=== PATIENT | male | born 1945 | race Caucasian/White ===

== ENCOUNTER 2016-07-19 15:15 | Emergency (ER) | payer MEDICARE, OTHER ==
[~2016-07-19] VITALS: Ht 182.9 cm; Wt 120.0 kg
[~2016-07-19 15:15] MED LIST: ASPI325T PO; B-122000 PO; CO Q100C9 PO; FISH1000 PO; GARL500T PO; GLUCTAB PO; MECL25 PO; METO50TA PO; PRAV40TA2 PO; VITA-13 PO
[2016-07-19 15:33] VITALS: BP 177/84; PULSE 96; RESP 16; TEMP 97.8; O2SAT 99
--- NOTE | 2016-07-19 15:39 | PD ---
HPI Chief Complaint: Abdominal Pain Time Seen by Provider: 15:25 Travel History International Travel<30 days: No Contact w/Intl Traveler<30days: No Traveled to known affect area: No History of Present Illness HPI This patient complains of abdominal pain. Duration 2 days. Severity is moderate. He's had nausea and vomiting. No diarrhea or fever. Symptoms have no alleviating factors. His pain is worse after eating. No history of abdominal surgeries. He denies liver or gallbladder or pancreas disease or being an alcohol abuser. He had initially said chest pain but this is clearly abdominal pain and he is not having chest pain. PFSH Past Medical History Arthritis: Yes Autoimmune Disease: No Blood Disorders: No Anxiety: No Depression: No Heart Rhythm Problems: No Cancer: No Cardiovascular Problems: Yes High Cholesterol: Yes Chemotherapy: Yes Chest Pain: No Congestive Heart Failure: No Cerebrovascular Accident: No Diabetes: Yes Diminished Hearing: No Endocrine: No Gastrointestinal Disorders: No Glaucoma: No Gout: Yes Genitourinary: No Hepatitis: No Hiatal Hernia: No Hypertension: Yes Immune Disorder: No Implanted Vascular Access Dvce: No Kidney Stones: No Musculoskeletal: No Neurologic: No Psychiatric: No Reproductive: No Respiratory: No Migraines: No Pneumonia: Yes Radiation Therapy: No Renal Failure: No Seizures: No Sickle Cell Disease: No Thyroid Disease: No PNEUMOCCOCAL Vaccine (Year): 2009 Past Surgical History Abdominal Surgery: No AICD: No Arteriovenous Shunt: No Body Medical Devices: CONCRETE PUMP OPERATOR HELPER SHUNT Cardiac Surgery: No Ear Surgery: No Endocrine Surgery: No Eye Surgery: No Genitourinary Surgery: No Gynecologic Surgery: No Insulin Pump: No Joint Replacement: Yes Neurologic Surgery: Yes (CONCRETE PUMP OPERATOR HELPER SHUNT) Oral Surgery: No Pacemaker: No Thoracic Surgery: No Tonsillectomy: Yes Other Surgery: Yes (BACK 1978, 1983, 1988, 2013) Social History Alcohol Use: No Tobacco Use: No (QUIT 30 YRS AGO) Substance Use: No Allergies-Medications (Allergen,Severity, Reaction): Coded Allergies: No Known Allergies (Verified , 09/25/15) Reported Meds & Prescriptions Reported Meds & Active Scripts Active Antivert (Meclizine HCl) 25 Mg Tab 25 Mg PO Q8H PRN Reported Garlic Tab 1 Tab PO DAILY Aspirin 325 mg (Aspirin) 325 Mg Tab 0.5 Tab PO DAILY Metoprolol Tartrate 50 mg (Metoprolol Tartrate) 50 Mg Tab 50 Mg PO BID B-12 (Cyanocobalamin) 2,000 Mcg Tab 2,000 Mcg PO DAILY Vitamin D3 (Cholecalciferol) 1,000 Unit Tab 1,000 Unit PO DAILY Co Q 10 (Coenzyme Q10) 100 Mg Cap 100 Mg PO DAILY Fish Oil 1,000 Mg Cap 1,000 Mg PO DAILY Pravastatin Sodium 40 Mg Tab 40 Mg PO HS Metformin (Metformin HCl) 500 Mg Tab 500 Mg PO BID Review of Systems General / Constitutional: No: Fever Eyes: No: Visual changes HENT: No: Headaches Cardiovascular: No: Chest Pain or Discomfort Respiratory: No: Shortness of Breath Gastrointestinal: Positive: Nausea, Vomiting, Abdominal Pain Genitourinary: No: Dysuria Musculoskeletal: No: Pain Skin: No Rash Neurologic: No: Weakness Psychiatric: No: Depression Endocrine: No: Polydipsia Hematologic/Lymphatic: No: Easy Bruising Physical Exam Narrative GENERAL: Well-nourished, well-developed patient with abdominal pain. SKIN: Warm and dry. HEAD: Atraumatic. Normocephalic. Has a CONCRETE PUMP OPERATOR HELPER shunt EYES: Pupils equal and round. No scleral icterus. No injection or drainage. ENT: No nasal bleeding or discharge. Mucous membranes pink and moist. NECK: Trachea midline. No JVD. CARDIOVASCULAR: Regular rate and rhythm. No murmur appreciated. RESPIRATORY: No accessory muscle use. Clear to auscultation. Breath sounds equal bilaterally. GASTROINTESTINAL: Abdomen soft, upper abdomen is tender without rebound or guarding. Lower quadrants are not tender, nondistended. Hepatic and splenic margins not palpable. MUSCULOSKELETAL: No obvious deformities. No clubbing. No cyanosis. No edema. NEUROLOGICAL: Awake and alert. No obvious cranial nerve deficits. Motor grossly within normal limits. Normal speech. PSYCHIATRIC: Appropriate mood and affect; insight and judgment reasonable. Data Data Last Documented VS Vital Signs Date Time Temp Pulse Resp B/P Pulse Ox O2 Delivery O2 Flow Rate FiO2 07/19/16 15:33 97.8 96 16 177/84 99 MDM Medical Decision Making Medical Screen Exam Complete: Yes Emergency Medical Condition: Yes Medical Record Reviewed: Yes Differential Diagnosis Cholecystitis, pancreatitis, hepatitis Narrative Course I have reviewed the patient's electronic medical record. This patient has 2 days of upper abdominal pain. I've ordered a workup to include lab studies and a CT of abdomen and pelvis. Case checked out to 4 PM physician to assist with disposition after workup complete. I did review his EKG which shows sinus rhythm but no ST elevation Pablito Tong MD Jul 19, 2016 15:39
[2016-07-19] MEDS ORDERED: METO50TA PO (15:42)
[2016-07-19] MEDS ORDERED: OMEG100010 PO (15:42)
[2016-07-19] MEDS ORDERED: PRAV40TA2 PO (15:42)
[2016-07-19] MEDS ORDERED: VITA100018 PO (15:42)
[2016-07-19] MEDS ORDERED: GLUCTAB PO (15:42)
[2016-07-19] MEDS ORDERED: B-122000 PO (15:42)
[2016-07-19] MEDS ORDERED: ASPI325T PO (15:42)
[2016-07-19] MEDS ORDERED: COEN1CAP PO (15:42)
[2016-07-19] MEDS ORDERED: ONDANSETRON HCL 4 MG/2 ML VIAL IVP ONE (15:45)
[2016-07-19] MEDS ORDERED: SODIUM CHLORIDE 0.9% FLUSH 5 ML FLUSH IVF PRN (15:45)
[2016-07-19 15:55] VITALS: O2SAT 95
[2016-07-19 16:09] LABS: AUTOMATED NEUTROPHIL # 6.6 TH/MM3 (1.8-7.7); BASOPHIL # 0.1 TH/MM3 (0-0.2); BASOPHIL % 0.6 % (0.0-2.0); EOSINOPHIL # 0.3 TH/MM3 (0-0.4); HEMATOCRIT 44.5 % (39.0-51.0); HEMO FLAGS DIFF FINAL; LYMPH % 28.9 % (9.0-44.0); LYMPHOCYTE # 3.1 TH/MM3 (1.0-4.8); MEAN CELL VOLUME 87.6 FL (80.0-100.0); MEAN CORPUSCULAR HEMOGLOBIN 29.6 PG (27.0-34.0); MEAN CORPUSCULAR HGB CONC 33.7 % (32.0-36.0); MONO % 6.1 % (0.0-8.0); NEUT % 61.4 % (16.0-70.0); PLATELET COUNT 256 TH/MM3 (150-450); RED BLOOD COUNT 5.08 MIL/MM3 (4.50-5.90); RED CELL DISTRIBUTION WIDTH 12.3 % (11.6-17.2); WHITE BLOOD COUNT 10.8 TH/MM3 (4.0-11.0)
[2016-07-19 16:18] LABS: CHLORIDE 102 MEQ/L (98-107); POTASSIUM 4.3 MEQ/L (3.5-5.1); SODIUM (NA) 139 MEQ/L (136-145)
[2016-07-19 16:22] LABS: ANION GAP 12 MEQ/L (5-15); BICARBONATE 24.7 MEQ/L (21.0-32.0); BLOOD UREA NITROGEN 16 MG/DL (7-18)
[2016-07-19 16:23] LABS: APTT (PATIENT) 29.6 SEC (24.3-30.1); PROTHROMBIN TIME - PATIENT 10.7 SEC (9.8-11.6)
[2016-07-19 16:24] LABS: ALT (GPT) 31 U/L (12-78); AST (GOT) 24 U/L (15-37)
[2016-07-19 16:25] LABS: GLOMERULAR FILTRATION RATE 73 ML/MIN (>89)
[2016-07-19 16:26] LABS: TOTAL BILIRUBIN ADULT 0.4 MG/DL (0.2-1.0)
[2016-07-19 16:27] LABS: ALKALINE PHOSPHATASE 70 U/L (45-117)
--- NOTE | 2016-07-19 16:49 | PD ---
Physical Exam Date Seen by Provider: Jul 19, 2016 Time Seen by Provider: 16:48 Narrative This 71-year-old male says he been having abdominal discomfort for quite a while. He thinks this may be a couple of weeks. He says his stomach is churning all of time. He has a lot of gas. Soon after eating he feels like burping up of food before doesn't actually come up. He has a history of diabetes for 3-4 years he has numbness in her legs. Neuropathy. He says his left arm was starting to go numb now. He has tried Mylanta without much relief. He has a CSF shunt Data Data Last Documented VS Vital Signs Date Time Temp Pulse Resp B/P Pulse Ox O2 Delivery O2 Flow Rate FiO2 07/19/16 15:55 95 07/19/16 15:35 16 07/19/16 15:33 97.8 96 177/84 Orders Complete Blood Count With Diff (07/19/16 15:40) Comprehensive Metabolic Panel (07/19/16 15:40) Lipase (07/19/16 15:40) Prothrombin Time / Inr (Pt) (07/19/16 15:40) Act Partial Throm Time (Ptt) (07/19/16 15:40) Ct Abd/Pel W Iv Contrast(Rout) (07/19/16 15:40) Iv Access Insert/Monitor (07/19/16 15:40) Ecg Monitoring (07/19/16 15:40) Oximetry (07/19/16 15:40) NPO (07/19/16 15:40) Ondansetron Inj (Zofran Inj) (07/19/16 15:45) Sodium Chloride 0.9% Flush (Ns Flush) (07/19/16 15:45) Labs Laboratory Tests Test 07/19/16 15:27 White Blood Count 10.8 TH/MM3 Red Blood Count 5.08 MIL/MM3 Hemoglobin 15.0 GM/DL Hematocrit 44.5 % Mean Corpuscular Volume 87.6 FL Mean Corpuscular Hemoglobin 29.6 PG Mean Corpuscular Hemoglobin 33.7 % Concent Red Cell Distribution Width 12.3 % Platelet Count 256 TH/MM3 Mean Platelet Volume 6.7 FL Neutrophils (%) (Auto) 61.4 % Lymphocytes (%) (Auto) 28.9 % Monocytes (%) (Auto) 6.1 % Eosinophils (%) (Auto) 3.0 % Basophils (%) (Auto) 0.6 % Neutrophils # (Auto) 6.6 TH/MM3 Lymphocytes # (Auto) 3.1 TH/MM3 Monocytes # (Auto) 0.7 TH/MM3 Eosinophils # (Auto) 0.3 TH/MM3 Basophils # (Auto) 0.1 TH/MM3 CBC Comment DIFF FINAL Differential Comment Prothrombin Time 10.7 SEC Prothromb Time International 1.0 RATIO Ratio Activated Partial 29.6 SEC Thromboplast Time Sodium Level 139 MEQ/L Potassium Level 4.3 MEQ/L Chloride Level 102 MEQ/L Carbon Dioxide Level 24.7 MEQ/L Anion Gap 12 MEQ/L Blood Urea Nitrogen 16 MG/DL Creatinine 1.00 MG/DL Estimat Glomerular Filtration 73 ML/MIN Rate Random Glucose 121 MG/DL Calcium Level 9.2 MG/DL Total Bilirubin 0.4 MG/DL Aspartate Amino Transf 24 U/L (AST/SGOT) Alanine Aminotransferase 31 U/L (ALT/SGPT) Alkaline Phosphatase 70 U/L Total Protein 7.9 GM/DL Albumin 3.7 GM/DL Lipase 134 U/L [facility] Medical Record Reviewed: No Supervised Visit with KELLY: No Differential Diagnosis Differential includes gastritis, reflux, Narrative Course Lab work is unremarkable. She's Gurdeep ordered a CT scan which has not shown an etiology for the pain. He will be given a trial of an accident. Diagnosis Primary Impression: GERD (gastroesophageal reflux disease) Scripts Pantoprazole (Protonix)40 Mg Tab40 Mg PO DAILY #30 TAB Ref 0 Prov:Virgilio Lizarraga MD 07/19/16 Disposition: 01 DISCHARGE HOME Condition: Stable Virgilio Lizarraga MD Jul 19, 2016 16:49
--- NOTE | 2016-07-19 18:09 | RADHPO ---
EXAM DATE/TIME: 07/19/2016 17:41 [facility] COMPARISON: No previous studies available for comparison. INDICATIONS : Diffuse abdominal pain with nausea and vomiting. IV CONTRAST: 95 cc Omnipaque 350 (iohexol) IV ORAL CONTRAST: No oral contrast ingested. RADIATION DOSE: 21.71 CTDIvol (mGy) MEDICAL HISTORY : Hypertension. Diabetes mellitus type 2. SURGICAL HISTORY : Lumbar fusion. Bilateral hip replacement. ENCOUNTER: Initial ACUITY: 1 day PAIN SCALE: 7/10 LOCATION: Abdomen. TECHNIQUE: Volumetric scanning of the abdomen and pelvis was performed. Using automated exposure control and ad justment of the mA and/or kV according to patient size, radiation dose was kept as low as reasonably achievable to obtain optimal diagnostic quality images. FINDINGS: Lung bases demonstrate minimal linear scarring or atelectasis. Tiny nodules stable compared with 2014 . Moderate to severe coronary calcifications. Diffuse fatty liver. Spleen, adrenals and pancreas unremarkable.. Tiny nonobstructing left renal calc ulus. Right kidney unremarkable. No free fluid. No bowel obstruction. No adenopathy. No free air. Bilateral hip prostheses. CONCLUSION: 1. No acute findings within the abdomen. Stable fatty liver. Catheter fragment remains in right upper quadrant, unchanged from April 2015. Tiny nonobstructing left renal calculus. 2. Severe coronary calcifications. Darryl Laboy MD on July 19, 2016 at 18:02 Board Certified Radiologist. This report was verified electronically.
[2016-07-19] MEDS ORDERED: PROT40TA PO (18:32)
[2016-07-19 18:33] VITALS: BP 149/88
[2016-07-19] MEDS ORDERED: IOHEXOL 350 MG/ML 10 ML VIAL (for RAD DIAG) IV ONE (22:23)
--- NOTE | 2016-07-22 23:07 | EKG ---
Date Performed: 07/19/2016 Time Performed: 15:15:16 PTAGE: 71 years EKG: Sinus tachycardia. ST junctional depression is nonspecific Borderline ECG PREVIOUS TRACING : 09/25/2015 11.01 Compared to prior tracing no significant change DOCTOR: Watson Levine Interpretating Date/Time 07/22/2016 23:05:54
== END 2016-07-19 18:57 | disposition home or self-care (01) ==
LOC: PHED 15:15
DX: K21.9 Gastro-esophageal reflux disease without esophagitis (principal); R11.2 Nausea with vomiting, unspecified; E78.00 Pure hypercholesterolemia, unspecified; E11.9 Type 2 diabetes mellitus without complications; I10 Essential (primary) hypertension; R94.31 Abnormal electrocardiogram [ECG] [EKG]
CPT/HCPCS: 74177; 80053; 83690; 85025; 85610; 85730; 93005; 96374; 99284; J2405; Q9967

== ENCOUNTER 2016-11-23 17:59 | Emergency (ER) | payer OTHER ==
[~2016-11-23] VITALS: Ht 182.9 cm; Wt 118.7 kg
[~2016-11-23 17:59] MED LIST changes: -CO Q100C9 PO; +COEN1CAP PO; -FISH1000 PO; -GARL500T PO; -MECL25 PO; +OMEG100010 PO; +PROT40TA PO; -VITA-13 PO; +VITA100018 PO
[2016-11-23 18:08] VITALS: BP 154/88; PULSE 91; RESP 16; TEMP 98.5; O2SAT 94
[2016-11-23] MEDS ORDERED: PYRI100T PO (18:24)
[2016-11-23] MEDS ORDERED: CINN500C12 PO (18:24)
[2016-11-23 18:25] VITALS: BP 150/78; PULSE 77; RESP 18; O2SAT 95
[2016-11-23] MEDS ORDERED: SODIUM CHLOR 0.9% 1000 ML INJ 1,000 ML IV SCH (18:44)
[2016-11-23] MEDS ORDERED: MORPHINE SULFATE 4 MG/ML INJ IV PUSH ONE (18:45)
[2016-11-23] MEDS ORDERED: ONDANSETRON HCL 4 MG/2 ML VIAL IVP ONE (18:45)
[2016-11-23] MEDS ORDERED: SODIUM CHLORIDE 0.9% FLUSH 10 ML FLUSH IV FLUSH PRN (18:45)
[2016-11-23 18:54] LABS: AUTOMATED NEUTROPHIL # 6.8 TH/MM3 (1.8-7.7); BASOPHIL % 0.2 % (0.0-2.0); EOSINOPHIL # 0.3 TH/MM3 (0-0.4); EOSINOPHIL % 2.5 % (0.0-4.0); HEMATOCRIT 45.3 % (39.0-51.0); HEMO FLAGS DIFF FINAL; LYMPHOCYTE # 2.6 TH/MM3 (1.0-4.8); MEAN CELL VOLUME 89.2 FL (80.0-100.0); MEAN CORPUSCULAR HEMOGLOBIN 29.3 PG (27.0-34.0); MEAN CORPUSCULAR HGB CONC 32.8 % (32.0-36.0); NEUT % 65.3 % (16.0-70.0); PLATELET COUNT 252 TH/MM3 (150-450); RED BLOOD COUNT 5.07 MIL/MM3 (4.50-5.90); RED CELL DISTRIBUTION WIDTH 13.2 % (11.6-17.2); WHITE BLOOD COUNT 10.4 TH/MM3 (4.0-11.0)
--- NOTE | 2016-11-23 18:57 | PD ---
HPI Chief Complaint: Abdominal Pain Time Seen by Provider: 18:39 Travel History International Travel<30 days: No Contact w/Intl Traveler<30days: No Traveled to known affect area: No History of Present Illness HPI Patient is a 71-year-old male presents emergency department with left lower quadrant abdominal pain with nausea without vomiting diarrhea constipation for the past few days gradually worsening. Patient states it comes on in waves. States she's not had pain like this before. Denies any abdominal surgeries in the past. Patient does state he has a history of a PROPOSAL ANALYST shunt. States the pain is moderate worsens with palpation. Cramping in nature. Denies any dysuria. Denies any fever. Denies any chest pain headache shortness of breath. PFSH Past Medical History Arthritis: Yes Autoimmune Disease: No Blood Disorders: No Anxiety: No Depression: No Heart Rhythm Problems: No Cancer: No Cardiovascular Problems: Yes High Cholesterol: Yes Chemotherapy: Yes Chest Pain: No Congestive Heart Failure: No Cerebrovascular Accident: No Diabetes: Yes Patient Takes Glucophage: Yes ([id number]) Diminished Hearing: No Endocrine: No Gastrointestinal Disorders: No Glaucoma: No Gout: Yes Genitourinary: No Hepatitis: No Hiatal Hernia: No Hypertension: Yes Immune Disorder: No Implanted Vascular Access Dvce: Yes Kidney Stones: No Musculoskeletal: No Neurologic: No Psychiatric: No Reproductive: No Respiratory: No Immunizations Current: Yes Migraines: No Pneumonia: Yes Radiation Therapy: No Renal Failure: No Seizures: No Sickle Cell Disease: No Thyroid Disease: No Tetanus Vaccination: < 5 Years Influenza Vaccination: Yes PNEUMOCCOCAL Vaccine (Year): 2009 Past Surgical History Abdominal Surgery: No AICD: No Arteriovenous Shunt: No Body Medical Devices: PROPOSAL ANALYST SHUNT Cardiac Surgery: No Ear Surgery: No Endocrine Surgery: No Eye Surgery: No Genitourinary Surgery: No Gynecologic Surgery: No Insulin Pump: No Joint Replacement: Yes (HIPS) Neurologic Surgery: Yes (PROPOSAL ANALYST SHUNT) Oral Surgery: No Pacemaker: No Thoracic Surgery: No Tonsillectomy: Yes Other Surgery: Yes (PROPOSAL ANALYST SHUNT) Social History Alcohol Use: No Tobacco Use: No (QUIT 30 YRS AGO) Substance Use: No Allergies-Medications (Allergen,Severity, Reaction): Coded Allergies: No Known Allergies (Verified , 11/23/16) Reported Meds & Prescriptions Reported Meds & Active Scripts Active Zofran Odt (Ondansetron Odt) 4 Mg Tab 4 Mg SL Q6HR PRN Bentyl (Dicyclomine HCl) 10 Mg Cap 10 Mg PO TID PRN Protonix (Pantoprazole Sodium) 40 Mg Tab 40 Mg PO DAILY Reported Hm Cinnamon (Cinnamon) 500 Mg Cap 2,000 Mg PO DAILY Vitamin B-6 (Pyridoxine HCl) 100 Mg Tab 100 Mg PO DAILY Pravastatin 40 Mg Tab 40 Mg PO HS [place] 3 1000 mg ([place]-3 Fatty Acids) 1 Cap Cap 1 Cap PO DAILY Metoprolol Tartrate 50 Mg Tab 50 Mg PO BID Glucophage XR (Metformin HCl) 500 Mg Shawna 500 Mg PO BID With evening meal B-12 (Cyanocobalamin) 2,000 Mcg Tab 2,000 Mcg PO DAILY Co Q-10 (Coenzyme Q10 (Ubidecarenone)) 100 Mg Cap 1 Cap PO DAILY Vitamin D3 (Cholecalciferol) 1,000 Unit Tab 2,000 Units PO DAILY Aspirin 325 Mg Tab 0.5 Tab PO DAILY Review of Systems Except as stated in HPI: all other systems reviewed are Neg Physical Exam Narrative GENERAL: Well-developed well-nourished no apparent distress SKIN: No bruising no rash no wound. HEAD: Atraumatic. Normocephalic. EYES: Pupils equal and round. No scleral icterus. No injection or drainage. ENT: No nasal bleeding or discharge. Mucous membranes pink and moist. NECK: Trachea midline. No JVD. CARDIOVASCULAR: Regular rate and rhythm. No murmur appreciated. RESPIRATORY: No accessory muscle use. Clear to auscultation. Breath sounds equal bilaterally. GASTROINTESTINAL: Abdomen soft, moderately tender in the left lower quadrant without rebound or percussive tenderness. Fairly well localizing abdominal pain. No CVA tenderness. nondistended. Hepatic and splenic margins not palpable. Overlying skin normal. MUSCULOSKELETAL: No obvious deformities. No clubbing. No cyanosis. No edema. NEUROLOGICAL: Awake and alert. No obvious cranial nerve deficits. Motor grossly within normal limits. Normal speech. PSYCHIATRIC: Appropriate mood and affect; insight and judgment normal. Data Data Last Documented VS Vital Signs Date Time Temp Pulse Resp B/P Pulse Ox O2 Delivery O2 Flow Rate FiO2 11/23/16 21:02 70 17 150/71 96 11/23/16 20:18 Room Air 11/23/16 18:08 98.5 Orders Complete Blood Count With Diff (11/23/16 18:44) Comprehensive Metabolic Panel (11/23/16 18:44) Lipase (11/23/16 18:44) Urinalysis - C+S If Indicated (11/23/16 18:44) Ct Abd/Pel W Iv Contrast(Rout) (11/23/16 18:44) Iv Access Insert/Monitor (11/23/16 18:44) Ecg Monitoring (11/23/16 18:44) Oximetry (11/23/16 18:44) Morphine Inj (Morphine Inj) (11/23/16 18:45) Ondansetron Inj (Zofran Inj) (11/23/16 18:45) Sodium Chlor 0.9% 1000 Ml Inj (Ns 1000 M (11/23/16 18:44) Sodium Chloride 0.9% Flush (Ns Flush) (11/23/16 18:45) Iohexol 350 Inj (Omnipaque 350 Inj) (11/23/16 19:42) Urine Culture (11/23/16 19:40) Labs Laboratory Tests Test 11/23/16 11/23/16 18:25 19:40 White Blood Count 10.4 TH/MM3 Red Blood Count 5.07 MIL/MM3 Hemoglobin 14.9 GM/DL Hematocrit 45.3 % Mean Corpuscular Volume 89.2 FL Mean Corpuscular Hemoglobin 29.3 PG Mean Corpuscular Hemoglobin 32.8 % Concent Red Cell Distribution Width 13.2 % Platelet Count 252 TH/MM3 Mean Platelet Volume 6.7 FL Neutrophils (%) (Auto) 65.3 % Lymphocytes (%) (Auto) 25.0 % Monocytes (%) (Auto) 7.0 % Eosinophils (%) (Auto) 2.5 % Basophils (%) (Auto) 0.2 % Neutrophils # (Auto) 6.8 TH/MM3 Lymphocytes # (Auto) 2.6 TH/MM3 Monocytes # (Auto) 0.7 TH/MM3 Eosinophils # (Auto) 0.3 TH/MM3 Basophils # (Auto) 0.0 TH/MM3 CBC Comment DIFF FINAL Differential Comment Sodium Level 140 MEQ/L Potassium Level 3.9 MEQ/L Chloride Level 105 MEQ/L Carbon Dioxide Level 27.8 MEQ/L Anion Gap 7 MEQ/L Blood Urea Nitrogen 16 MG/DL Creatinine 0.95 MG/DL Estimat Glomerular Filtration 78 ML/MIN Rate Random Glucose 134 MG/DL Calcium Level 8.8 MG/DL Total Bilirubin 0.3 MG/DL Aspartate Amino Transf 19 U/L (AST/SGOT) Alanine Aminotransferase 35 U/L (ALT/SGPT) Alkaline Phosphatase 83 U/L Total Protein 7.3 GM/DL Albumin 3.6 GM/DL Lipase 125 U/L Urine Color YELLOW Urine Turbidity CLEAR Urine pH 5.5 Urine Specific [place] 1.019 Urine Protein NEG mg/dL Urine Glucose (UA) NEG mg/dL Urine Ketones NEG mg/dL Urine Occult Blood NEG Urine Nitrite NEG Urine Bilirubin NEG Urine Leukocyte Esterase NEG Urine RBC 0-3 /hpf Urine WBC 3-5 /hpf Urine WBC Clumps OCC Urine Squamous Epithelial 0-5 /hpf Cells Urine Calcium Oxalate Crystals RARE /hpf Urine Mucus OCC /lpf Microscopic Urinalysis Comment CULTURE INDICATED MDM Medical Decision Making Medical Screen Exam Complete: Yes Emergency Medical Condition: Yes Differential Diagnosis Diverticulitis, colitis, constipation, diverticular abscess, acute abdomen unlikely, cholecystitis and likely, pancreatitis unlikely, urinary tract infection, kidney stone seems unlikely. Narrative Course Patient was roomed emergency department, he was given morphine and Zofran. Feeling somewhat better afterward still having some abdominal cramping. He states that his stools have been fairly hard recently as well. Denies any blood in the stool again. Initial workup including CBC CMP and urinalysis are reassuring. Patient underwent CAT scan showing no obvious cause of his pain. Discussed with the patient's symptom management and management. He would like to go home currently. I discussed need for follow-up with his primary care physician return to ED criteria. Discussed using [id number] stool softeners including MiraLAX and prune juice. He is agreeable for an outpatient trial. Diagnosis Primary Impression: LLQ abdominal pain Referrals: Laquita Chacko MD Med/Other Pt SpecificInfo: Prescription(s) given Scripts Ondansetron Odt (Zofran Odt)4 Mg Tab4 Mg SL Q6HR PRN (Nausea/Vomiting) #30 TAB Ref 0 Prov:Eladio Weinberg MD 11/23/16 Dicyclomine (Bentyl)10 Mg Cap10 Mg PO TID PRN (Bowel Management) #20 CAP Ref 0 Prov:Eladio Weinberg MD 11/23/16 Disposition: 01 DISCHARGE HOME Condition: Stable Eladio eWinberg MD November 23, 2016 18:57
[2016-11-23 18:59] VITALS: O2SAT 95
[2016-11-23 19:03] LABS: CHLORIDE 105 MEQ/L (98-107); POTASSIUM 3.9 MEQ/L (3.5-5.1); SODIUM (NA) 140 MEQ/L (136-145)
[2016-11-23 19:05] VITALS: BP 144/76; PULSE 76; RESP 16; O2SAT 95
[2016-11-23 19:07] LABS: ANION GAP 7 MEQ/L (5-15); BICARBONATE 27.8 MEQ/L (21.0-32.0); BLOOD UREA NITROGEN 16 MG/DL (7-18)
[2016-11-23 19:10] LABS: ALT (GPT) 35 U/L (12-78); AST (GOT) 19 U/L (15-37); GLOMERULAR FILTRATION RATE 78 ML/MIN (>89)
[2016-11-23 19:11] LABS: TOTAL BILIRUBIN ADULT 0.3 MG/DL (0.2-1.0)
[2016-11-23 19:12] LABS: ALKALINE PHOSPHATASE 83 U/L (45-117)
[2016-11-23] MEDS ORDERED: IOHEXOL 350 MG/ML 10 ML VIAL (for RAD DIAG) IV ONE (19:42)
[2016-11-23 19:55] LABS: BLOOD, URINE NEG (NEG); GLUCOSE,URINE NEG (NEG); KETONE, URINE NEG (NEG); NITRITE,URINE NEG (NEG); PH, URINE 5.5 (5.0-8.5)
--- NOTE | 2016-11-23 20:01 | RADHPO ---
EXAM DATE/TIME: 11/23/2016 19:25 [facility] COMPARISON: CT ABDOMEN & PELVIS W CONTRAST, July 19, 2016, 17:41. INDICATIONS : Left side abdominal pain. IV CONTRAST: 95 cc Omnipaque 350 (iohexol) IV ORAL CONTRAST: No oral contrast ingested. RADIATION DOSE: 22.94 CTDIvol (mGy) MEDICAL HISTORY : Hypertension. Diabetes mellitus type 2. SURGICAL HISTORY : RAILROAD POLICE shunt, lumbar surgery, bilateral hip surgery ENCOUNTER: Initial ACUITY: 1 week PAIN SCALE: 4/10 LOCATION: Left lateral TECHNIQUE: Volumetric scanning of the abdomen and pelvis was performed. Using automated exposure control and ad justment of the mA and/or kV according to patient size, radiation dose was kept as low as reasonably achievable to obtain optimal diagnostic quality images. FINDINGS: Moderate coronary artery calcifications are noted. There is no pericardial effusion. Liver is free of focal defects. Spinal stimulator lead is noted. Spleen, pancreas, adrenal glands and kidneys are unremarkable. There is no ascites or adenopathy. I do not see any inflammatory changes in the left side of the abdomen. Pelvic contents are unremarkable. Total hip arthroplasty is present. CONCLUSION: 1. I do not see an etiology for the patient's left-sided abdominal pain. There is no evidence for p yelonephritis or inflammatory component. 2. There are degenerative changes in the lumbar spine. Hitesh Gillis MD FACR on November 23, 2016 at 19:52 Board Certified Radiologist. This report was verified electronically.
[2016-11-23 20:17] LABS: URINE COLOR YELLOW (YELLW/STRAW)
[2016-11-23 20:18] VITALS: BP 153/79; PULSE 74; RESP 18; O2SAT 96
[2016-11-23 20:18] LABS: MUCUS URINE OCC /lpf (OCC); RBC, URINE 0-3 /hpf (0-3)
[2016-11-23 20:19] LABS: CALCIUM OXALATE CRYSTALS,URINE RARE /hpf; SQUAMOUS EPITHELIAL CELL URINE 0-5 /hpf (0-5)
[2016-11-23 20:21] LABS: COMMENT (UR) CULTURE INDICATED; CULTURE IF INDICATED CULTURE INDICATED
[2016-11-23] MEDS ORDERED: DICY10 PO (20:46)
[2016-11-23] MEDS ORDERED: ZOFR4TAB3 SL (20:46)
[2016-11-23 21:02] VITALS: BP 150/71
== END 2016-11-23 21:02 | disposition home or self-care (01) ==
LOC: PHED 17:59
DX: R10.32 Left lower quadrant pain (principal); E78.00 Pure hypercholesterolemia, unspecified; M10.9 Gout, unspecified; I10 Essential (primary) hypertension; Z98.2 Presence of cerebrospinal fluid drainage device
CPT/HCPCS: 74177; 80053; 81001; 83690; 85025; 87086; 96361; 96374; 96375; 99285; J2270; J2405; J7030; Q9967

== ENCOUNTER 2017-01-24 16:58 | Emergency (ER) | payer OTHER ==
[~2017-01-24 16:58] MED LIST changes: +CINN500C12 PO; +DICY10 PO; +PYRI100T PO; +ZOFR4TAB3 SL
[2017-01-24 17:04] VITALS: BP 160/115; PULSE 92; RESP 22; TEMP 98.3; O2SAT 96
[2017-01-24 17:18] VITALS: BP 175/80; PULSE 80; RESP 18; TEMP 98.3; O2SAT 94
--- NOTE | 2017-01-24 17:26 | PD ---
HPI Chief Complaint: Abnormal Results Time Seen by Provider: 17:10 Travel History International Travel<30 days: No Contact w/Intl Traveler<30days: No Traveled to known affect area: No History of Present Illness HPI This patient reports that he is been having difficulty controlling his blood sugar for the last couple of days. He says is normally around 115. Today he checked it and it was 250 so he came to the emergency room out of concern for that. He reports compliance with his metformin. He does not use insulin. He has chronic diabetic neuropathy in his feet. He complains of nausea but has no vomiting or diarrhea or fever or abdominal pain or chest pain or presyncopal symptoms. No alleviating factors. Symptoms severity is mild. Duration 2 days PFSH Past Medical History Arthritis: Yes Autoimmune Disease: No Blood Disorders: No Anxiety: No Depression: No Heart Rhythm Problems: No Cancer: No Cardiovascular Problems: Yes High Cholesterol: Yes Chemotherapy: Yes Chest Pain: No Congestive Heart Failure: No Cerebrovascular Accident: No Diabetes: Yes Diminished Hearing: No Endocrine: No Gastrointestinal Disorders: No Glaucoma: No Gout: Yes Genitourinary: No Hepatitis: No Hiatal Hernia: No Hypertension: Yes Immune Disorder: No Implanted Vascular Access Dvce: Yes Kidney Stones: No Musculoskeletal: No Neurologic: No Psychiatric: No Reproductive: No Respiratory: No Immunizations Current: Yes Migraines: No Pneumonia: Yes Radiation Therapy: No Renal Failure: No Seizures: No Sickle Cell Disease: No Thyroid Disease: No PNEUMOCCOCAL Vaccine (Year): 2009 Past Surgical History Abdominal Surgery: No AICD: No Arteriovenous Shunt: No Body Medical Devices: CARDIOVASCULAR SURGICAL TECH SHUNT Cardiac Surgery: No Ear Surgery: No Endocrine Surgery: No Eye Surgery: No Genitourinary Surgery: No Gynecologic Surgery: No Insulin Pump: No Joint Replacement: Yes (HIPS) Neurologic Surgery: Yes (CARDIOVASCULAR SURGICAL TECH SHUNT) Oral Surgery: No Pacemaker: No Thoracic Surgery: No Tonsillectomy: Yes Other Surgery: Yes (CARDIOVASCULAR SURGICAL TECH SHUNT) Social History Alcohol Use: No Tobacco Use: No (QUIT 30 YRS AGO) Substance Use: No Allergies-Medications (Allergen,Severity, Reaction): Coded Allergies: No Known Allergies (Verified , 01/24/17) Reported Meds & Prescriptions Reported Meds & Active Scripts Active Zofran Odt (Ondansetron Odt) 4 Mg Tab 4 Mg SL Q6HR PRN Bentyl (Dicyclomine HCl) 10 Mg Cap 10 Mg PO TID PRN Protonix (Pantoprazole Sodium) 40 Mg Tab 40 Mg PO DAILY Reported Hm Cinnamon (Cinnamon) 500 Mg Cap 2,000 Mg PO DAILY Vitamin B-6 (Pyridoxine HCl) 100 Mg Tab 100 Mg PO DAILY Pravastatin 40 Mg Tab 40 Mg PO HS [place] 3 1000 mg ([place]-3 Fatty Acids) 1 Cap Cap 1 Cap PO DAILY Metoprolol Tartrate 50 Mg Tab 50 Mg PO BID Glucophage XR (Metformin HCl) 500 Mg Shawna 500 Mg PO BID With evening meal B-12 (Cyanocobalamin) 2,000 Mcg Tab 2,000 Mcg PO DAILY Co Q-10 (Coenzyme Q10 (Ubidecarenone)) 100 Mg Cap 1 Cap PO DAILY Vitamin D3 (Cholecalciferol) 1,000 Unit Tab 2,000 Units PO DAILY Aspirin 325 Mg Tab 0.5 Tab PO DAILY Review of Systems General / Constitutional: No: Fever Eyes: No: Visual changes HENT: No: Headaches Cardiovascular: No: Chest Pain or Discomfort Respiratory: No: Shortness of Breath Gastrointestinal: Positive: Nausea, No: Abdominal Pain Genitourinary: No: Dysuria Musculoskeletal: No: Pain Skin: No Rash Neurologic: Positive: Sensory Disturbance, No: Weakness Psychiatric: No: Depression Endocrine: No: Polydipsia Hematologic/Lymphatic: No: Easy Bruising Physical Exam Narrative GENERAL: Well-nourished, well-developed patient in no apparent distress. SKIN: Focused skin assessment reveals no rash and nodules. Skin is Warm and dry. HEAD: Atraumatic. Normocephalic. EYES: Pupils equal and round. No scleral icterus. No injection or drainage. ENT: No nasal bleeding or discharge. Mucous membranes pink and moist. NECK: Trachea midline. No JVD. CARDIOVASCULAR: Regular rate and rhythm. No murmur appreciated. RESPIRATORY: No accessory muscle use. Clear to auscultation. Breath sounds equal bilaterally. GASTROINTESTINAL: Abdomen soft, non-tender, nondistended. Hepatic and splenic margins not palpable. MUSCULOSKELETAL: No obvious deformities. No clubbing. No cyanosis. No edema. NEUROLOGICAL: Awake and alert. No obvious cranial nerve deficits. Motor grossly within normal limits. Normal speech. PSYCHIATRIC: Appropriate mood and affect; insight and judgment normal. Data Data Last Documented VS Vital Signs Date Time Temp Pulse Resp B/P Pulse Ox O2 Delivery O2 Flow Rate FiO2 01/24/17 17:18 98.3 80 18 175/80 94 Room Air Orders Iv Access Insert/Monitor (01/24/17 17:20) Ondansetron Inj (Zofran Inj) (01/24/17 17:30) Sodium Chlor 0.9% 1000 Ml Inj (Ns 1000 M (01/24/17 17:30) Complete Blood Count With Diff (01/24/17 17:20) Basic Metabolic Panel (Bmp) (01/24/17 17:20) Labs Laboratory Tests Test 01/24/17 17:46 White Blood Count 8.3 TH/MM3 Red Blood Count 4.66 MIL/MM3 Hemoglobin 14.0 GM/DL Hematocrit 41.0 % Mean Corpuscular Volume 88.0 FL Mean Corpuscular Hemoglobin 30.1 PG Mean Corpuscular Hemoglobin 34.2 % Concent Red Cell Distribution Width 12.4 % Platelet Count 224 TH/MM3 Mean Platelet Volume 6.3 FL Neutrophils (%) (Auto) 65.1 % Lymphocytes (%) (Auto) 20.6 % Monocytes (%) (Auto) 8.2 % Eosinophils (%) (Auto) 3.7 % Basophils (%) (Auto) 2.4 % Neutrophils # (Auto) 5.4 TH/MM3 Lymphocytes # (Auto) 1.7 TH/MM3 Monocytes # (Auto) 0.7 TH/MM3 Eosinophils # (Auto) 0.3 TH/MM3 Basophils # (Auto) 0.2 TH/MM3 CBC Comment DIFF FINAL Differential Comment Sodium Level 138 MEQ/L Potassium Level 4.3 MEQ/L Chloride Level 104 MEQ/L Carbon Dioxide Level 25.5 MEQ/L Anion Gap 9 MEQ/L Blood Urea Nitrogen 15 MG/DL Creatinine 0.89 MG/DL Estimat Glomerular Filtration 84 ML/MIN Rate Random Glucose 204 MG/DL Calcium Level 8.9 MG/DL [facility] Medical Decision Making Medical Screen Exam Complete: Yes Emergency Medical Condition: Yes Medical Record Reviewed: Yes Differential Diagnosis Hyperglycemia, DKA, dehydration Narrative Course I have reviewed the patient's electronic medical record. IV placed CBC is normal Metabolic profile is normal except for mild hyperglycemia of 204 I gave him IV Zofran and 1 L normal saline IV accucheck here is 223 Patient is clinically doing well on recheck. He is euvolemic. He has no neurologic deficit or headache, does not need shunt eval I advised him to check and record sugar frequently and check his blood pressure daily and discussed results with his primary physician Diagnosis Primary Impression: Hyperglycemia due to type 2 diabetes mellitus Qualified Code: E11.65 - Type 2 diabetes mellitus with hyperglycemia, without long-term current use of insulin Additional Impressions: Nausea Malaise Additional Instructions: The patient was advised to follow up with their physician and return if they worsen. Check and record blood sugar frequently Check and record blood pressure daily Med/Other Pt SpecificInfo: Other Disposition: 01 DISCHARGE HOME Condition: Stable Pablito Tong MD Jan 24, 2017 17:26
[2017-01-24] MEDS ORDERED: ONDANSETRON HCL 4 MG/2 ML VIAL IVP ONE (17:30)
[2017-01-24] MEDS ORDERED: SODIUM CHLOR 0.9% 1000 ML INJ 1,000 ML IV ONE (17:30)
[2017-01-24 17:51] LABS: AUTOMATED NEUTROPHIL # 5.4 TH/MM3 (1.8-7.7); BASOPHIL # 0.2 TH/MM3 (0-0.2); BASOPHIL % 2.4 % (0.0-2.0); EOSINOPHIL # 0.3 TH/MM3 (0-0.4); EOSINOPHIL % 3.7 % (0.0-4.0); HEMO FLAGS DIFF FINAL; LYMPH % 20.6 % (9.0-44.0); LYMPHOCYTE # 1.7 TH/MM3 (1.0-4.8); MEAN CORPUSCULAR HEMOGLOBIN 30.1 PG (27.0-34.0); MEAN CORPUSCULAR HGB CONC 34.2 % (32.0-36.0); MONO % 8.2 % (0.0-8.0); NEUT % 65.1 % (16.0-70.0); PLATELET COUNT 224 TH/MM3 (150-450); RED BLOOD COUNT 4.66 MIL/MM3 (4.50-5.90); RED CELL DISTRIBUTION WIDTH 12.4 % (11.6-17.2); WHITE BLOOD COUNT 8.3 TH/MM3 (4.0-11.0)
[2017-01-24 17:59] LABS: POTASSIUM 4.3 MEQ/L (3.5-5.1)
[2017-01-24 18:02] LABS: BICARBONATE 25.5 MEQ/L (21.0-32.0)
[2017-01-24 18:34] VITALS: BP 140/75; PULSE 71; RESP 16; O2SAT 97
== END 2017-01-24 18:49 | disposition home or self-care (01) ==
LOC: PHED 16:58
DX: E11.65 Type 2 diabetes mellitus with hyperglycemia (principal); R11.0 Nausea; R53.81 Other malaise; E11.40 Type 2 diabetes mellitus with diabetic neuropathy, unspecified; I10 Essential (primary) hypertension; E78.00 Pure hypercholesterolemia, unspecified; Z79.84 Long term (current) use of oral hypoglycemic drugs; Z87.39 Personal history of other diseases of the musculoskeletal system and connective tissue; Z86.79 Personal history of other diseases of the circulatory system; Z87.01 Personal history of pneumonia (recurrent)
CPT/HCPCS: 80048; 85025; 96361; 96374; 99284; J2405; J7030

== ENCOUNTER 2017-03-31 17:01 | Emergency (ER) | payer OTHER ==
[~2017-03-31] VITALS: Ht 182.9 cm; Wt 99.0 kg
[2017-03-31 17:14] VITALS: BP 195/99; PULSE 108; RESP 20; TEMP 98; O2SAT 94
[2017-03-31 17:20] VITALS: BP 183/98; PULSE 95; RESP 20; O2SAT 95
[2017-03-31] MEDS ORDERED: METF1000 PO (17:27)
[2017-03-31] MEDS ORDERED: METF500T PO (17:27)
--- NOTE | 2017-03-31 17:40 | PD ---
HPI Chief Complaint: General Weakness Time Seen by Provider: 17:10 Travel History International Travel<30 days: No Contact w/Intl Traveler<30days: No Traveled to known affect area: No History of Present Illness HPI This patient complains of generalized weakness. His primary complaint is hyperglycemia. He says his sugars have been running high at home. He says the running around 200. Current Accu-Chek is 158. He has chronic pins and needles and numbness in both legs below the knee from diabetic neuropathy. No change in this today. He is ambulatory. He denies fever or chest pain. Symptoms severity is moderate. No alleviating factors. He says that symptoms are worsened when his sugar is high. Duration is one day PFSH Past Medical History Arthritis: Yes Autoimmune Disease: No Blood Disorders: No Anxiety: No Depression: No Heart Rhythm Problems: No Cancer: No Cardiovascular Problems: Yes High Cholesterol: Yes Chemotherapy: Yes Chest Pain: No Congestive Heart Failure: No Cerebrovascular Accident: No Diabetes: Yes Patient Takes Glucophage: Yes Diminished Hearing: No Endocrine: No Gastrointestinal Disorders: No Glaucoma: No Gout: Yes Genitourinary: No Hepatitis: No Hiatal Hernia: No Hypertension: Yes Immune Disorder: No Implanted Vascular Access Dvce: Yes Kidney Stones: No Musculoskeletal: No Neurologic: No Psychiatric: No Reproductive: No Respiratory: No Immunizations Current: Yes Migraines: No Pneumonia: Yes Radiation Therapy: No Renal Failure: No Seizures: No Sickle Cell Disease: No Thyroid Disease: No Influenza Vaccination: No PNEUMOCCOCAL Vaccine (Year): 2009 Past Surgical History Abdominal Surgery: No AICD: No Arteriovenous Shunt: No Body Medical Devices: ELECTRICAL APPLIANCE PREPARER SHUNT Cardiac Surgery: No Ear Surgery: No Endocrine Surgery: No Eye Surgery: No Genitourinary Surgery: No Gynecologic Surgery: No Insulin Pump: No Joint Replacement: Yes (HIPS) Neurologic Surgery: Yes (ELECTRICAL APPLIANCE PREPARER SHUNT) Oral Surgery: No Pacemaker: No Thoracic Surgery: No Tonsillectomy: Yes Other Surgery: Yes (ELECTRICAL APPLIANCE PREPARER SHUNT) Social History Alcohol Use: No Tobacco Use: No (QUIT 30 YRS AGO) Substance Use: No Allergies-Medications (Allergen,Severity, Reaction): Coded Allergies: No Known Allergies (Verified , 03/31/17) Reported Meds & Prescriptions Reported Meds & Active Scripts Active Protonix (Pantoprazole Sodium) 40 Mg Tab 40 Mg PO DAILY Reported Metformin (Metformin HCl) 500 Mg Tab 500 Mg PO Q 5PM With a meal Metformin (Metformin HCl) 1,000 Mg Tab 1,000 Mg PO AC BREAKFAST With a meal Hm Cinnamon (Cinnamon) 500 Mg Cap 2,000 Mg PO DAILY Vitamin B-6 (Pyridoxine HCl) 100 Mg Tab 100 Mg PO DAILY Pravastatin 40 Mg Tab 40 Mg PO HS [place] 3 1000 mg ([place]-3 Fatty Acids) 1 Cap Cap 1 Cap PO DAILY Metoprolol Tartrate 50 Mg Tab 50 Mg PO BID Co Q-10 (Coenzyme Q10 (Ubidecarenone)) 100 Mg Cap 1 Cap PO DAILY Vitamin D3 (Cholecalciferol) 1,000 Unit Tab 2,000 Units PO DAILY Aspirin 325 Mg Tab 0.5 Tab PO DAILY Review of Systems General / Constitutional: No: Fever Eyes: No: Visual changes HENT: No: Headaches Cardiovascular: No: Chest Pain or Discomfort Respiratory: No: Shortness of Breath Gastrointestinal: No: Abdominal Pain Genitourinary: No: Dysuria Musculoskeletal: Positive: Weakness, No: Pain Skin: No Rash Neurologic: Positive: Weakness, Paresthesia, Sensory Disturbance Psychiatric: No: Depression Endocrine: No: Polydipsia Hematologic/Lymphatic: No: Easy Bruising Physical Exam Narrative GENERAL: Well-nourished, well-developed patient in no apparent distress. SKIN: Focused skin assessment reveals no rash and nodules. Skin is Warm and dry. HEAD: Atraumatic. Normocephalic. EYES: Pupils equal and round. No scleral icterus. No injection or drainage. ENT: No nasal bleeding or discharge. Mucous membranes pink and moist. NECK: Trachea midline. No JVD. CARDIOVASCULAR: Regular rate and rhythm. No murmur appreciated. RESPIRATORY: No accessory muscle use. Clear to auscultation. Breath sounds equal bilaterally. GASTROINTESTINAL: Abdomen soft, non-tender, nondistended. Hepatic and splenic margins not palpable. MUSCULOSKELETAL: No obvious deformities. No clubbing. No cyanosis. No edema. NEUROLOGICAL: Awake and alert. No obvious cranial nerve deficits. Motor grossly within normal limits. Normal speech. PSYCHIATRIC: Appropriate mood and affect; insight and judgment normal. Data Data Last Documented VS Vital Signs Date Time Temp Pulse Resp B/P (MAP) Pulse Ox O2 Delivery O2 Flow Rate FiO2 03/31/17 18:19 92 18 173/86 (115) 96 Room Air 03/31/17 17:14 98.0 Orders Orders Clonidine (Catapres) (03/31/17 17:45) Iv Access Insert/Monitor (03/31/17 17:31) Complete Blood Count With Diff (03/31/17 17:31) Basic Metabolic Panel (Bmp) (03/31/17 17:31) Labs Laboratory Tests Test 03/31/17 17:40 White Blood Count 10.0 TH/MM3 Red Blood Count 4.74 MIL/MM3 Hemoglobin 13.9 GM/DL Hematocrit 41.7 % Mean Corpuscular Volume 88.0 FL Mean Corpuscular Hemoglobin 29.4 PG Mean Corpuscular Hemoglobin Concent 33.4 % Red Cell Distribution Width 12.2 % Platelet Count 239 TH/MM3 Mean Platelet Volume 6.0 FL Neutrophils (%) (Auto) 67.3 % Lymphocytes (%) (Auto) 22.5 % Monocytes (%) (Auto) 6.9 % Eosinophils (%) (Auto) 2.9 % Basophils (%) (Auto) 0.4 % Neutrophils # (Auto) 6.7 TH/MM3 Lymphocytes # (Auto) 2.3 TH/MM3 Monocytes # (Auto) 0.7 TH/MM3 Eosinophils # (Auto) 0.3 TH/MM3 Basophils # (Auto) 0.0 TH/MM3 CBC Comment DIFF FINAL Differential Comment Blood Urea Nitrogen 14 MG/DL Creatinine 1.00 MG/DL Random Glucose 186 MG/DL Calcium Level 9.0 MG/DL Sodium Level 138 MEQ/L Potassium Level 3.8 MEQ/L Chloride Level 103 MEQ/L Carbon Dioxide Level 26.7 MEQ/L Anion Gap 8 MEQ/L Estimat Glomerular Filtration Rate 73 ML/MIN [facility] Medical Decision Making Medical Screen Exam Complete: Yes Emergency Medical Condition: Yes Medical Record Reviewed: Yes Differential Diagnosis Hyperglycemia, DKA, electrolyte abnormality, anxiety Narrative Course I have reviewed the patient's electronic medical record. Patient is here October 2016 for abdominal pain and had CT scan of abdomen and pelvis without AAA Patient is neurologically intact to objective exam. Complains of diminished sensation below the knees bilaterally. No clinical suspicion of acute stroke. His symptoms are vague and generalized and basically he feels weak and is worried about his blood sugar. IV placed CBC is normal Metabolic profile is normal except for mild hyperglycemia Patient has accelerated hypertension. I gave him a dose of clonidine and will reassess blood pressure Blood pressure somewhat improved. Stable for outpatient follow-up. Diagnosis Primary Impression: Generalized weakness Additional Impressions: Hyperglycemia due to type 2 diabetes mellitus Qualified Codes: E11.65 - Type 2 diabetes mellitus with hyperglycemia Accelerated hypertension Additional Instructions: The patient was advised to follow up with their physician and return if they worsen. Med/Other Pt SpecificInfo: Other Disposition: 01 DISCHARGE HOME Condition: Stable Pablito Tong MD Mar 31, 2017 17:40
[2017-03-31] MEDS ORDERED: cloNIDine HCL 0.2 MG TAB PO ONE (17:45)
[2017-03-31 17:52] LABS: AUTOMATED NEUTROPHIL # 6.7 TH/MM3 (1.8-7.7); BASOPHIL % 0.4 % (0.0-2.0); EOSINOPHIL # 0.3 TH/MM3 (0-0.4); EOSINOPHIL % 2.9 % (0.0-4.0); HEMATOCRIT 41.7 % (39.0-51.0); HEMO FLAGS DIFF FINAL; LYMPH % 22.5 % (9.0-44.0); LYMPHOCYTE # 2.3 TH/MM3 (1.0-4.8); MEAN CORPUSCULAR HEMOGLOBIN 29.4 PG (27.0-34.0); MEAN CORPUSCULAR HGB CONC 33.4 % (32.0-36.0); MONO % 6.9 % (0.0-8.0); NEUT % 67.3 % (16.0-70.0); PLATELET COUNT 239 TH/MM3 (150-450); RED BLOOD COUNT 4.74 MIL/MM3 (4.50-5.90); RED CELL DISTRIBUTION WIDTH 12.2 % (11.6-17.2)
[2017-03-31 18:03] LABS: POTASSIUM 3.8 MEQ/L (3.5-5.1)
[2017-03-31 18:06] LABS: BICARBONATE 26.7 MEQ/L (21.0-32.0)
[2017-03-31 18:19] VITALS: BP 173/86; PULSE 92; RESP 18; O2SAT 96
[2017-03-31 19:31] VITALS: BP 162/79
== END 2017-03-31 19:34 | disposition home or self-care (01) ==
LOC: PHED 17:01
DX: E11.65 Type 2 diabetes mellitus with hyperglycemia (principal); I10 Essential (primary) hypertension; E78.00 Pure hypercholesterolemia, unspecified
CPT/HCPCS: 80048; 85025; 99283

== ENCOUNTER 2017-05-22 09:36 | Emergency (ER) | payer OTHER ==
[~2017-05-22] VITALS: Ht 182.9 cm; Wt 117.0 kg
[~2017-05-22 09:36] MED LIST changes: +ASPI-183 PO; -ASPI325T PO; -B-122000 PO; +CINN1CAP PO; -CINN500C12 PO; -DICY10 PO; -GLUCTAB PO; +METF1000 PO; +METF500T PO; -ZOFR4TAB3 SL
[2017-05-22 09:41] VITALS: BP 182/86; PULSE 89; RESP 16; TEMP 98.1; O2SAT 98
[2017-05-22 10:06] LABS: BLOOD, URINE NEG (NEG); GLUCOSE,URINE NEG (NEG); KETONE, URINE NEG (NEG); NITRITE,URINE NEG (NEG)
[2017-05-22 10:08] LABS: METHOD OF COLLECTION CLEAN CATCH; URINE COLOR YELLOW (YELLW/STRAW)
--- NOTE | 2017-05-22 10:13 | PD ---
HPI Chief Complaint: Headache Time Seen by Provider: 09:54 Travel History International Travel<30 days: No Contact w/Intl Traveler<30days: No Traveled to known affect area: No History of Present Illness HPI patient c/o head pressure, generalized, 5/10, no visual changes, states that he has a flow coordinator shunt placed several years ago....patient also c/o urinary frequency, urgency, but no dysuria currently... 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, neuropathy PFSH Past Medical History Hx Anticoagulant Therapy: Yes (162mg asa) Arthritis: Yes Autoimmune Disease: No Blood Disorders: No Anxiety: No Depression: No Heart Rhythm Problems: No Cancer: No Cardiovascular Problems: Yes (htn on meds) High Cholesterol: Yes Chemotherapy: Yes Chest Pain: No Congestive Heart Failure: No Cerebrovascular Accident: No Diabetes: Yes (type 2) Patient Takes Glucophage: Yes Diminished Hearing: No Endocrine: No Gastrointestinal Disorders: No Glaucoma: No Gout: Yes Genitourinary: No Hepatitis: No Hiatal Hernia: No Hypertension: Yes Immune Disorder: No Implanted Vascular Access Dvce: Yes Kidney Stones: No Musculoskeletal: No Neurologic: No Psychiatric: No Reproductive: No Respiratory: No Immunizations Current: Yes Migraines: No Pneumonia: Yes Radiation Therapy: No Renal Failure: No Seizures: No Sickle Cell Disease: No Thyroid Disease: No Influenza Vaccination: Yes PNEUMOCCOCAL Vaccine (Year): 2009 Past Surgical History Abdominal Surgery: No AICD: No Arteriovenous Shunt: No Body Medical Devices: TREND INVESTIGATOR SHUNT Cardiac Surgery: No Ear Surgery: No Endocrine Surgery: No Eye Surgery: No Genitourinary Surgery: No Gynecologic Surgery: No Insulin Pump: No Joint Replacement: Yes (HIPS) Neurologic Surgery: Yes (TREND INVESTIGATOR SHUNT) Oral Surgery: No Pacemaker: No Thoracic Surgery: No Tonsillectomy: Yes Other Surgery: Yes (TREND INVESTIGATOR SHUNT) Social History Alcohol Use: No Tobacco Use: No (QUIT 30 YRS AGO) Substance Use: No Allergies-Medications (Allergen,Severity, Reaction): Coded Allergies: No Known Allergies (Verified , 03/31/17) Reported Meds & Prescriptions Reported Meds & Active Scripts Active Protonix (Pantoprazole Sodium) 40 Mg Tab 40 Mg PO DAILY Reported Metformin (Metformin HCl) 1,000 Mg Tab 1,000 Mg PO BIDAC With a meal Hm Cinnamon (Cinnamon) 500 Mg Cap 2,000 Mg PO DAILY Vitamin B-6 (Pyridoxine HCl) 100 Mg Tab 100 Mg PO DAILY Pravastatin 40 Mg Tab 40 Mg PO HS [place] 3 1000 mg ([place]-3 Fatty Acids) 1 Cap Cap 1 Cap PO DAILY Metoprolol Tartrate 50 Mg Tab 50 Mg PO BID Co Q-10 (Coenzyme Q10 (Ubidecarenone)) 100 Mg Cap 1 Cap PO DAILY Vitamin D3 (Cholecalciferol) 1,000 Unit Tab 2,000 Units PO DAILY Aspirin 325 Mg Tab 0.5 Tab PO DAILY Review of Systems Except as stated in HPI: all other systems reviewed are Neg General / Constitutional: No: Fever Eyes: No: Visual changes HENT: Positive: Headaches Cardiovascular: No: Chest Pain or Discomfort Respiratory: No: Shortness of Breath Gastrointestinal: No: Abdominal Pain Genitourinary: Positive: Urgency, Frequency, Dysuria Musculoskeletal: No: Pain Skin: No Rash Neurologic: No: Weakness Psychiatric: No: Depression Endocrine: No: Polydipsia Hematologic/Lymphatic: No: Easy Bruising Physical Exam Narrative GENERAL: SKIN: Warm and dry. HEAD: Atraumatic. Normocephalic. EYES: Pupils equal and round. No scleral icterus. No injection or drainage. ENT: No nasal bleeding or discharge. Mucous membranes pink and moist. NECK: Trachea midline. No JVD. CARDIOVASCULAR: Regular rate and rhythm. RESPIRATORY: No accessory muscle use. Clear to auscultation. Breath sounds equal bilaterally. GASTROINTESTINAL: Abdomen soft, non-tender, nondistended. MUSCULOSKELETAL: Extremities without clubbing, cyanosis, or edema. No obvious deformities. NEUROLOGICAL: Awake and alert. No obvious cranial nerve deficits. Motor grossly within normal limits. Five out of 5 muscle strength in the arms and legs. Normal speech. PSYCHIATRIC: Appropriate mood and affect; insight and judgment normal. Data Data Last Documented VS Vital Signs Date Time Temp Pulse Resp B/P (MAP) Pulse Ox O2 Delivery O2 Flow Rate FiO2 05/22/17 10:42 75 18 163/86 (111) 97 Room Air 05/22/17 09:41 98.1 Orders Orders Urinalysis - C+S If Indicated (05/22/17 09:56) Ct Brain W/O Iv Contrast(Rout) (05/22/17 09:56) Drug Screen, Random Urine (05/22/17 09:56) Labs Laboratory Tests Test 05/22/17 10:00 Urine Collection Type CLEAN CATCH Urine Color YELLOW Urine Turbidity CLEAR Urine pH 7.0 Urine Specific [place] 1.017 Urine Protein NEG mg/dL Urine Glucose (UA) NEG mg/dL Urine Ketones NEG mg/dL Urine Occult Blood NEG Urine Nitrite NEG Urine Bilirubin NEG Urine Leukocyte Esterase TRACE Urine WBC 0-2 /hpf Microscopic Urinalysis Comment CULT NOT INDICATED Urine Opiates Screen NEG Urine Barbiturates Screen NEG Urine Amphetamines Screen NEG Urine Benzodiazepines Screen NEG Urine Cocaine Screen NEG Urine Cannabinoids Screen NEG MDM Medical Decision Making Medical Screen Exam Complete: Yes Emergency Medical Condition: Yes Medical Record Reviewed: Yes Differential Diagnosis ich v hydrocephalus due to nonworking shunt v sinusitis v uti Narrative Course NO E/O ICH, SHUNT IN PLACE AND NO DISPLACEMENT NOR ANY SINUSITIS, NO HYDROCEPHALUS CHANGED WHEN C/W PREVIOUS CT. Diagnosis Primary Impression: headache Patient Instructions: Acute Headache (ED), General Instructions Scripts [id number] (Fioricet) 50-300-40 Mg Cap 1 CAP PO Q4H Y for HEADACHE, #12 CAP 0 Refills Prov: Nikhil Montelongo MD 05/22/17 Ondansetron Odt (Zofran Odt) 4 Mg Tab 4 MG SL Q6HR Y for Nausea/Vomiting, #12 TAB 0 Refills Prov: Nikhil Montelongo MD 05/22/17 Disposition: 01 DISCHARGE HOME Condition: Stable Nikhil Montelongo MD May 22, 2017 10:13
[2017-05-22 10:14] LABS: COMMENT (UR) CULT NOT INDICATED; CULTURE IF INDICATED CULT NOT INDICATED; WBC, URINE 0-2 /hpf (0-5)
[2017-05-22 10:42] VITALS: BP 163/86; PULSE 75; RESP 18; O2SAT 97
--- NOTE | 2017-05-22 11:31 | RADRPT ---
EXAM DATE/TIME: 05/22/2017 10:46 [facility] COMPARISON: CT BRAIN W/O CONTRAST, September 25, 2015, 11:12. INDICATIONS : Syncopal episode. Cephalgia. RADIATION DOSE: 59.98 CTDIvol (mGy) MEDICAL HISTORY : Hypertension. SURGICAL HISTORY : RN TRANSFER shunt ENCOUNTER: Initial ACUITY: 1 day PAIN SCALE: 6/10 LOCATION: Bilateral cranial TECHNIQUE: Multiple contiguous axial images were obtained of the head. Using automated exposure control and adj ustment of the mA and/or kV according to patient size, radiation dose was kept as low as reasonably a chievable to obtain optimal diagnostic quality images. DICOM format image data is available electro nically for review and comparison. FINDINGS: CEREBRUM: Ventriculostomy catheter stable in position. The ventricles are symmetrically dilated, similar to pr ior examination in 2016. There is good mc-white matter differentiation. No evidence of acute bloo d products or extra-axial fluid. POSTERIOR FOSSA: The cerebellum and brainstem are intact. The 4th ventricle is midline. The cerebellopontine angle i s unremarkable. EXTRACRANIAL: The visualized portion of the orbits is intact. SKULL: The calvaria is intact. No evidence of skull fracture. CONCLUSION: 1. Stable prominence of the ventricles with ventriculostomy catheter in place. Overall, unchanged fr om August 2015. 2. No acute findings of the brain. Reed Nelson MD on May 22, 2017 at 11:28 Board Certified Radiologist. This report was verified electronically.
[2017-05-22 11:39] VITALS: BP 136/60; PULSE 75; RESP 18; O2SAT 95
[2017-05-22] MEDS ORDERED: ZOFR4TAB3 SL (11:40)
[2017-05-22] MEDS ORDERED: BUTA1CAP PO (11:40)
== END 2017-05-22 11:45 | disposition home or self-care (01) ==
LOC: PHED 09:36
DX: R51 Headache (principal); E78.00 Pure hypercholesterolemia, unspecified; E11.40 Type 2 diabetes mellitus with diabetic neuropathy, unspecified; I10 Essential (primary) hypertension; Z79.84 Long term (current) use of oral hypoglycemic drugs; Z79.899 Other long term (current) drug therapy; Z87.891 Personal history of nicotine dependence
CPT/HCPCS: 70450; 80307; 81001

== ENCOUNTER 2017-06-12 16:30 | Observation (INO) | payer OTHER ==
[~2017-06-12] VITALS: Ht 188 cm; Wt 120.0 kg
[2017-06-12 00:35] VITALS: PULSE 71
[~2017-06-12 16:30] MED LIST changes: +BUTA1CAP PO; -METF500T PO; +ZOFR4TAB3 SL
[2017-06-12 16:32] VITALS: BP 123/69; PULSE 83; RESP 21; TEMP 98.2; O2SAT 96
--- NOTE | 2017-06-12 17:06 | PD ---
HPI Chief Complaint: Chest Pain Time Seen by Provider: 16:39 Travel History International Travel<30 days: No Contact w/Intl Traveler<30days: No Traveled to known affect area: No History of Present Illness HPI 72-year-old male complains of chest pain. Patient states that the chest pain started about 4 hours prior to arrival to the emergency room. Patient states that the chest pain substernal pressure without radiation. Patient denies palpitation nausea vomiting diaphoresis. Patient denies any fever chills. Patient denies any coughing congestion. EMS was called. Patient was given nitroglycerin sublingual 3 with complete resolution of the chest pain. Patient took aspirin 162 mg this morning. Patient takes aspirin 162 mg by mouth daily. Patient has history hypertension, diabetes, hyperlipidemia. Patient is a nonsmoker. Patient has family history of heart disease. Patient has history of normal pressure hydrocephalus status post ANAESTHESIOLOGIST shunt placement in the past. PFSH Past Medical History Hx Anticoagulant Therapy: Yes (162mg asa) Arthritis: Yes Autoimmune Disease: No Blood Disorders: No Anxiety: No Depression: No Heart Rhythm Problems: No Cancer: No Cardiovascular Problems: Yes (htn on meds) High Cholesterol: Yes Chemotherapy: Yes Chest Pain: No Congestive Heart Failure: No Cerebrovascular Accident: No Diabetes: Yes (type 2) Patient Takes Glucophage: Yes Diminished Hearing: No Endocrine: No Gastrointestinal Disorders: No Glaucoma: No Gout: Yes Genitourinary: No Hepatitis: No Hiatal Hernia: No Hypertension: Yes Immune Disorder: No Implanted Vascular Access Dvce: Yes Kidney Stones: No Musculoskeletal: No Neurologic: No Psychiatric: No Reproductive: No Respiratory: No Immunizations Current: Yes Migraines: No Pneumonia: Yes Radiation Therapy: No Renal Failure: No Seizures: No Sickle Cell Disease: No Thyroid Disease: No Tetanus Vaccination: > 5 Years Influenza Vaccination: Yes PNEUMOCCOCAL Vaccine (Year): 2009 Past Surgical History Abdominal Surgery: No AICD: No Arteriovenous Shunt: No Body Medical Devices: ANAESTHESIOLOGIST SHUNT Cardiac Surgery: No Ear Surgery: No Endocrine Surgery: No Eye Surgery: No Genitourinary Surgery: No Gynecologic Surgery: No Insulin Pump: No Joint Replacement: Yes (HIPS) Neurologic Surgery: Yes (ANAESTHESIOLOGIST SHUNT) Oral Surgery: No Pacemaker: No Thoracic Surgery: No Tonsillectomy: Yes Other Surgery: Yes (ANAESTHESIOLOGIST SHUNT) Social History Alcohol Use: No Tobacco Use: No Substance Use: No Allergies-Medications (Allergen,Severity, Reaction): Coded Allergies: No Known Allergies (Verified Allergy, Unknown, 06/12/17) Reported Meds & Prescriptions Reported Meds & Active Scripts Active Reported Losartan (Losartan Potassium) 50 Mg Tab 50 Mg PO DAILY Metformin (Metformin HCl) 1,000 Mg Tab 1,000 Mg PO BID With meals Hm Cinnamon (Cinnamon) 500 Mg Cap 2,000 Mg PO DAILY Vitamin B-6 (Pyridoxine HCl) 100 Mg Tab 100 Mg PO DAILY Pravastatin 40 Mg Tab 40 Mg PO HS [place] 3 1000 mg ([place]-3 Fatty Acids) 1 Cap Cap 1,000 Mg PO DAILY Metoprolol Tartrate 50 Mg Tab 50 Mg PO BID Co Q-10 (Coenzyme Q10 (Ubidecarenone)) 100 Mg Cap 100 Mg PO DAILY Vitamin D3 (Cholecalciferol) 1,000 Unit Tab 2,000 Units PO DAILY Aspirin 325 Mg Tab 0.5 Tab PO DAILY Review of Systems General / Constitutional: No: Fever Eyes: No: Visual changes HENT: No: Headaches Cardiovascular: No: Chest Pain or Discomfort Respiratory: No: Shortness of Breath Gastrointestinal: No: Abdominal Pain Genitourinary: No: Dysuria Musculoskeletal: No: Pain Skin: No Rash Neurologic: No: Weakness Psychiatric: No: Depression Endocrine: No: Polydipsia Hematologic/Lymphatic: No: Easy Bruising Physical Exam Narrative GENERAL: Well-nourished, well-developed patient. SKIN: Focused skin assessment warm/dry. HEAD: Normocephalic. EYES: No scleral icterus. No injection or drainage. NECK: Supple, trachea midline. No JVD or lymphadenopathy. CARDIOVASCULAR: Regular rate and rhythm without murmurs, gallops, or rubs. RESPIRATORY: Breath sounds equal bilaterally. No accessory muscle use. GASTROINTESTINAL: Abdomen soft, non-tender, nondistended. MUSCULOSKELETAL: No cyanosis, or edema. BACK: Nontender without obvious deformity. No CVA tenderness. Data Data Last Documented VS Vital Signs Date Time Temp Pulse Resp B/P (MAP) Pulse Ox O2 Delivery O2 Flow Rate FiO2 06/12/17 16:38 21 98 Nasal Cannula 3.00 06/12/17 16:32 98.2 83 123/69 (87) Orders Orders Electrocardiogram (06/12/17 16:41) Complete Blood Count With Diff (06/12/17 16:41) Comprehensive Metabolic Panel (06/12/17 16:41) Creatine Kinase (Cpk) (06/12/17 16:41) Troponin I (06/12/17 16:41) Prothrombin Time / Inr (Pt) (06/12/17 16:41) Act Partial Throm Time (Ptt) (06/12/17 16:41) Chest, Single Ap (06/12/17 16:41) Iv Access Insert/Monitor (06/12/17 16:41) Ecg Monitoring (06/12/17 16:41) Oximetry (06/12/17 16:41) Admit Order (Ed Use Only) (06/12/17 19:05) Labs Laboratory Tests Test 06/12/17 16:56 White Blood Count 9.1 TH/MM3 Red Blood Count 4.57 MIL/MM3 Hemoglobin 14.4 GM/DL Hematocrit 40.7 % Mean Corpuscular Volume 89.1 FL Mean Corpuscular Hemoglobin 31.4 PG Mean Corpuscular Hemoglobin Concent 35.3 % Red Cell Distribution Width 13.4 % Platelet Count 218 TH/MM3 Mean Platelet Volume 6.3 FL Neutrophils (%) (Auto) 65.7 % Lymphocytes (%) (Auto) 23.4 % Monocytes (%) (Auto) 7.4 % Eosinophils (%) (Auto) 3.1 % Basophils (%) (Auto) 0.4 % Neutrophils # (Auto) 6.0 TH/MM3 Lymphocytes # (Auto) 2.1 TH/MM3 Monocytes # (Auto) 0.7 TH/MM3 Eosinophils # (Auto) 0.3 TH/MM3 Basophils # (Auto) 0.0 TH/MM3 CBC Comment DIFF FINAL Differential Comment Prothrombin Time 10.3 SEC Prothromb Time International Ratio 1.0 RATIO Activated Partial Thromboplast Time 30.8 SEC Blood Urea Nitrogen 12 MG/DL Creatinine 0.83 MG/DL Random Glucose 144 MG/DL Total Protein 7.4 GM/DL Albumin 3.6 GM/DL Calcium Level 8.8 MG/DL Alkaline Phosphatase 78 U/L Aspartate Amino Transf (AST/SGOT) 13 U/L Alanine Aminotransferase (ALT/SGPT) 26 U/L Total Bilirubin 0.3 MG/DL Sodium Level 134 MEQ/L Potassium Level 3.9 MEQ/L Chloride Level 98 MEQ/L Carbon Dioxide Level 26.1 MEQ/L Anion Gap 10 MEQ/L Estimat Glomerular Filtration Rate 91 ML/MIN Total Creatine Kinase 50 U/L Troponin I LESS THAN 0.02 NG/ML MDM Medical Decision Making Medical Screen Exam Complete: Yes Emergency Medical Condition: Yes Interpretation(s) EKG shows sinus rhythm nonspecific ST-T wave change. Last Impressions Chest X-Ray 06/12/17 1641 Signed Impressions: Service Date/Time: May 17:07 - CONCLUSION: Hypoaerated lungs without evidence of acute air space disease or significant congestion. Tobias Lilly MD 1902 p.m. CBC within normal limit. CMP within normal limit. Cardiac enzymes are normal. Differential Diagnosis Differential diagnosis including angina, MA, PE, pneumothorax. Narrative Course 72-year-old male with chest pain. Patient states that the chest pain resolved with nitroglycerin sublingually. Patient will be admitted to the chest pain center. Diagnosis Primary Impression: Chest pain Qualified Codes: R07.9 - Chest pain, unspecified Admitting Information Admitting Physician Requests: Observation Man De La Garza MD Jun 12, 2017 17:06
[2017-06-12 17:11] LABS: BASOPHIL % 0.4 % (0.0-2.0); EOSINOPHIL # 0.3 TH/MM3 (0-0.4); EOSINOPHIL % 3.1 % (0.0-4.0); HEMATOCRIT 40.7 % (39.0-51.0); HEMO FLAGS DIFF FINAL; LYMPH % 23.4 % (9.0-44.0); LYMPHOCYTE # 2.1 TH/MM3 (1.0-4.8); MEAN CELL VOLUME 89.1 FL (80.0-100.0); MEAN CORPUSCULAR HEMOGLOBIN 31.4 PG (27.0-34.0); MEAN CORPUSCULAR HGB CONC 35.3 % (32.0-36.0); MONO % 7.4 % (0.0-8.0); NEUT % 65.7 % (16.0-70.0); PLATELET COUNT 218 TH/MM3 (150-450); RED BLOOD COUNT 4.57 MIL/MM3 (4.50-5.90); RED CELL DISTRIBUTION WIDTH 13.4 % (11.6-17.2); WHITE BLOOD COUNT 9.1 TH/MM3 (4.0-11.0)
--- NOTE | 2017-06-12 17:12 | RADRPT ---
EXAM DATE/TIME: 06/12/2017 17:07 [facility] COMPARISON: CHEST SINGLE AP, January 26, 2015, 6:16. INDICATIONS : Chest pain. MEDICAL HISTORY : None. SURGICAL HISTORY : None. ENCOUNTER: Initial ACUITY: 1 day PAIN SCORE: 9/10 LOCATION: middle chest. FINDINGS: Lungs are hypoaerated otherwise clear. There is no evidence of acute air space disease or significant congestion. Heart remains within normal limits in size. Radiopaque shunt catheter seen along the right side of the neck extending through the chest into the abdomen. CONCLUSION: Hypoaerated lungs without evidence of acute air space disease or significant congestion. Tobias Lilly MD on June 12, 2017 at 17:09 Board Certified Radiologist. This report was verified electronically.
[2017-06-12 17:21] LABS: APTT (PATIENT) 30.8 SEC (24.3-30.1); PROTHROMBIN TIME - PATIENT 10.3 SEC (9.8-11.6)
[2017-06-12 17:29] LABS: ANION GAP 10 MEQ/L (5-15); AST (GOT) 13 U/L (15-37); BICARBONATE 26.1 MEQ/L (21.0-32.0); BLOOD UREA NITROGEN 12 MG/DL (7-18); CHLORIDE 98 MEQ/L (98-107); GLOMERULAR FILTRATION RATE 91 ML/MIN (>89); POTASSIUM 3.9 MEQ/L (3.5-5.1); SODIUM (NA) 134 MEQ/L (136-145)
[2017-06-12 17:30] LABS: ALT (GPT) 26 U/L (12-78)
[2017-06-12 17:33] LABS: ALKALINE PHOSPHATASE 78 U/L (45-117); TOTAL BILIRUBIN ADULT 0.3 MG/DL (0.2-1.0)
[2017-06-12 17:38] LABS: CREATINE KINASE 50 U/L (39-308)
[2017-06-12] MEDS ORDERED: LOSA50TA PO (18:38)
[2017-06-12] MEDS ORDERED: NITROGLYCERIN 0.4 MG SL 25 TABS/BTL SL PRN (19:15)
[2017-06-12] MEDS ORDERED: SODIUM CHLORIDE 0.9% FLUSH 10 ML FLUSH IV FLUSH PRN (19:15)
[2017-06-12] MEDS ORDERED: ACETAMINOPHEN 500 MG CPLT PO PRN (19:15)
[2017-06-12 19:30] VITALS: BP 113/59; PULSE 69; RESP 16; O2SAT 98
[2017-06-12 20:38] LABS: CREATINE KINASE 47 U/L (39-308)
[2017-06-12 21:32] VITALS: BP 140/67; PULSE 75; RESP 24; TEMP 97.6; O2SAT 95
[2017-06-12 21:59] VITALS: O2SAT 95
[2017-06-13] VITALS (8 sets, daily range): BP systolic 135–164; BP diastolic 70–81; PULSE 70–90; RESP 20–24; TEMP 95.9–97.6; O2SAT 93–98
[2017-06-13] MEDS: SODIUM CHLORIDE 0.9% FLUSH 10 ML FLUSH IV FLUSH SCH ×2 (00:15→11:11)
[2017-06-13 00:19] LABS: CREATINE KINASE 83 U/L (39-308)
[2017-06-13] MEDS ORDERED: ACETAMINOPHEN 500 MG CPLT PO PRN (07:45)
[2017-06-13] MEDS ORDERED: ONDANSETRON HCL 4 MG/2 ML VIAL IV PUSH PRN (07:45)
[2017-06-13] MEDS ORDERED: NITROGLYCERIN 0.4 MG SL 25 TABS/BTL SL PRN (07:45)
--- NOTE | 2017-06-13 08:44 | EKG ---
Date Performed: 06/12/2017 Time Performed: 23:26:43 PTAGE: 72 years EKG: Sinus rhythm WITH OCCASIONAL VENTRICULAR PREMATURE COMPLEXES MODERATE INTRAVENTRICULAR CONDUCTION DELAY MINIMAL S T DEPRESSION BORDERLINE ECG PREVIOUS TRACING : 06/12/2017 19.57 Since previous tracing, no significant change noted DOCTOR: Ayaan Macdonald Interpretating Date/Time 06/13/2017 08:42:32
--- NOTE | 2017-06-13 08:45 | EKG ---
Date Performed: 06/12/2017 Time Performed: 19:57:18 PTAGE: 72 years EKG: Sinus rhythm MODERATE INTRAVENTRICULAR CONDUCTION DELAY MINIMAL ST DEPRESSION BORDERLINE ECG PREVIOUS TRACING : 07/19/2016 15.15 Since previous tracing, no significant change noted DOCTOR: Ayaan Macdonald Interpretating Date/Time 06/13/2017 08:43:47
--- NOTE | 2017-06-13 08:46 | EKG ---
Date Performed: 06/12/2017 Time Performed: 16:33:01 PTAGE: 72 years EKG: Sinus rhythm MODERATE INTRAVENTRICULAR CONDUCTION DELAY MINIMAL ST DEPRESSION BORDERLINE ECG INTERPRETATION BASED ON A DEFAULT AGE OF 40 YEARS NO PREVIOUS TRACING DOCTOR: Ayaan Macdonald Interpretating Date/Time 06/13/2017 08:45:09
[2017-06-13] MEDS ORDERED: ASPIRIN 325 MG TAB PO SCH (09:00)
--- NOTE | 2017-06-13 09:45 | HHI.HP ---
[facility] Primary Care Physician Faina Willett MD Chief Complaint Chest pain History of Present Illness 72-year-old patient with history of hypertension, type 2 diabetes, and hyperlipidemia presents to emergency room for further evaluation chest pain. Reports frequent "spells occurring over and over again" of chest pain, leg weakness, and left arm numbness. Yesterday developed a "another spell." Onset 1 PM. Location substernal. Characterized as a "weight on my chest." Associated with dizziness, legs become heavy, and left arm became numb. Severity moderate. Associated symptoms include dyspnea. Denied nausea, vomiting, or diaphoresis. Duration approximately 1 hour. In fact he drove himself to his primary care provider for further evaluation. Once arriving his primary care office EMS was called. No known precipitating factors. Although suspects possibly high blood pressure may contribute reporting elevated blood pressures during episodes 220/110. Relieving factors Nitroglycerin sublingual given in EVAC, reporting pain relieved "fairly quickly." Has remains chest pain free since arrival to chest pain center. Reports 3 separate episodes since . Review of Systems General: No fatigue,weakness, fever, chills, recent illness, or change in appetite. Has been in his general state of health. Endorses he has not been taking his BP medications on an "as needed basis" stating he did not know he was supposed to take medications daily. HEENT: No LOPEZ, no vision changes, no nasal congestion or drainage, no dysphasia CV: As stated above. No current chest pain or pressure. RESP: No SOB, cough, wheeze, or recent URI. GI: No nausea, vomiting, bowel changes, diarrhea, constipation, pain, distention , melena, or blood in the stool. : No dysuria, urgency, frequency EXT: No lower leg edema. Bilateral lower leg neuropathy. MS: No discomfort or change in ROM. NEURO: No change in memory, dizziness, difficulty with balance, LOC, motor/ sensory deficits PSYCH: No anxiety or depression SKIN: No rashes, no concerning lesions Past Family Social History Allergies: Coded Allergies: No Known Allergies (Verified Allergy, Unknown, 06/12/17) Past Medical History Hypertension, HLD, DM type II, cardiomyopathy, hiatal hernia Past Surgical History SPOOL SALVAGER shunt 3-4 years ago, bilateral hip replacements, x4 lumbar surgeries Reported Medications Reported Meds & Active Scripts Reported Losartan (Losartan Potassium) 50 Mg Tab 50 Mg PO DAILY-HAS NOT BEEN TAKING DAILY , REPORTS TAKING NEEDED Metformin (Metformin HCl) 1,000 Mg Tab 1,000 Mg PO BID With meals Hm Cinnamon (Cinnamon) 500 Mg Cap 2,000 Mg PO DAILY Vitamin B-6 (Pyridoxine HCl) 100 Mg Tab 100 Mg PO DAILY Pravastatin 40 Mg Tab 40 Mg PO HS [place] 3 1000 mg ([place]-3 Fatty Acids) 1 Cap Cap 1,000 Mg PO DAILY Metoprolol Tartrate 50 Mg Tab 50 Mg PO BID Co Q-10 (Coenzyme Q10 (Ubidecarenone)) 100 Mg Cap 100 Mg PO DAILY Vitamin D3 (Cholecalciferol) 1,000 Unit Tab 2,000 Units PO DAILY Aspirin 325 Mg Tab 0.5 Tab PO DAILY Vitamin C 1000mg QD Active Ordered Medications Current Medications Medications (Trade) Dose Ordered Sig/Lucy Route Start Time Stop Time Status Last Admin (NS Flush) 2 ml UNSCH PRN IV FLUSH 06/12/17 19:15 (NS Flush) 2 ml BID IV FLUSH 06/12/17 21:00 06/13/17 00:15 (Tylenol) 500 mg Q4H PRN PO 06/13/17 07:45 (Zofran Inj) 4 mg Q6H PRN IV PUSH 06/13/17 07:45 (Nitrostat Sl) 0.4 mg Q5M PRN SL 06/13/17 07:45 (Aspirin) 325 mg DAILY PO 06/13/17 09:00 Family History Brother CABGx4 age 62. Social History Known diabetes, hyperlipidemia, and hypertension. No known CAD. Former smoker, quitting over 30 years ago. Denies alcohol. Endorses an active lifestyle going to gym daily. Working mostly weight training and cycling. Past cardiac testing None Physical Exam Vital Signs Vital Signs Date Time Temp Pulse Resp B/P (MAP) Pulse Ox O2 Delivery O2 Flow Rate FiO2 06/13/17 07:39 96.2 75 24 145/75 (98) 93 06/13/17 05:49 97.6 77 22 135/70 (91) 96 06/13/17 04:08 77 06/13/17 00:44 97.6 70 24 137/71 (93) 95 06/12/17 21:59 95 21 06/12/17 21:32 97.6 75 24 140/67 (91) 95 06/12/17 20:01 06/12/17 19:30 69 16 113/59 (77) 98 Nasal Cannula 2.00 06/12/17 16:38 21 98 Nasal Cannula 3.00 06/12/17 16:32 98.2 83 21 123/69 (87) 96 Physical Exam GENERAL: Alert WN, WD, NAD, pleasant, slightly anxious, male HEAD: NC, AT NECK: Supple, no masses, trachea midline CV: RRR, without murmur, rub, gallop, no JVD, S1-S2 no S3-S4. RESP: Clear lungs throughout bilateral, no crackles, wheeze, rhonchi, symmetrical chest rise, nonlabored, able to speak in full sentences ABD: Soft, NT, ND, no masses, positive bowel tones EXT: Pulses +24, no dependent edema MS: Normal tone 4 extremities, nontender, no obvious deformities, full range of motion NEURO: CN II through CN XII grossly intact, motor strength 5/5 PSYCH: A+O 3, pleasant affect, appropriate speech, mood, insight and judgment SKIN: Normal turgor, normal texture, no lesions, no rashes Laboratory Laboratory Tests Test 06/12/17 16:56 06/12/17 19:45 06/12/17 23:15 White Blood Count 9.1 Red Blood Count 4.57 Hemoglobin 14.4 Hematocrit 40.7 Mean Corpuscular Volume 89.1 Mean Corpuscular Hemoglobin 31.4 Mean Corpuscular Hemoglobin Concent 35.3 Red Cell Distribution Width 13.4 Platelet Count 218 Mean Platelet Volume 6.3 Neutrophils (%) (Auto) 65.7 Lymphocytes (%) (Auto) 23.4 Monocytes (%) (Auto) 7.4 Eosinophils (%) (Auto) 3.1 Basophils (%) (Auto) 0.4 Neutrophils # (Auto) 6.0 Lymphocytes # (Auto) 2.1 Monocytes # (Auto) 0.7 Eosinophils # (Auto) 0.3 Basophils # (Auto) 0.0 CBC Comment DIFF FINAL Differential Comment Prothrombin Time 10.3 Prothromb Time International Ratio 1.0 Activated Partial Thromboplast Time 30.8 Blood Urea Nitrogen 12 Creatinine 0.83 Random Glucose 144 Total Protein 7.4 Albumin 3.6 Calcium Level 8.8 Alkaline Phosphatase 78 Aspartate Amino Transf (AST/SGOT) 13 Alanine Aminotransferase (ALT/SGPT) 26 Total Bilirubin 0.3 Sodium Level 134 Potassium Level 3.9 Chloride Level 98 Carbon Dioxide Level 26.1 Anion Gap 10 Estimat Glomerular Filtration Rate 91 Total Creatine Kinase 50 47 83 Troponin I LESS THAN 0.02 LESS THAN 0.02 LESS THAN 0.02 Result Diagram: 06/12/17 1656 06/12/17 1656 Imaging Last Impressions Chest X-Ray 06/12/17 1641 Signed Impressions: Service Date/Time: May 17:07 - CONCLUSION: Hypoaerated lungs without evidence of acute air space disease or significant congestion. Tobias Lilly MD Course EKG NSR, minimal st depression Caprini VTE Risk Assessment Caprini VTE Risk Assessment: Mod/High Risk (score >= 2) Caprini Risk Assessment Model Point Value = 1 Point Value = 2 Point Value = 3 Point Value = 5 Age 41-60 Minor surgery BMI > 25 kg/m2 Swollen legs Varicose veins or History of unexplained or recurrent spontaneous Oral contraceptives or hormone replacement Sepsis (< 1 month) Serious lung disease, including pneumonia (< 1 month) Abnormal pulmonary function Acute myocardial infarction Congestive heart failure (< 1 month) History of inflammatory bowel disease Medical patient at bed rest Age 61-74 Arthroscopic surgery Major open surgery (> 45 min) Laparoscopic surgery (> 45 min) Malignancy Confined to bed (> 72 hours) Immobilizing plaster cast Central venous access Age >= 75 History of VTE Family history of VTE Factor V Leiden Prothrombin [id number] Lupus anticoagulant Anticardiolipin antibodies Elevated serum homocysteine Heparin-induced thrombocytopenia Other congenital or acquired thrombophilia Stroke (< 1 month) Elective arthroplasty Hip, pelvis, or leg fracture Acute spinal cord injury (< 1 month) Prophylaxis Regimen Total Risk Factor Score Risk Level Prophylaxis Regimen 0-1 Low Early ambulation 2 Moderate Order ONE of the following: *Sequential Compression Device (SCD) *Heparin 5000 units SQ BID 3-4 Higher Order ONE of the following medications: *Heparin 5000 units SQ TID *Enoxaparin/Lovenox 40 mg SQ daily (WT < 150 kg, CrCl > 30 mL/min) *Enoxaparin/Lovenox 30 mg SQ daily (WT < 150 kg, CrCl > 10-29 mL/min) *Enoxaparin/Lovenox 30 mg SQ BID (WT < 150 kg, CrCl > 30 mL/min) AND/OR *Sequential Compression Device (SCD) 5 or more Highest Order ONE of the following medications: *Heparin 5000 units SQ TID (Preferred with Epidurals) *Enoxaparin/Lovenox 40 mg SQ daily (WT < 150 kg, CrCl > 30 mL/min) *Enoxaparin/Lovenox 30 mg SQ daily (WT < 150 kg, CrCl > 10-29 mL/min) *Enoxaparin/Lovenox 30 mg SQ BID (WT < 150 kg, CrCl > 30 mL/min) AND *Sequential Compression Device (SCD) Assessment and Plan Assessment and Plan #1 Chest pain-admitted to chest pain center. Ruled out with 3 sets EKGs, cardiac enzymes, and monitored overnight. Will be seen and evaluated by Dr. Polo Barker. Discussed likely will complete cardiac stress testing later this morning after being seen by administrative support manager. Patient agreeable to plan of care. #2 Hypertension-education provided in length importance of taking BP medications daily, discussed keeping a blood pressure log and not deviating from BP medication unless instructed by his PCP. Verbalized understanding. #3 Diabetes II-instructed to take diabetes medications also as directed, taking only metformin, reporting he was given an additition diabetic medication but afraid blood glucose would drop too low. After education provided, patient verbalized understanding on diabetic medications. Encouraged to continue daily activity. All other home medications reviewed. [address] Jun 13, 2017 09:45
[2017-06-13] MEDS ORDERED: METOPROLOL TARTRATE 50 MG TAB PO SCH (11:15)
[2017-06-13] MEDS ORDERED: CHOLECALCIFEROL (VIT D3) 1000 UNIT TAB PO SCH (11:15)
[2017-06-13] MEDS ORDERED: LOSARTAN 50 MG TAB PO SCH (11:15)
[2017-06-13] MEDS ORDERED: NON-FORMULARY DRUG (Omega-3 Fatty Acids (Omega 3 1000 mg) 1,000 MG) PO SCH (11:15)
[2017-06-13] MEDS ORDERED: CALCIUM CARBONATE 500 MG CHEWABLE TAB CHEW PRN (15:00)
[2017-06-13] MEDS ORDERED: REGADENOSON INJ 0.4 MG/5 ML SYR ONE (16:30)
--- NOTE | 2017-06-13 18:02 | RADRPT ---
EXAM DATE/TIME: 06/13/2017 16:31 [facility] COMPARISON: No previous studies available for comparison. INDICATIONS : Substernal chest pain radiating to let arm with dizziness. Angina. DOSE: 35 mCi Tc99m Myoview at stress. 11 mCi Tc99m Myoview at rest. 0.4 mg Lexiscan STRESS SYMPTOMS: Dyspnea and stomach pain. EJECTION FRACTION: 70% MEDICAL HISTORY : Hypertension. Diabetes mellitus type 2. Cardiomyopathy. SURGICAL HISTORY : Bilateral hip replacements, lumbar surgery and CRIMINAL JUSTICE PROFESSOR shunt. ENCOUNTER: Initial ACUITY: 1 day PAIN SCALE: 5/10 LOCATION: Substernal chest TECHNIQUE: The patient underwent pharmacologic stress with infusion of prescribed dose. Continuous ECG tracing was monitored during stress. Gated SPECT imaging was performed after stress and conventional SPECT i maging was performed at rest. The examination was performed on a SPECT/CT scanner, both attenuation and non-corrected datasets were reviewed. FINDINGS: DISTRIBUTION: The maximum perfused segment at stress is in the anterolateral wall. PERFUSION STUDY: The pattern of perfusion at stress is within normal limits. GATED STUDY: There is intact wall motion and thickening without hypokinetic or dyskinetic segments. CONCLUSION: 1. No reversibility to suggest ischemia. Normal exam. 2. Normal wall motion with ejection fraction 70%. RISK CATEGORY: Low (<1% Annual Mortality Rate) Darryl Laboy MD on June 13, 2017 at 17:59 Board Certified Radiologist. This report was verified electronically.
--- NOTE | 2017-06-13 18:18 | HHI.DCPOC ---
Discharge Care Plan Diagnosis: (1) Atypical chest pain Goals to Promote Your Health * To prevent worsening of your condition and complications * To maintain your health at the optimal level Directions to Meet Your Goals Take your medications as prescribed Follow your dietary instruction Follow activity as directed Keep your appointments as scheduled Take your immunizations and boosters as scheduled If your symptoms worsen call your PCP, if no PCP go to Urgent Care Center or Emergency Room Smoking is Dangerous to Your Health. Avoid second hand smoke Call the 24-hour hour crisis hotline for domestic abuse at [address] Jun 13, 2017 18:18
[2017-06-13] MEDS ORDERED: PRAVASTATIN SOD 40 MG TAB PO SCH (21:00)
--- NOTE | 2017-06-14 16:10 | TR ---
Date Performed: 06/13/2017 Time Performed: 16:51:37 DOCTOR: Polo Barker DRUG LIST: CLINICAL HISTORY: CHEST PAIN REASON FOR TEST: CHEST PAIN REASON FOR ENDING: OBSERVATION: CONCLUSION: Lexiscan stress test was performed under standard four minute protocol. Radionuclide was injected one minute prior to ending the test. No electrocardiographic abormalities were present to suggest ischemia. Nuclear imaging and interpretation are pending. COMMENTS:
== END 2017-06-14 00:36 | disposition home or self-care (01) ==
LOC: NEPC 16:30 → NEDA 19:07 → NEPHCDU 20:17
PROVIDERS: ADMIT Internal Medicine Cardiovascular Disease; ATTEND Internal Medicine Cardiovascular Disease
DX: R07.89 Other chest pain (principal); R53.1 Weakness; R20.0 Anesthesia of skin; R42 Dizziness and giddiness; I11.9 Hypertensive heart disease without heart failure; E11.9 Type 2 diabetes mellitus without complications; E78.00 Pure hypercholesterolemia, unspecified; I20.9 Angina pectoris, unspecified; R10.9 Unspecified abdominal pain; G91.2 (Idiopathic) normal pressure hydrocephalus; M19.90 Unspecified osteoarthritis, unspecified site; Z79.899 Other long term (current) drug therapy; Z79.82 Long term (current) use of aspirin; Z79.84 Long term (current) use of oral hypoglycemic drugs; Z87.891 Personal history of nicotine dependence; Z96.643 Presence of artificial hip joint, bilateral; Z98.2 Presence of cerebrospinal fluid drainage device; Z82.49 Family history of ischemic heart disease and other diseases of the circulatory system
CPT/HCPCS: 71010; 78452; 80053; 82550; 82948; 84484; 85025; 85610; 85730; 93005; 93017; 99285; A9502; G0378; J2785

== ENCOUNTER 2017-08-01 11:36 | Emergency (ER) | payer OTHER ==
[~2017-08-01] VITALS: Ht 208.3 cm; Wt 118.0 kg
[~2017-08-01 11:36] MED LIST changes: -BUTA1CAP PO; +LOSA50TA PO; -PROT40TA PO; -ZOFR4TAB3 SL
[2017-08-01 11:40] VITALS: BP 183/88; PULSE 92; RESP 20; TEMP 99.2; O2SAT 96
--- NOTE | 2017-08-01 11:55 | PD ---
HPI . Weakness Chief Complaint: Weakness Time Seen by Provider: 11:47 Travel History International Travel<30 days: No Contact w/Intl Traveler<30days: No History of Present Illness HPI Patient presents with the acute onset of feeling lightheaded, weak and shaky. Onset of symptoms was one hour ago. He states that he took his blood pressure at the onset of his symptoms and found the systolic pressure to be 225. He subsequently presented to us. He denies any pain. No modifying factors. He has had previous similar symptoms. He underwent a Lexiscan stress test about a month ago. It was negative as well as the myocardial perfusion scan. His ejection fraction was found to be 70%. PFSH Past Medical History Hx Anticoagulant Therapy: Yes (162mg asa) Arthritis: Yes Autoimmune Disease: No Blood Disorders: No Anxiety: No Depression: No Heart Rhythm Problems: No Cancer: No Cardiac Catheterization: No Cardiovascular Problems: Yes (htn, high cholestrol, chest pain, syncope) High Cholesterol: Yes Chemotherapy: Yes Chest Pain: No Congestive Heart Failure: No Cerebrovascular Accident: No Diabetes: Yes Diminished Hearing: No Endocrine: No Gastrointestinal Disorders: No Glaucoma: No Gout: Yes Genitourinary: No Hepatitis: No Hiatal Hernia: No Hypertension: Yes Immune Disorder: No Implanted Vascular Access Dvce: Yes Kidney Stones: No Musculoskeletal: No Neurologic: No Psychiatric: No Reproductive: No Respiratory: No Immunizations Current: Yes Migraines: No Pneumonia: Yes Radiation Therapy: No Renal Failure: No Seizures: No Sickle Cell Disease: No Thyroid Disease: No PNEUMOCCOCAL Vaccine (Year): 2009 Past Surgical History Abdominal Surgery: No AICD: No Arteriovenous Shunt: No Body Medical Devices: [employer]T Cardiac Surgery: No Coronary Artery Bypass Graft: No Ear Surgery: No Endocrine Surgery: No Eye Surgery: No Genitourinary Surgery: No Gynecologic Surgery: No Insulin Pump: No Joint Replacement: Yes (HIPS) Neurologic Surgery: Yes ([employer] SHUNT) Oral Surgery: No Pacemaker: No Thoracic Surgery: No Tonsillectomy: Yes Other Surgery: Yes ([employer] SHUNT) Social History Alcohol Use: No Tobacco Use: No Substance Use: No Allergies-Medications (Allergen,Severity, Reaction): Coded Allergies: No Known Allergies (Verified Allergy, Unknown, 08/01/17) Reported Meds & Prescriptions Reported Meds & Active Scripts Active Reported Magnesium Oxide 250 Mg Tab 250 Mg PO DAILY Glimepiride 1 Mg Tab 1 Mg PO DAILY Take with breakfast or first main meal Losartan (Losartan Potassium) 50 Mg Tab 50 Mg PO DAILY Metformin (Metformin HCl) 1,000 Mg Tab 1,000 Mg PO BID With meals Hm Cinnamon (Cinnamon) 500 Mg Cap 2,000 Mg PO DAILY Pravastatin 40 Mg Tab 40 Mg PO HS [place] 3 1000 mg ([place]-3 Fatty Acids) 1 Cap Cap 1,000 Mg PO DAILY Metoprolol Tartrate 50 Mg Tab 50 Mg PO BID Co Q-10 (Coenzyme Q10 (Ubidecarenone)) 100 Mg Cap 100 Mg PO DAILY Vitamin D3 (Cholecalciferol) 1,000 Unit Tab 2,000 Units PO DAILY Aspirin 325 Mg Tab 0.5 Tab PO DAILY Review of Systems Except as stated in HPI: all other systems reviewed are Neg General / Constitutional: No: Fever, Chills HENT: Positive: Lightheadedness, No: Headaches Cardiovascular: No: Chest Pain or Discomfort Respiratory: No: Shortness of Breath Gastrointestinal: No: Nausea, Vomiting, Diarrhea Neurologic: Positive: Weakness, Dizziness, Tremor Physical Exam Narrative GENERAL: Awake and alert. SKIN: warm/dry. HEAD: Normocephalic. Atraumatic. EYES: Pupils equal and round. No scleral icterus. No injection or drainage. ENT: No nasal bleeding or discharge. Mucous membranes pink and moist. NECK: Trachea midline. Full range of motion without pain.. CARDIOVASCULAR: Regular rate and rhythm. Heart sounds are normal. RESPIRATORY: No accessory muscle use. Clear to auscultation. Breath sounds equal bilaterally. He is noted to be inhaling before he completely exhales. GASTROINTESTINAL: Abdomen soft. Nontender. Bowel sounds present. Nondistended. Delay MUSCULOSKELETAL: No obvious deformities. NEUROLOGICAL: Awake and alert. No obvious cranial nerve deficits. Motor grossly within normal limits. Normal speech. PSYCHIATRIC: Anxious appearing. Appropriate mood and affect; insight and judgment normal. Data Data Last Documented VS Vital Signs Date Time Temp Pulse Resp B/P (MAP) Pulse Ox O2 Delivery O2 Flow Rate FiO2 08/01/17 11:59 97 08/01/17 11:57 92 20 Nasal Cannula 2.00 08/01/17 11:40 99.2 183/88 (119) Orders Orders Basic Metabolic Panel (Bmp) (08/01/17 11:50) Complete Blood Count With Diff (08/01/17 11:50) Troponin I (08/01/17 11:50) Ecg Monitoring (08/01/17 11:50) Iv Access Insert/Monitor (08/01/17 11:50) Oximetry (08/01/17 11:50) Sodium Chloride 0.9% Flush (Ns Flush) (08/01/17 12:00) Lorazepam Inj (Ativan Inj) (08/01/17 12:00) Labs Laboratory Tests Test 08/01/17 11:52 White Blood Count 10.4 TH/MM3 Red Blood Count 4.99 MIL/MM3 Hemoglobin 14.5 GM/DL Hematocrit 44.3 % Mean Corpuscular Volume 88.9 FL Mean Corpuscular Hemoglobin 29.0 PG Mean Corpuscular Hemoglobin Concent 32.6 % Red Cell Distribution Width 12.4 % Platelet Count 289 TH/MM3 Mean Platelet Volume 6.2 FL Neutrophils (%) (Auto) 59.5 % Lymphocytes (%) (Auto) 26.8 % Monocytes (%) (Auto) 8.2 % Eosinophils (%) (Auto) 3.0 % Basophils (%) (Auto) 2.5 % Neutrophils # (Auto) 6.1 TH/MM3 Lymphocytes # (Auto) 2.8 TH/MM3 Monocytes # (Auto) 0.9 TH/MM3 Eosinophils # (Auto) 0.3 TH/MM3 Basophils # (Auto) 0.3 TH/MM3 CBC Comment DIFF FINAL Differential Comment Blood Urea Nitrogen 14 MG/DL Creatinine 0.87 MG/DL Random Glucose 114 MG/DL Calcium Level 9.1 MG/DL Sodium Level 134 MEQ/L Potassium Level 4.1 MEQ/L Chloride Level 100 MEQ/L Carbon Dioxide Level 26.0 MEQ/L Anion Gap 8 MEQ/L Estimat Glomerular Filtration Rate 86 ML/MIN Troponin I LESS THAN 0.02 NG/ML MDM Medical Decision Making Medical Screen Exam Complete: Yes Emergency Medical Condition: Yes Medical Record Reviewed: Yes (Please see the HPI for pertinent review of old records) Interpretation(s) EKG shows a sinus rhythm with 93. His EKG is unchanged from EKG done in May. Differential Diagnosis Differential diagnosis of weakness includes but is not limited to infection, CVA , electrolyte disturbance, renal failure, hypoglycemia Narrative Course This patient presents with a chief complaint of feeling weak, dizzy and shaky. This is most likely anxiety related. Cardiac workup is in process. In the meantime, he will be treated with Ativan. CBC & BMP Diagram 08/01/17 11:52 Calcium Level 9.1 trop < 0.02 Patient feels better after Ativan. He is stable for discharge. His symptoms are most likely related to anxiety. Diagnosis Primary Impression: Dizziness Patient Instructions: Dizziness (ED), General Instructions Disposition: 01 DISCHARGE HOME Condition: Stable Yumiko Vega MD Aug 01, 2017 11:55
[2017-08-01 11:59] VITALS: O2SAT 97
[2017-08-01] MEDS ORDERED: SODIUM CHLORIDE 0.9% FLUSH 10 ML FLUSH IVF PRN (12:00)
[2017-08-01] MEDS ORDERED: LORazepam 2 MG/ML VIAL IV PUSH SCH (12:00)
[2017-08-01] MEDS ORDERED: GLIM1TAB PO (12:03)
[2017-08-01] MEDS ORDERED: MAGN250T11 PO (12:03)
[2017-08-01 12:04] LABS: AUTOMATED NEUTROPHIL # 6.1 TH/MM3 (1.8-7.7); BASOPHIL # 0.3 TH/MM3 (0-0.2); BASOPHIL % 2.5 % (0.0-2.0); EOSINOPHIL # 0.3 TH/MM3 (0-0.4); HEMATOCRIT 44.3 % (39.0-51.0); HEMOGLOBIN 14.5 GM/DL (13.0-17.0); LYMPH % 26.8 % (9.0-44.0); LYMPHOCYTE # 2.8 TH/MM3 (1.0-4.8); MEAN CELL VOLUME 88.9 FL (80.0-100.0); MEAN CORPUSCULAR HGB CONC 32.6 % (32.0-36.0); MEAN PLATELET VOLUME 6.2 FL (7.0-11.0); MONO % 8.2 % (0.0-8.0); MONOCYTE # 0.9 TH/MM3 (0-0.9); NEUT % 59.5 % (16.0-70.0); PLATELET COUNT 289 TH/MM3 (150-450); RED BLOOD COUNT 4.99 MIL/MM3 (4.50-5.90); RED CELL DISTRIBUTION WIDTH 12.4 % (11.6-17.2); WHITE BLOOD COUNT 10.4 TH/MM3 (4.0-11.0)
[2017-08-01 12:18] LABS: CHLORIDE 100 MEQ/L (98-107); SODIUM (NA) 134 MEQ/L (136-145)
[2017-08-01 12:20] LABS: CALCIUM 9.1 MG/DL (8.5-10.1)
[2017-08-01 12:21] LABS: BLOOD UREA NITROGEN 14 MG/DL (7-18); GLUCOSE,RANDOM 114 MG/DL (74-106)
[2017-08-01 12:24] LABS: CREATININE 0.87 MG/DL (0.60-1.30); GLOMERULAR FILTRATION RATE 86 ML/MIN (>89)
[2017-08-01 12:29] LABS: TROPONIN I LESS THAN 0.02 NG/ML (0.02-0.05)
[2017-08-01 12:55] VITALS: BP 159/79
[2017-08-01] MEDS ORDERED: LORazepam 2 MG TAB PO ONE (13:00)
--- NOTE | 2017-08-02 15:31 | EKG ---
Date Performed: 08/01/2017 Time Performed: 11:44:20 PTAGE: 72 years EKG: Sinus rhythm MODERATE INTRAVENTRICULAR CONDUCTION DELAY MODERATE ST DEPRESSION ABNORMAL ECG Compared to PREVIOUS TRACING , PVCs no longer present, otherwise no significant change. PREVIOUS TRAC IN06/12/2017 23.26 DOCTOR: Nkaul Sanchez Interpretating Date/Time 08/02/2017 15:29:52
== END 2017-08-01 13:06 | disposition home or self-care (01) ==
LOC: PHED 11:36
DX: R42 Dizziness and giddiness (principal); E11.9 Type 2 diabetes mellitus without complications; E78.00 Pure hypercholesterolemia, unspecified; I10 Essential (primary) hypertension; R94.31 Abnormal electrocardiogram [ECG] [EKG]; Z79.84 Long term (current) use of oral hypoglycemic drugs
CPT/HCPCS: 80048; 84484; 85025; 93005; 99284

== ENCOUNTER 2018-04-30 16:52 | Inpatient (IN) ==
[2018-04-30] MEDS ORDERED: Alteplase Drip 81 MG in Syringe/Bag 1 EACH IV.SIG ONE (17:05)
[2018-04-30] MEDS ORDERED: Alteplase Bolus 9 MG/9 ML Syringe IV.PUSH ONE (17:05)
--- NOTE | 2018-04-30 17:17 | CT ---
EXAM DATE: 04/30/2018 5:12 PM EDT AGE/SEX: 73 years / Male INDICATIONS: STROKE ALERT. Left sided weakness. Dizziness. CLINICAL DATA: This is the patient's initial encounter. Patient reports that signs and symptoms have been present for 1 day and indicates a pain score of 0/10. MEDICAL/SURGICAL HISTORY: None. None. RADIATION DOSE: 28.53 CTDI (mGy) COMPARISON: [facility], CT BRAIN W/O CONTRAST, 05/22/2017. . TECHNIQUE: CT of the head without contrast. Using automated exposure control and adjustment of the mA and/or kV according to patient size, radiation dose was kept as low as reasonably achievable to ob tain optimal diagnostic quality images. DICOM format image data is available electronically for revi ew and comparison. FINDINGS: Cerebrum: There is a right frontal ventriculostomy catheter with its tip near the foramen of Mckay on the left without change The ventricles are normal for age. No evidence of midline shift, mass lesio n, hemorrhage or acute infarction. No extraaxial fluid collections are seen. Posterior Fossa: The cerebellum and brainstem are intact. The 4th ventricle is midline. The cerebe llopontine angle is unremarkable. Extracranial: The visualized portion of the orbits is intact. Skull: The calvaria is intact. No evidence of skull fracture. CONCLUSION: 1. Unremarkable head CT status post right frontal ventriculostomy catheter. The ventricles are mildl y prominent, unchanged Report was called by [Dr. Ho to Dr. De La Garza at 1713 hours ] Electronically signed by: Collins Ho MD 04/30/2018 5:15 PM EDT
--- NOTE | 2018-04-30 17:19 | ED ---
HPI General Chief Complaint: Stroke Alert Stated Complaint: stroke alert/evac Time Seen by Provider: 04/30/18 16:59 Source: patient and EMS Mode of arrival: EMS Limitations: no limitations and physical limitation History of Present Illness HPI Narrative: 73-year-old male complains of slurring speech, left-sided facial weakness and left arm left leg weakness. Patient states that he has mild aching headache on the left side the head since this morning. Patient denies any visual change. Patient started having slurring speech and left sided weakness about an hour prior to arrival. EMS was called. Patient was transported to the emergency room for evaluation. Patient has history hypertension, diabetes, hyperlipidemia. Patient takes aspirin 162 mg daily. Patient took one today. Patient has history of elevated intracranial pressure status post shunt placement. Patient has been seen by Dr. Olvera, local neurologist. Patient denies any recent head injury. Onset (ago): minute(s) Timing confirmed by: spouse Location: Reports speech, left face, left arm and left leg History of same: No Severity: moderate Quality: Reports weak and constant Relieving factors: none Exacerbating factors: none Context: Reports sudden onset On Anticoagulants: No Associated symptoms: Reports denies other symptoms Treatments Prior to Arrival: Reports oxygen Related Data Allergies Allergy/AdvReac Type Severity Reaction Status Date / Time No Known Allergies Allergy Unknown Uncoded 08/01/17 11:43 Review of Systems ROS: all other systems reviewed are negative PMFSH Medical History Medical History Diabetes (Acute) HTN (hypertension) (Acute) High cholesterol (Acute) Social History Social History Smoking Status: Unknown if ever smoked How Often Do You Have a Drink Containing Alcohol: Unable to Obtain Recent Travel in [place] within the Last 8 Weeks: No Recent Out of Country Travel within the Last 8 Weeks: No Immunization History Tetanus Immunization: Unsure Exam Narrative Exam Narrative: GENERAL: Well-nourished, well-developed patient. SKIN: Focused skin assessment warm/dry. HEAD: Normocephalic. EYES: No scleral icterus. No injection or drainage. Pupils 1.5 mm equal reactive. NECK: Supple, trachea midline. No JVD or lymphadenopathy. CARDIOVASCULAR: Regular rate and rhythm without murmurs, gallops, or rubs. RESPIRATORY: Breath sounds equal bilaterally. No accessory muscle use. GASTROINTESTINAL: Abdomen soft, non-tender, nondistended. MUSCULOSKELETAL: No cyanosis, or edema. BACK: Nontender without obvious deformity. No CVA tenderness. Neurologic exam: Patient is awake and alert oriented x3. Patient with slurred speech. Patient has mild left-sided facial drooping and left sided weakness with a strength of 4/6. Different reflexes 2+ and equal. Negative Babinski. Visual field intact. Course Initial Documented Vital Signs Pulse Oximetry 98 04/30/18 16:58 Last Documented Vital Signs Pulse Oximetry 98 04/30/18 16:59 Medical Decision Making MDM Narrative Medical decision making narrative: 73-year-old male with slurred speech, left- sided facial weakness, left arm left leg weakness. Symptoms started 1 hour prior to arrival. CT scan of the brain did not show acute bleed. Patient is a candidate for TPA. I spoke with neurologist Dr. Doherty. Advised TPA. Medical Screen Exam Complete: Yes Emergency Medical Condition: Yes Differential Diagnosis Differential Diagnosis: Differential diagnosis including acute TIA, CVA. Imaging Data Radiologist's impression: Head CT 04/30/18 16:59 CONCLUSION: 1. Unremarkable head CT status post right frontal ventriculostomy catheter. The ventricles are mildly prominent, unchanged Report was called by [Dr. Ho to Dr. De La Garza at 1713 hours ] Discharge Plan Discharge Disposition Patient Disposition: 30 Still Patient Discharge Details Diagnosis: Acute cerebrovascular accident Physicians Team ED Provider: Man De La Garza Primary Care Provider: UNKNOWN, Other Providers: Terri Meeks Status ED Status: With Doctor
[2018-04-30] MEDS: Sod Chloride 0.9% Inj 1,000 ML IV.CONT SCH ×2 (17:29→19:30)
--- NOTE | 2018-04-30 17:35 | CT ---
EXAM DATE: 04/30/2018 5:25 PM EDT AGE/SEX: 73 years / Male INDICATIONS: STROKE ALERT. Left sided weakness. Dizziness. CLINICAL DATA: This is the patient's initial encounter. Patient reports that signs and symptoms have been present for 1 day and indicates a pain score of 0/10. MEDICAL/SURGICAL HISTORY: None. . Shunt. RADIATION DOSE: 28.59 CTDI (mGy) COMPARISON: No prior exams available for comparison. TECHNIQUE: Volumetric scanning was performed using a multi-row detector CT scanner during bolus infu river of 80 ml Visipaque 320 (iodixanol) nonionic water-soluble contrast as a cumulative dose for mul tiple exams. The data was post processed with a variety of visualization algorithms including full volume maximum intensity projection, multi-planar sliding thin slab reformation, curved planar reform ation, and surface rendering techniques. Using automated exposure control and adjustment of the mA a nd/or kV according to patient size, radiation dose was kept as low as reasonably achievable to obtain optimal diagnostic quality images. DICOM format image data is available electronically for review a nd comparison. FINDINGS: There is excellent visualization of the major intracranial arteries out to the second-order branch ve ssels. There is no evidence for aneurysm, vessel truncation or stenosis, and no evidence for vascula r malformation. The posterior cerebral vessels are filled by posterior communicating arteries. The patient is a very small basilar posterior system contributing flow to the cerebellum CONCLUSION: 1. No evidence of clot or stenosis within the intracranial cerebral vessels. 2. 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 There are bilateral posterior communicating arteries without evidence of a neurysm or stenosis. 3. The middle cerebral circulations appear to be symmetric. 4. These findings were relayed from Dr. Ho to Dr. Doherty at 5:31 PM EDT Electronically signed by: Collins Ho MD 04/30/2018 5:34 PM EDT
--- NOTE | 2018-04-30 17:37 | XR ---
EXAM DATE: 04/30/2018 5:34 PM EDT AGE/SEX: 73 years / Male INDICATIONS: Stroke Alert CLINICAL DATA: This is the patient's initial encounter. Patient reports that signs and symptoms have been present for 1 day and indicates a pain score of 0/10. MEDICAL/SURGICAL HISTORY: None. None. COMPARISON: [facility] [place], CHEST SINGLE AP, 06/12/2017. . FINDINGS: A single AP view of the chest demonstrates the lungs to be symmetrically aerated without evidence of mass, infiltrate or effusion. The cardiomediastinal contours are unremarkable. Osseous structures a re intact. The right hemidiaphragm is markedly elevated. There is a right-sided [employer] shunt tubing CONCLUSION: The right hemidiaphragm is elevated. There is right-sided ventriculostomy catheter tubing. Lungs are clear. Electronically signed by: Collins Ho MD 04/30/2018 5:35 PM EDT
--- NOTE | 2018-04-30 17:53 | CT ---
EXAM DATE: 04/30/2018 5:42 PM EDT AGE/SEX: 73 years / Male INDICATIONS: STROKE ALERT. Left sided weakness. Dizziness. CLINICAL DATA: This is the patient's initial encounter. Patient reports that signs and symptoms have been present for 1 day and indicates a pain score of 0/10. MEDICAL/SURGICAL HISTORY: None. . Shunt. RADIATION DOSE: 28.59 CTDI (mGy) COMPARISON: [facility] – [place], CTA CAROTID ARTERIES W 3D RECON, 09/26/2015. . TECHNIQUE: Volumetric scanning was performed using a multirow detector CT scanner during bolus infus ion of 80 ml Visipaque 320 (iodixanol) nonionic water-soluble contrast as a cumulative dose for mult iple exams. The data was postprocessed with a variety of visualization algorithms including full-vo lume maximum intensity projection, multiplanar sliding thin-slab reformation, curved-planar reformati on, and surface-rendering techniques. Using automated exposure control and adjustment of the mA and/ or kV according to patient size, radiation dose was kept as low as reasonably achievable to obtain op timal diagnostic quality images. DICOM format image data is available electronically for review and comparison. FINDINGS: Aortic Arch: There is a three-vessel origin of the great vessels from the aorta. No evidence of ost ial narrowing Right Carotid: The common carotid artery is intact. There is some mural thrombus in the posterior as pect at the anterolateral carotid origin without two-dimensional stenosis. The external carotid jonah ry is intact. Left Carotid: The common carotid artery is intact. The carotid bulb has a normal configuration with out ulceration or narrowing. The internal carotid artery lumen is smooth without stenosis. The exte rnal carotid artery is intact. Vertebrals: The vertebral arteries have a symmetric diameter. No stenotic lesions are seen. Percent stenosis is calculated using the diameter of the stenotic region over the diameter of the nor mal distal internal carotid artery. CONCLUSION: 1. There is minimal office or active disease of the origin of both internal carotid vessels. No sten osis is identified. 2. Dr. Ho related results to Dr. Doherty at 1731 hours Electronically signed by: Collins Ho MD 04/30/2018 5:52 PM EDT
[2018-04-30] MEDS ORDERED: Dextrose 50% in Water 50 ML Vial IV.PUSH PRN (18:17)
[2018-04-30] MEDS ORDERED: Potassium Chlor 40 mEq Premix 40 MEQ/100 ML PIGGYBACK IV.SIG PRN ×2 (18:17)
[2018-04-30] MEDS ORDERED: Sodium Phosphate Inj 30 MMOL in Sodium Chlor 0.9% Inj 250 ML IV.SIG PRN (18:17)
[2018-04-30] MEDS ORDERED: Bisacodyl 10 MG Supp RECTAL PRN (18:17)
[2018-04-30] MEDS ORDERED: Magnesium Sulfate Inj 4 GM in Sodium Chlor 0.9% Inj 92 ML IV.SIG PRN (18:17)
[2018-04-30] MEDS ORDERED: Potassium Phosphate 500 MG Soluble Tablet PO PRN ×2 (18:17)
[2018-04-30] MEDS ORDERED: Potassium Chlor 20 mEq Premix 20 MEQ/100 ML PIGGYBACK IV.SIG PRN ×2 (18:17)
[2018-04-30] MEDS ORDERED: Magnesium Oxide 400 MG Tablet PO PRN (18:17)
[2018-04-30] MEDS ORDERED: Potassium Phosphate Inj 30 MMOL in Sodium Chlor 0.9% Inj 250 ML IV.SIG PRN (18:17)
[2018-04-30] MEDS ORDERED: Potassium Chloride 25 MEQ Effervescent Tablet PO PRN (18:17)
[2018-04-30] MEDS ORDERED: Magnesium Sulfate Inj 2 GM in Sodium Chlor 0.9% Inj 96 ML IV.SIG PRN (18:17)
[2018-04-30] MEDS ORDERED: hydrALAZINE HCl Inj 20 MG/ML Vial IV.PUSH PRN (18:22)
[2018-04-30] MEDS ORDERED: Labetalol HCl Inj 100 MG/20 ML Vial IV.PUSH PRN (18:22)
--- NOTE | 2018-04-30 18:24 | P.HPCC ---
History of Present Illness Service: Critical Care Medicine Primary Care Physician: UNKNOWN Chief Complaint: weakness History of Present Illness: This is a 73yM with history of diabetes, HTN, prior LIFE COACH shunt who presents with new-onset weakness, dysarthria. last normal at 17:15. on admission, NIH stroke scale 6. Received IV TPA. head CT without acute bleed. denies any other complaints. specifically denies chest pain, sob, fever, chills, n/v/c/d/abd pain. denies cough. PSHx: lumbar spine surgery, LIFE COACH shunt Inpatient Certification: I certify that the inpatient services were ordered in accordance with Medicare regulations governing the order. This includes certification that hospital inpatient services are reasonable and necessary and in the case of services not specified as inpatient-only under 42 CFR 419.22(n), that they are appropriately provided as inpatient services in accordance to with the 2-midnight benchmark under 43 CFR 412.3(e) Estimated Total Length of Stay (Days): 7 Plans for Post Hospital Care: Not yet determined Review of Systems All other systems reviewed negative except as stated in HPI PMFSH - History History Provided By: Patient - Medical History Medical History: Medical History (Last Reviewed 04/30/18 @ 18:59 by Tanner Travis MD) Diabetes HTN (hypertension) High cholesterol - Social History I have reviewed the patient's Social History: Yes - Tobacco History Smoking Status: Unknown if ever smoked - Alcohol History How Often Do You Have a Drink Containing Alcohol: Unable to Obtain - Travel History Recent Travel in the [place] Within the Last 8 Weeks: No Recent Travel Out of the Country Within the Last 8 Weeks: No - Immunization History Tetanus Immunization: Unsure Medications and Allergies Active Medications: Active Medications Sodium Chloride (Ns Inj) 1,000 mls @ 70 mls/hr IV.CONT .[id number] AISLINN Last Admin: 04/30/18 17:29 Dose: 70 mls/hr Allergies Allergy/AdvReac Type Severity Reaction Status Date / Time No Known Allergies Allergy Unknown Uncoded 08/01/17 11:43 Home Medications Medication Instructions Recorded Confirmed Type amlodipine 5 mg PO DAILY 04/30/18 04/30/18 History aspirin 162.5 mg PO DAILY 04/30/18 04/30/18 History cholecalciferol (vitamin D3) 2,000 unit PO DAILY 04/30/18 04/30/18 History [Vitamin D3] fluticasone [Flonase Allergy 1 spray INTRANASAL BID PRN 04/30/18 04/30/18 History Relief] glimepiride 1 mg PO QAM 04/30/18 04/30/18 History ipratropium bromide 2 spray INTRANASAL TID PRN 04/30/18 04/30/18 History levocetirizine 5 mg PO QPM 04/30/18 04/30/18 History losartan 50 mg PO DAILY 04/30/18 04/30/18 History metformin 500 mg PO BID 04/30/18 04/30/18 History metoprolol tartrate 50 mg PO BID 04/30/18 04/30/18 History nystatin 1 applic TOPICAL BID 04/30/18 04/30/18 History pantoprazole 40 mg PO DAILY 04/30/18 04/30/18 History pravastatin 60 mg PO DAILY 04/30/18 04/30/18 History pravastatin 60 mg PO DAILY 04/30/18 04/30/18 History Results - Imaging Impressions Chest X-Ray 04/30/18 16:59 CONCLUSION: The right hemidiaphragm is elevated. There is right-sided ventriculostomy catheter tubing. Lungs are clear. Head CT 04/30/18 16:59 CONCLUSION: 1. Unremarkable head CT status post right frontal ventriculostomy catheter. The ventricles are mildly prominent, unchanged Report was called by [Dr. Ho to Dr. De La Garza at 1713 hours ] Head CTA 04/30/18 16:59 CONCLUSION: 1. No evidence of clot or stenosis within the intracranial cerebral vessels. 2. 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 There are bilateral posterior communicating arteries without evidence of aneurysm or stenosis. 3. The middle cerebral circulations appear to be symmetric. 4. These findings were relayed from Dr. Ho to Dr. Doherty at 5:31 PM EDT Neck CTA 04/30/18 16:59 CONCLUSION: 1. There is minimal office or active disease of the origin of both internal carotid vessels. No stenosis is identified. 2. Dr. Ho related results to Dr. Doherty at 1731 hours Exam Vital signs: Vital Signs 04/30/18 16:58 04/30/18 16:59 04/30/18 17:05 Pulse Rate 93 H Respiratory Rate Blood Pressure Pulse Oximetry 98 98 98 04/30/18 17:20 04/30/18 17:35 04/30/18 17:50 Pulse Rate 99 H 97 H 96 H Respiratory Rate 18 18 18 Blood Pressure 154/70 H 171/74 H 154/70 H Pulse Oximetry 98 99 98 04/30/18 17:55 04/30/18 18:05 Pulse Rate 95 H 98 H Respiratory Rate 18 18 Blood Pressure 144/61 H 138/63 Pulse Oximetry Intake & Output 04/29/18 04/30/18 04/30/18 18:59 06:59 18:59 Weight 122.1 kg Narrative: gen: middle-aged male, lying in bed. distress due to his neuro deficits. heent: nc. at. pupils are 3mm, equal, reactive, conjugate. mucous membranes moist. noted mild left-sided facial droop. neck: no jvd. trachea midline. chest: equal chest rise. room air. unlabored. cv: normal rate, regular rhythm. systolic blood pressure 177 mmHg on my eval. abd: soft, nontender, nondistended. no guarding. extr: distal pulses 2+. no edema. good cap refill. neuro: RASS 0. pupils as above. noted mild facial droop. JUANI 5/5 bilateral upper and lower extremities. sensation grossly intact. other than facial droop, remainder of CN 2-12 grossly intact. Caprini VTE Risk Assessment Caprini VTE Risk Assessment: Moderate/High Risk (score >= 2) Caprini Risk Assessment Model: Point Value = 1 Point Value = 2 Point Value = 3 Point Value = 5 Age 41-60 Minor surgery BMI > 25 kg/m2 Swollen legs Varicose veins or History of unexplained or recurrent spontaneous Oral contraceptives or hormone replacement Sepsis (< 1 month) Serious lung disease, including pneumonia (< 1 month) Abnormal pulmonary function Acute myocardial infarction Congestive heart failure (< 1 month) History of inflammatory bowel disease Medical patient at bed rest Age 61-74 Arthroscopic surgery Major open surgery (> 45 min) Laparoscopic surgery (> 45 min) Malignancy Confined to bed (> 72 hours) Immobilizing plaster cast Central venous access Age >= 75 History of VTE Family history of VTE Factor V Leiden Prothrombin [id number] Lupus anticoagulant Anticardiolipin antibodies Elevated serum homocysteine Heparin-induced thrombocytopenia Other congenital or acquired thrombophilia Stroke (< 1 month) Elective arthroplasty Hip, pelvis, or leg fracture Acute spinal cord injury (< 1 month) Prophylaxis Regimen: Total Risk Factor Score Risk Level Prophylaxis Regimen 0-1 Low Early ambulation 2 Moderate Order ONE of the following: *Sequential Compression Device (SCD) *Heparin 5000 units SQ BID 3-4 Higher Order ONE of the following medications: *Heparin 5000 units SQ TID *Enoxaparin/Lovenox 40 mg SQ daily (WT < 150 kg, CrCl > 30 mL/min) *Enoxaparin/Lovenox 30 mg SQ daily (WT < 150 kg, CrCl > 10-29 mL/min) *Enoxaparin/Lovenox 30 mg SQ BID (WT < 150 kg, CrCl > 30 mL/min) AND/OR *Sequential Compression Device (SCD) 5 or more Highest Order ONE of the following medications: *Heparin 5000 units SQ TID (Preferred with Epidurals) *Enoxaparin/Lovenox 40 mg SQ daily (WT < 150 kg, CrCl > 30 mL/min) *Enoxaparin/Lovenox 30 mg SQ daily (WT < 150 kg, CrCl > 10-29 mL/min) *Enoxaparin/Lovenox 30 mg SQ BID (WT < 150 kg, CrCl > 30 mL/min) AND *Sequential Compression Device (SCD) Assessment and Plan - Assessment and Plan Plan: Assessment: 73yM with new neuro deficits and acute CVA s/p systemic TPA. Admit to ICU for close monitoring. complete full stroke work-up. Acute CVA - s/p systemic TPA - MRI - 2d echo - swallow eval prior to anything PO - stroke navigator - lipids - a1c - ASA and phamacologic DVT prophylaxis after 24h post TPA. - neurology consultation - PT/OT/ST - NS mivf. - frequent neuro checks Hypertensive Emergency - goal sbp < 180 after TPA - permissive hypertension - add back anti-hypertensives as needed tomorrow - prn hydralazine, labetalol iv Diabetes - ssi - a1c advance diet after swallow eval SCDs hold pharmacologic dvt prophylaxis until 24h post TPA. Admit to ICU. Critically ill with new acute stroke. Critical care time: 34 minutes, exclusive of separately billable procedures.
[2018-04-30 18:52] LABS: Chol/HDL Ratio 3.59 Ratio; HDL Cholesterol 41.4 mg/dL (40.0-60.0)
--- NOTE | 2018-04-30 20:54 | MB ---
cc: Ayaan Doherty MD DATE: 04/30/2018 HISTORY OF PRESENT ILLNESS: A 73-year-old right-handed man with a history of hypertension, [id number] diabetes, hypercholesterolemia. He takes half of a 325 of aspirin a day. History of NPH with shunt placed about 4 years ago, diagnosed by Dr. Olvera, shunt put in by Dr. Hammond, which helped his shuffling and his memory quite a bit. He took a nap about 3 p.m. today and he woke up at 3 p.m., had shortness of breath, difficulty getting up off of the couch. He stood up and fell to the floor, felt lightheaded, dizzy, and then he developed some shortness of breath and nausea. Also, some left-sided weakness, numbness and some slurred speech. He came in as a stroke alert and we decided to give him tPA. He did in fact get tPA due to a NIH stroke scale of 6 and he has recovered nicely. REVIEW OF SYSTEMS: He has had some recent palpitations. He denies any chest pain. He denies any history of CABG, stent, angioplasty, atrial fibrillation, Coumadin, renal, hepatic or pulmonary disease, thyroid disease, lupus, ulcer, cancer, seizure, prior stroke. SOCIAL HISTORY: He is not a smoker or drinker. He lives with his . FAMILY HISTORY: Positive for cancer. Negative for seizure or stroke. MEDICATIONS AT HOME: He takes: 1. Half of a full aspirin. 2. Metformin. 3. Vitamin D. 4. Metoprolol. 5. Levocetirizine. 6. Protonix. 7. Amlodipine. 8. Pravastatin. 9. Fluconazole. 10. Losartan. 11. Ipratropium nasal spray. 12. Glyburide. 13. Statin. PHYSICAL EXAMINATION: VITAL SIGNS: Sinus rhythm, afebrile, 18, 141/79 to 171/74. NECK: There are no carotid bruits. HEART: Regular rhythm. I do not detect a murmur. NEUROLOGIC: Pupils are equal. Visual brizuela are full. Extraocular movements are intact without nystagmus. Face is symmetrical with normal sensation. Tongue is midline. No drift. Normal strength in the upper and lower extremities bilaterally. He is just minimally clumsy on fast movements on the left hand compared to the right. He has normal strength in upper and lower extremities bilaterally, otherwise. Toes downgoing bilaterally. DTRs are absent throughout. Pinprick is intact throughout. He is not ataxic on [id number]. Speech is fluent. He is not aphasic. He no longer has slurred speech. NIH stroke scale now of 1. LABORATORY DATA: His basic metabolic profile is essentially normal. Triglycerides 263. Creatinine normal. LDL is 55. Hematocrit and hemoglobin normal. He had a CTA of his neck done, no significant stenosis. He had a CTA of his head done, very small basilar artery but the PComs fill the posterior cerebral arteries, although looking at his CTA, he is actually right vertebral dominant which comes up and fills the basilar artery fairly well and I would not say it is an extremely small basilar artery, but his lead generation marketing manager come off the anterior circulation. CAT scan of the brain unremarkable except for the shunt. On review of those films, he does have some ventriculomegaly, some diffuse atrophy, what looks like probably some slight cortical versus cortical and subcortical hypodensity. It could be just artifact from the shunt versus some slight damage there from the shunt channel and appears old. IMPRESSION: Transient ischemic attack. We will check an MRI of the brain. We will need neurosurgery to adjust the shunt after that. We will check an echocardiogram, Holter, troponin and some additional blood work. For now, we will put him on Plavix 24 hours after the tPA was given. You could consider having cardiology see him with the palpitations. I defer to the med team on that. Check an echocardiogram and Holter. We will be following him with you in the hospital, but he looks well at this time. We will also check an electroencephalogram on him as the side of his symptoms in the brain is the same side as the shunt. MD ASH Zaragoza/chelsey , 07:47 PM , 07:57 PM
[2018-04-30 20:57] LABS: Hemoglobin A1c 6.3 % (4.3-6.0)
[2018-04-30] MEDS: Polyethylene Glycol 3350 17 GM Packet PO SCH (21:01)
[2018-04-30] MEDS: Senna/Docusate Sodium 8.6/50 MG Tablet PO SCH (21:02)
[2018-04-30] MEDS: Famotidine 20 MG Tablet PO SCH (21:02)
[2018-04-30 21:36] LABS: Bacteria,Urine Occasional /hpf; Bilirubin,Urine Negative (Negative); Clarity,Urine Clear (Clear); Color,Urine Yellow (Yellw/Straw); Glucose,Urine (UA) Negative (Negative); Leukocyte Esterase,Urine Trace (Negative); Nitrite,Urine Negative (Negative); Specific Gravity,Urine 1.046 (1.002-1.035)
[2018-04-30 21:45] LABS: Amphetamine Screen,Urine Neg (Neg); Barbiturate Screen,Urine Neg (Neg); Cannabinoid Screen,Urine Neg (Neg); Cocaine Screen,Urine Neg (Neg)
[2018-04-30 22:05] LABS: Opiate Screen,Urine Neg (Neg)
[2018-04-30 23:08] LABS: Thyroid Stimulating Hormone 3.68 uIU/mL (0.358-3.740)
[2018-04-30] MEDS: Insulin NovoLIN Regular Correctional Sugar Inj SQ SCH (23:58)
[2018-05-01] MEDS: Chlorhexidine Gluconate 2% 1 Pack (2 Cloths) TOPICAL SCH (03:22)
[2018-05-01] MEDS ORDERED: Chlorhexidine Gluconate 2% 1 Pack (2 Cloths) TOPICAL PRN (04:00)
--- NOTE | 2018-05-01 06:20 | P.PNVS ---
Subjective Subjective/Hospital Course: D/W Dr. Doherty. Consulted in error. Please let me know if I can be of any assistance. Objective Vital Signs / I&O: Vital Signs 04/30/18 16:58 04/30/18 16:59 04/30/18 17:05 Temperature Pulse Rate 93 H Respiratory Rate Blood Pressure Pulse Oximetry 98 98 98 04/30/18 17:20 04/30/18 17:35 04/30/18 17:50 Temperature Pulse Rate 99 H 97 H 96 H Respiratory Rate 18 18 18 Blood Pressure 154/70 H 171/74 H 154/70 H Pulse Oximetry 98 99 98 04/30/18 17:55 04/30/18 18:05 04/30/18 18:35 Temperature Pulse Rate 95 H 98 H 96 H Respiratory Rate 18 Blood Pressure 144/61 H 138/63 141/79 H Pulse Oximetry 04/30/18 20:20 04/30/18 21:00 04/30/18 22:00 Temperature 98.3 F Pulse Rate 84 94 H Respiratory Rate 23 24 Blood Pressure 173/87 H 146/83 H Pulse Oximetry 98 98 96 04/30/18 23:00 Temperature Pulse Rate 81 Respiratory Rate 22 Blood Pressure 126/62 Pulse Oximetry 98 Intake & Output 04/30/18 04/30/18 05/01/18 06:59 18:59 06:59 Intake Total 81 Balance 81 Weight 122.1 kg 120 kg Intake: IV Activase Drip 81 MG In Bag/ / 81 Syringe 1 EACH @ 81 mls/hr IV. SIG ONCE ONE Rx#:[id number] Other: Date of Last Bowel Movement 04/30/18 Weight On Admission 120 kg Laboratory Results - last 24 hr 04/30/18 04/30/18 04/30/18 16:53 16:53 16:53 POC Hgb (Calc) 13.9 POC Hct 41.0 ESR POC Sodium 139 POC Potassium 4.2 POC Chloride 100 L POC BUN 12 POC Creatinine 0.9 POC Glucose 177 H Hemoglobin A1c 6.3 H Triglycerides Cholesterol LDL Cholesterol, Calc HDL Cholesterol Cholesterol/HDL Ratio Vitamin B12 TSH Urine Color Urine Clarity Urine pH Ur Specific [place] Urine Protein Urine Glucose (UA) Urine Ketones Urine Occult Blood Urine Nitrate Urine Bilirubin Urine Urobilinogen Ur Leukocyte Esterase Urine RBC Urine WBC Urine Bacteria Micro UA Comment Ur Microscopic Review Urine Culture Comments Nasal Screen MRSA (PCR) Urine Opiates Screen Ur Barbiturates Screen Ur Amphetamines Screen U Benzodiazepines Scrn Urine Cocaine Screen U Cannabinoids Screen Blood Type O Negative Blood Type Recheck Not needed Antibody Screen Negative 04/30/18 04/30/18 04/30/18 16:53 16:53 16:53 POC Hgb (Calc) POC Hct ESR 15 POC Sodium POC Potassium POC Chloride POC BUN POC Creatinine POC Glucose Hemoglobin A1c Triglycerides 263 H Cholesterol 149 LDL Cholesterol, Calc 55 HDL Cholesterol 41.4 Cholesterol/HDL Ratio 3.59 Vitamin B12 904 TSH 3.680 Urine Color Urine Clarity Urine pH Ur Specific [place] Urine Protein Urine Glucose (UA) Urine Ketones Urine Occult Blood Urine Nitrate Urine Bilirubin Urine Urobilinogen Ur Leukocyte Esterase Urine RBC Urine WBC Urine Bacteria Micro UA Comment Ur Microscopic Review Urine Culture Comments Nasal Screen MRSA (PCR) Urine Opiates Screen Ur Barbiturates Screen Ur Amphetamines Screen U Benzodiazepines Scrn Urine Cocaine Screen U Cannabinoids Screen Blood Type Blood Type Recheck Antibody Screen 04/30/18 04/30/18 04/30/18 20:00 20:00 21:00 POC Hgb (Calc) POC Hct ESR POC Sodium POC Potassium POC Chloride POC BUN POC Creatinine POC Glucose Hemoglobin A1c Triglycerides Cholesterol LDL Cholesterol, Calc HDL Cholesterol Cholesterol/HDL Ratio Vitamin B12 TSH Urine Color Yellow Urine Clarity Clear Urine pH 6.0 Ur Specific [place] 1.046 H Urine Protein Negative Urine Glucose (UA) Negative Urine Ketones Negative Urine Occult Blood Moderate H Urine Nitrate Negative Urine Bilirubin Negative Urine Urobilinogen Less than 2 Ur Leukocyte Esterase Trace H Urine RBC 7 H Urine WBC 12 H Urine Bacteria Occasional H Micro UA Comment Culture indicated Ur Microscopic Review Not Reportable Urine Culture Comments Culture indicated Nasal Screen MRSA (PCR) Not detected Urine Opiates Screen Neg Ur Barbiturates Screen Neg Ur Amphetamines Screen Neg U Benzodiazepines Scrn Neg Urine Cocaine Screen Neg U Cannabinoids Screen Neg Blood Type Blood Type Recheck Antibody Screen Impressions Chest X-Ray 04/30/18 16:59 CONCLUSION: The right hemidiaphragm is elevated. There is right-sided ventriculostomy catheter tubing. Lungs are clear. Head CT 04/30/18 16:59 CONCLUSION: 1. Unremarkable head CT status post right frontal ventriculostomy catheter. The ventricles are mildly prominent, unchanged Report was called by [Dr. Ho to Dr. De La Garza at 1713 hours ] Head CTA 04/30/18 16:59 CONCLUSION: 1. No evidence of clot or stenosis within the intracranial cerebral vessels. 2. 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 There are bilateral posterior communicating arteries without evidence of aneurysm or stenosis. 3. The middle cerebral circulations appear to be symmetric. 4. These findings were relayed from Dr. Ho to Dr. Doherty at 5:31 PM EDT Neck CTA 04/30/18 16:59 CONCLUSION: 1. There is minimal office or active disease of the origin of both internal carotid vessels. No stenosis is identified. 2. Dr. Ho related results to Dr. Doherty at 1731 hours
[2018-05-01] MEDS: Insulin NovoLIN Regular Correctional Sugar Inj SQ SCH ×3 (06:56→18:46)
[2018-05-01] MEDS: Sod Chloride 0.9% Inj 1,000 ML IV.CONT SCH ×3 (06:56→20:09)
--- NOTE | 2018-05-01 08:03 | P.PNNEU ---
Subjective Subjective Comments: sr Active Medications: Active Medications Albuterol (Duoneb Neb (Prn)) 1 ampul NEB Q2HR NEB PRN PRN Reason: WHEEZING Atorvastatin Calcium (Lipitor) 80 mg PO DAILY [facility] Bisacodyl (Dulcolax Supp) 10 mg RECTAL DAILY PRN PRN Reason: if no BM in last 24h Chlorhexidine Gluconate (Chlorhexidine 2% Cloth) 3 pack TOPICAL DAILY@0400 [facility] Stop: 05/06/18 03:59 Last Admin: 05/01/18 03:22 Dose: 3 pack Chlorhexidine Gluconate (Chlorhexidine 2% Cloth) 3 pack TOPICAL DAILY@0400 PRN PRN Reason: Extra cloth needed Stop: 05/06/18 03:59 Dextrose (D50w Vial) 50 ml IV.PUSH UNSCH PRN PRN Reason: PER HYPOGLYCEMIA PROTOCOL Famotidine (Pepcid) 20 mg PO BID [facility] Last Admin: 04/30/18 21:02 Dose: Not Given Glucagon (Glucagon Inj) 1 mg OTHER PRN PRN PRN Reason: for Hypoglycemia Protocol Hydralazine HCl (Apresoline Inj) 10 mg IV.PUSH Q30M PRN PRN Reason: sbp > 180 Sodium Chloride (Ns Inj) 1,000 mls @ 70 mls/hr IV.CONT .[id number] [facility] Last Admin: 04/30/18 17:29 Dose: 70 mls/hr Magnesium Sulfate 4 gm/ Sodium (Chloride) 100 mls @ 50 mls/hr IV.SIG UNSCH PRN PRN Reason: For Magnesium 0.9 - 1.1 mg/dL Magnesium Sulfate 2 gm/ Sodium (Chloride) 100 mls @ 50 mls/hr IV.SIG UNSCH PRN PRN Reason: For Magnesium 1.2 - 1.6 mg/dL Sodium Chloride (Ns Inj) 1,000 mls @ 84 mls/hr IV.CONT .[id number] [facility] Last Admin: 05/01/18 06:56 Dose: 84 mls/hr Potassium Chloride (Kcl 40 Meq Premix Inj) 40 meq in 100 mls @ 25 mls/hr IV.SIG Q2H PRN PRN Reason: For Potassium 2.8 - 3.2 mEq/L Potassium Chloride (Kcl 20 Meq Premix Inj) 20 meq in 100 mls @ 50 mls/hr IV.SIG Q2H PRN PRN Reason: For Potassium 3.3 - 3.5 mEq/L Potassium Chloride (Kcl 40 Meq Premix Inj) 40 meq in 100 mls @ 25 mls/hr IV.SIG UNSCH PRN PRN Reason: For Potassium 3.3 - 3.5 mEq/L Potassium Chloride (Kcl 20 Meq Premix Inj) 20 meq in 100 mls @ 50 mls/hr IV.SIG Q2H PRN PRN Reason: For Potassium 2.8 - 3.2 mEq/L Potassium Phosphate 30 mmol/ (Sodium Chloride) 260 mls @ 42 mls/hr IV.SIG UNSCH PRN PRN Reason: SEE LABEL COMMENTS Sodium Phosphate 30 mmol/ (Sodium Chloride) 260 mls @ 42 mls/hr IV.SIG UNSCH PRN PRN Reason: For Phosphorus < 2.5 mg/dL Insulin Human Regular (Novolin R Correctional Sugar Inj) 0 units SQ Q6HR [facility]; Protocol Last Admin: 05/01/18 06:56 Dose: Not Given Labetalol HCl (Trandate Inj) 10 mg IV.PUSH Q30M PRN PRN Reason: sbp > 180 Lactulose (Lactulose Liq) 30 ml PO BID [facility] Last Admin: 04/30/18 21:01 Dose: Not Given Magnesium Oxide (Mag-Ox) 800 mg PO UNSCH PRN PRN Reason: For Magnesium 1.2 - 1.6 mg/dL Ondansetron HCl (Zofran Inj) 4 mg IV.PUSH Q6H PRN PRN Reason: NAUSEA OR VOMITING Polyethylene Glycol (Miralax) 17 gm PO BID [facility] Last Admin: 04/30/18 21:01 Dose: Not Given Potassium Bicarb/Potassium Chloride (K-Lyte Cl Eff) 50 meq PO UNSCH PRN PRN Reason: For Potassium 3.3 - 3.5 mEq/L Potassium Phosphate (K-Phos Original) 2,000 mg PO Q4H PRN PRN Reason: Phosphorus Less Than 2.5 mg/dL Potassium Phosphate (K-Phos Original) 2,000 mg PO UNSCH PRN PRN Reason: SEE LABEL COMMENTS Senna/Docusate Sodium (Deb-Colace) 1 tab PO BID [facility] Last Admin: 04/30/18 21:02 Dose: Not Given Sodium Chloride (Ns Flush) 2 ml IV.FLUSH UNSCH PRN PRN Reason: FLUSH AFTER USING IV ACCESS Allergies/Adverse Reactions: Allergies Allergy/AdvReac Type Severity Reaction Status Date / Time No Known Allergies Allergy Unknown Uncoded 08/01/17 11:43 Physical Exam Vital signs: Vital Signs 04/30/18 16:58 04/30/18 16:59 04/30/18 17:05 Temperature Pulse Rate 93 H Respiratory Rate Blood Pressure Pulse Oximetry 98 98 98 04/30/18 17:20 04/30/18 17:35 04/30/18 17:50 Temperature Pulse Rate 99 H 97 H 96 H Respiratory Rate 18 18 Blood Pressure 154/70 H 171/74 H 154/70 H Pulse Oximetry 98 99 98 04/30/18 17:55 04/30/18 18:05 04/30/18 18:35 Temperature Pulse Rate 95 H 98 H 96 H Respiratory Rate 18 Blood Pressure 144/61 H 138/63 141/79 H Pulse Oximetry 04/30/18 20:20 04/30/18 21:00 04/30/18 22:00 Temperature 98.3 F Pulse Rate 84 94 H Respiratory Rate 23 24 Blood Pressure 173/87 H 146/83 H Pulse Oximetry 98 98 96 04/30/18 23:00 05/01/18 00:00 05/01/18 03:36 Temperature 98.4 F Pulse Rate 81 82 Respiratory Rate 22 23 16 Blood Pressure 126/62 132/66 Pulse Oximetry 98 98 05/01/18 04:00 05/01/18 07:51 Temperature 98.7 F Pulse Rate 76 Respiratory Rate 22 Blood Pressure 148/73 H Pulse Oximetry 97 98 Intake & Output 04/30/18 05/01/18 05/01/18 18:59 06:59 18:59 Intake Total 700 / 700 Output Total 900 / 900 Balance -200 / -200 Weight 122.1 kg 120.5 kg Intake: IV 700 / 700 NS Inj 1,000 ML @ 84 mls/hr IV. 600 / 600 CONT .[id number] [facility] Rx#:[id number] Ofirmev Inj 1,000 mg In 100 ml 100 / 100 @ 400 mls/hr IV.SIG ONCE ONE Rx #:[id number] Activase Drip 81 MG In Bag/ Syringe 1 EACH @ 81 mls/hr IV. SIG ONCE ONE Rx#:[id number] Output: Urine 900 / 900 Other: # Voids 6 Date of Last Bowel Movement 04/30/18 Weight On Admission 120 kg Narrative: awake alert vff face sym 5/5t/o Objective Laboratory Results - last 24 hr 04/30/18 04/30/18 04/30/18 16:53 16:53 16:53 POC Hgb (Calc) 13.9 POC Hct 41.0 ESR POC Sodium 139 POC Potassium 4.2 POC Chloride 100 L POC BUN 12 POC Creatinine 0.9 POC Glucose 177 H Hemoglobin A1c 6.3 H Triglycerides Cholesterol LDL Cholesterol, Calc HDL Cholesterol Cholesterol/HDL Ratio Vitamin B12 TSH Urine Color Urine Clarity Urine pH Ur Specific [place] Urine Protein Urine Glucose (UA) Urine Ketones Urine Occult Blood Urine Nitrate Urine Bilirubin Urine Urobilinogen Ur Leukocyte Esterase Urine RBC Urine WBC Urine Bacteria Micro UA Comment Ur Microscopic Review Urine Culture Comments Nasal Screen MRSA (PCR) Urine Opiates Screen Ur Barbiturates Screen Ur Amphetamines Screen U Benzodiazepines Scrn Urine Cocaine Screen U Cannabinoids Screen Blood Type O Negative Blood Type Recheck Not needed Antibody Screen Negative 04/30/18 04/30/18 04/30/18 16:53 16:53 16:53 POC Hgb (Calc) POC Hct ESR 15 POC Sodium POC Potassium POC Chloride POC BUN POC Creatinine POC Glucose Hemoglobin A1c Triglycerides 263 H Cholesterol 149 LDL Cholesterol, Calc 55 HDL Cholesterol 41.4 Cholesterol/HDL Ratio 3.59 Vitamin B12 904 TSH 3.680 Urine Color Urine Clarity Urine pH Ur Specific [place] Urine Protein Urine Glucose (UA) Urine Ketones Urine Occult Blood Urine Nitrate Urine Bilirubin Urine Urobilinogen Ur Leukocyte Esterase Urine RBC Urine WBC Urine Bacteria Micro UA Comment Ur Microscopic Review Urine Culture Comments Nasal Screen MRSA (PCR) Urine Opiates Screen Ur Barbiturates Screen Ur Amphetamines Screen U Benzodiazepines Scrn Urine Cocaine Screen U Cannabinoids Screen Blood Type Blood Type Recheck Antibody Screen 04/30/18 04/30/18 04/30/18 20:00 20:00 21:00 POC Hgb (Calc) POC Hct ESR POC Sodium POC Potassium POC Chloride POC BUN POC Creatinine POC Glucose Hemoglobin A1c Triglycerides Cholesterol LDL Cholesterol, Calc HDL Cholesterol Cholesterol/HDL Ratio Vitamin B12 TSH Urine Color Yellow Urine Clarity Clear Urine pH 6.0 Ur Specific [place] 1.046 H Urine Protein Negative Urine Glucose (UA) Negative Urine Ketones Negative Urine Occult Blood Moderate H Urine Nitrate Negative Urine Bilirubin Negative Urine Urobilinogen Less than 2 Ur Leukocyte Esterase Trace H Urine RBC 7 H Urine WBC 12 H Urine Bacteria Occasional H Micro UA Comment Culture indicated Ur Microscopic Review Not Reportable Urine Culture Comments Culture indicated Nasal Screen MRSA (PCR) Not detected Urine Opiates Screen Neg Ur Barbiturates Screen Neg Ur Amphetamines Screen Neg U Benzodiazepines Scrn Neg Urine Cocaine Screen Neg U Cannabinoids Screen Neg Blood Type Blood Type Recheck Antibody Screen Review/Management - Review/Management Plan: iomp ct and cta x2 neg 24 hour after tpa give plavix 75 a day fu echo and holter and eeg oob ok fu trop ldl ok if his echo neg and mri ok can dc on plavix mri pend needs [facility] to adjust shunt after
[2018-05-01] MEDS: Polyethylene Glycol 3350 17 GM Packet PO SCH ×2 (09:00→20:10)
--- NOTE | 2018-05-01 10:48 | P.PNCC ---
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 last normal at 17:15. on admission, NIH stroke scale 6. Received IV TPA. head CT without acute bleed. denies any other complaints. specifically denies chest pain, sob, fever, chills, n/v/c/d/abd pain. denies cough. SUBJ 05/01: Status post TPA good neurological recovery. NIH stroke scale 0 now. No obvious focal deficits. Objective Vital Signs / I&O: Vital Signs 04/30/18 16:58 04/30/18 16:59 04/30/18 17:05 Temperature Pulse Rate 93 H Respiratory Rate Blood Pressure Pulse Oximetry 98 98 98 04/30/18 17:20 04/30/18 17:35 04/30/18 17:50 Temperature Pulse Rate 99 H 97 H 96 H Respiratory Rate 18 18 18 Blood Pressure 154/70 H 171/74 H 154/70 H Pulse Oximetry 98 99 98 04/30/18 17:55 04/30/18 18:05 04/30/18 18:35 Temperature Pulse Rate 95 H 98 H 96 H Respiratory Rate 18 18 18 Blood Pressure 144/61 H 138/63 141/79 H Pulse Oximetry 04/30/18 20:20 04/30/18 21:00 04/30/18 22:00 Temperature 98.3 F Pulse Rate 84 94 H Respiratory Rate 23 24 Blood Pressure 173/87 H 146/83 H Pulse Oximetry 98 98 96 04/30/18 23:00 05/01/18 00:00 05/01/18 03:36 Temperature 98.4 F Pulse Rate 81 82 Respiratory Rate 22 23 16 Blood Pressure 126/62 132/66 Pulse Oximetry 98 98 05/01/18 04:00 05/01/18 07:51 Temperature 98.7 F Pulse Rate 76 Respiratory Rate 22 Blood Pressure 148/73 H Pulse Oximetry 97 98 Intake & Output 04/30/18 05/01/18 05/01/18 18:59 06:59 18:59 Intake Total 700 / 700 Output Total 900 / 900 Balance -200 / -200 Weight 122.1 kg 120.5 kg Intake: IV 700 / 700 NS Inj 1,000 ML @ 84 mls/hr IV. 600 / 600 CONT .[id number] [facility] Rx#:[id number] Ofirmev Inj 1,000 mg In 100 ml 100 / 100 @ 400 mls/hr IV.SIG ONCE ONE Rx #:[id number] Activase Drip 81 MG In Bag/ / Syringe 1 EACH @ 81 mls/hr IV. SIG ONCE ONE Rx#:[id number] Output: Urine 900 / 900 Other: # Voids 6 Date of Last Bowel Movement 04/30/18 Weight On Admission 120 kg Objective Remarks: gen: 73 year old male, lying in bed. distress due to his neuro deficits. heent: nc. at. pupils are 3mm, equal, reactive, conjugate. mucous membranes moist. no facial droop. neck: no jvd. trachea midline. chest: equal chest rise. room air. unlabored. cv: normal rate, regular rhythm. abd: soft, nontender, nondistended. no guarding. extr: distal pulses 2+. no edema. good cap refill. neuro: RASS 0. pupils as above. no facial droop. JUANI 5/5 bilateral upper and lower extremities. sensation grossly intact. other than facial droop, remainder of CN 2-12 grossly intact. Assessment and Plan - Assessment and Plan Plan: Assessment: 73yM with new neuro deficits and acute CVA s/p systemic TPA. Admit to ICU for close monitoring. complete full stroke work-up. 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 D/W Dr. Vega - 2d echo pending - swallow eval prior to anything PO - stroke navigator - Atorvastatin 80 mg nightly - a1c 6.3 - ASA, Plavix after 24 hours and phamacologic DVT prophylaxis after 24h post TPA. - neurology Dr. Doherty - PT/OT/ST, NS mivf. - frequent neuro checks Hypertensive Emergency - goal sbp < 180 after TPA - permissive hypertension - add back anti-hypertensives as needed - prn hydralazine, labetalol iv Diabetes - ssi - a1c 6.3 -Prediabetic education advance diet after swallow eval SCDs hold pharmacologic dvt prophylaxis until 24h post TPA. Continue ICU Level 3 Hospitalist consulted to assume care 05/02/2018
[2018-05-01] MEDS: Famotidine 20 MG Tablet PO SCH ×2 (11:02→20:10)
[2018-05-01] MEDS: Senna/Docusate Sodium 8.6/50 MG Tablet PO SCH ×2 (11:02→20:10)
--- NOTE | 2018-05-01 11:43 | P.CONNS ---
History of Present Illness Primary Care Provider: UNKNOWN Chief Complaint: weakness History of Present Illness: 73yoM s/p Right VICE INVESTIGATOR Shunt by Dr. Hammond ~3-4 years ago for hydrocephalus with Codman programmable valve, due for MRI today to evaluate transient left arm weakness and facial slurring, and valve reprogramming. Symptoms have completely resolved by this point. I surmise from the notes that he was given tPA ([facility]iera). He has an outside neurologist in [facility]. He is neurologically at his baseline and gives me the history himself. [facility] - History History Provided By: Patient - Medical History Medical History: Medical History (Last Reviewed 04/30/18 @ 18:59 by Tanner Travis MD) Diabetes HTN (hypertension) High cholesterol - Tobacco History Second Hand Smoke Exposure: No Tobacco Use In Past 30 Days: No Smoking Status: Former smoker Tobacco Type: Cigarettes - Alcohol History How Often Do You Have a Drink Containing Alcohol: Never - Substance Use History Substance History: No History of Abuse - Travel History Recent Travel in the [place] Within the Last 8 Weeks: No Recent Travel Out of the Country Within the Last 8 Weeks: No - Immunization History Tetanus Immunization: <5 Years Hx Influenza Vaccine This Season: No Medications and Allergies Active Medications: Active Medications Albuterol (Duoneb Neb (Prn)) 1 ampul NEB Q2HR NEB PRN PRN Reason: WHEEZING Atorvastatin Calcium (Lipitor) 80 mg PO DAILY [facility] Last Admin: 05/01/18 11:02 Dose: 80 mg Bisacodyl (Dulcolax Supp) 10 mg RECTAL DAILY PRN PRN Reason: if no BM in last 24h Chlorhexidine Gluconate (Chlorhexidine 2% Cloth) 3 pack TOPICAL DAILY@0400 [facility] Stop: 05/06/18 03:59 Last Admin: 05/01/18 03:22 Dose: 3 pack Chlorhexidine Gluconate (Chlorhexidine 2% Cloth) 3 pack TOPICAL DAILY@0400 PRN PRN Reason: Extra cloth needed Stop: 05/06/18 03:59 Dextrose (D50w Vial) 50 ml IV.PUSH UNSCH PRN PRN Reason: PER HYPOGLYCEMIA PROTOCOL Famotidine (Pepcid) 20 mg PO BID [facility] Last Admin: 05/01/18 11:02 Dose: 20 mg Glucagon (Glucagon Inj) 1 mg OTHER PRN PRN PRN Reason: for Hypoglycemia Protocol Hydralazine HCl (Apresoline Inj) 10 mg IV.PUSH Q30M PRN PRN Reason: sbp > 180 Magnesium Sulfate 4 gm/ Sodium (Chloride) 100 mls @ 50 mls/hr IV.SIG UNSCH PRN PRN Reason: For Magnesium 0.9 - 1.1 mg/dL Magnesium Sulfate 2 gm/ Sodium (Chloride) 100 mls @ 50 mls/hr IV.SIG UNSCH PRN PRN Reason: For Magnesium 1.2 - 1.6 mg/dL Sodium Chloride (Ns Inj) 1,000 mls @ 84 mls/hr IV.CONT .[id number] [facility] Last Admin: 05/01/18 06:56 Dose: 84 mls/hr Potassium Chloride (Kcl 40 Meq Premix Inj) 40 meq in 100 mls @ 25 mls/hr IV.SIG Q2H PRN PRN Reason: For Potassium 2.8 - 3.2 mEq/L Potassium Chloride (Kcl 20 Meq Premix Inj) 20 meq in 100 mls @ 50 mls/hr IV.SIG Q2H PRN PRN Reason: For Potassium 3.3 - 3.5 mEq/L Potassium Chloride (Kcl 40 Meq Premix Inj) 40 meq in 100 mls @ 25 mls/hr IV.SIG UNSCH PRN PRN Reason: For Potassium 3.3 - 3.5 mEq/L Potassium Chloride (Kcl 20 Meq Premix Inj) 20 meq in 100 mls @ 50 mls/hr IV.SIG Q2H PRN PRN Reason: For Potassium 2.8 - 3.2 mEq/L Potassium Phosphate 30 mmol/ (Sodium Chloride) 260 mls @ 42 mls/hr IV.SIG UNSCH PRN PRN Reason: SEE LABEL COMMENTS Sodium Phosphate 30 mmol/ (Sodium Chloride) 260 mls @ 42 mls/hr IV.SIG UNSCH PRN PRN Reason: For Phosphorus < 2.5 mg/dL Insulin Human Regular (Novolin R Correctional Sugar Inj) 0 units SQ Q6HR [facility]; Protocol Last Admin: 05/01/18 06:56 Dose: Not Given Labetalol HCl (Trandate Inj) 10 mg IV.PUSH Q30M PRN PRN Reason: sbp > 180 Lactulose (Lactulose Liq) 30 ml PO BID [facility] Last Admin: 11/01/18 21:01 Dose: Not Given Magnesium Oxide (Mag-Ox) 800 mg PO UNSCH PRN PRN Reason: For Magnesium 1.2 - 1.6 mg/dL Ondansetron HCl (Zofran Inj) 4 mg IV.PUSH Q6H PRN PRN Reason: NAUSEA OR VOMITING Polyethylene Glycol (Miralax) 17 gm PO BID [facility] Last Admin: 04/30/18 21:01 Dose: Not Given Potassium Bicarb/Potassium Chloride (K-Lyte Cl Eff) 50 meq PO UNSCH PRN PRN Reason: For Potassium 3.3 - 3.5 mEq/L Potassium Phosphate (K-Phos Original) 2,000 mg PO Q4H PRN PRN Reason: Phosphorus Less Than 2.5 mg/dL Potassium Phosphate (K-Phos Original) 2,000 mg PO UNSCH PRN PRN Reason: SEE LABEL COMMENTS Senna/Docusate Sodium (Deb-Colace) 1 tab PO BID [facility] Last Admin: 05/01/18 11:02 Dose: 1 tab Sodium Chloride (Ns Flush) 2 ml IV.FLUSH UNSCH PRN PRN Reason: FLUSH AFTER USING IV ACCESS Allergies Allergy/AdvReac Type Severity Reaction Status Date / Time No Known Allergies Allergy Unknown Uncoded 08/01/17 11:43 Home Medications Medication Instructions Recorded Confirmed Type amlodipine 5 mg PO DAILY 04/30/18 04/30/18 History aspirin 162.5 mg PO DAILY 04/30/18 04/30/18 History cholecalciferol (vitamin D3) 2,000 unit PO DAILY 04/30/18 04/30/18 History [Vitamin D3] fluticasone [Flonase Allergy 1 spray INTRANASAL BID PRN 04/30/18 04/30/18 History Relief] glimepiride 1 mg PO QAM 04/30/18 04/30/18 History ipratropium bromide 2 spray INTRANASAL TID PRN 04/30/18 04/30/18 History levocetirizine 5 mg PO QPM 04/30/18 04/30/18 History losartan 50 mg PO DAILY 04/30/18 04/30/18 History metformin 500 mg PO BID 04/30/18 04/30/18 History metoprolol tartrate 50 mg PO BID 04/30/18 04/30/18 History nystatin 1 applic TOPICAL BID 04/30/18 04/30/18 History pantoprazole 40 mg PO DAILY 04/30/18 04/30/18 History pravastatin 60 mg PO DAILY 04/30/18 04/30/18 History pravastatin 60 mg PO DAILY 04/30/18 04/30/18 History Exam Vital signs: Vital Signs 04/30/18 16:58 04/30/18 16:59 04/30/18 17:05 Temperature Pulse Rate 93 H Respiratory Rate Blood Pressure Pulse Oximetry 98 98 98 04/30/18 17:20 04/30/18 17:35 04/30/18 17:50 Temperature Pulse Rate 99 H 97 H 96 H Respiratory Rate 18 18 Blood Pressure 154/70 H 171/74 H 154/70 H Pulse Oximetry 98 99 98 04/30/18 17:55 04/30/18 18:05 04/30/18 18:35 Temperature Pulse Rate 95 H 98 H 96 H Respiratory Rate 18 18 Blood Pressure 144/61 H 138/63 141/79 H Pulse Oximetry 04/30/18 20:20 04/30/18 21:00 04/30/18 22:00 Temperature 98.3 F Pulse Rate 84 94 H Respiratory Rate 23 24 Blood Pressure 173/87 H 146/83 H Pulse Oximetry 98 98 96 04/30/18 23:00 05/01/18 00:00 05/01/18 03:36 Temperature 98.4 F Pulse Rate 81 82 Respiratory Rate 22 23 16 Blood Pressure 126/62 132/66 Pulse Oximetry 98 98 05/01/18 04:00 05/01/18 07:51 Temperature 98.7 F Pulse Rate 76 Respiratory Rate 22 Blood Pressure 148/73 H Pulse Oximetry 97 98 Intake & Output 04/30/18 05/01/18 05/01/18 18:59 06:59 18:59 Intake Total 700 / 700 Output Total 900 / 900 Balance -200 / -200 Weight 122.1 kg 120.5 kg Intake: IV 700 / 700 NS Inj 1,000 ML @ 84 mls/hr IV. 600 / 600 CONT .[id number] [facility] Rx#:[id number] Ofirmev Inj 1,000 mg In 100 ml 100 / 100 @ 400 mls/hr IV.SIG ONCE ONE Rx #:[id number] Activase Drip 81 MG In Bag/ Syringe 1 EACH @ 81 mls/hr IV. SIG ONCE ONE Rx#:[id number] Output: Urine 900 / 900 Other: # Voids 6 Date of Last Bowel Movement 04/30/18 Weight On Admission 120 kg Narrative: A&O x 3 CN II-XII intact Motor 5/5 UE / LE Reflexes symmetric physiologic Gait wnl Results - Laboratory Findings Abnormal lab findings: Abnormal Labs 04/30/18 04/30/18 04/30/18 16:53 16:53 16:53 POC Chloride 100 L POC Glucose 177 H Hemoglobin A1c 6.3 H Triglycerides 263 H Ur Specific [place] Urine Occult Blood Ur Leukocyte Esterase Urine RBC Urine WBC Urine Bacteria 04/30/18 20:00 POC Chloride POC Glucose Hemoglobin A1c Triglycerides Ur Specific [place] 1.046 H Urine Occult Blood Moderate H Ur Leukocyte Esterase Trace H Urine RBC 7 H Urine WBC 12 H Urine Bacteria Occasional H Assessment and Plan - Plan 73yoM with VICE INVESTIGATOR Shunt placed 3-[address] Hammond for hydrocephalus, presented with transient left sided arm weakness and slurred speech. Due for MRI today and shunt valve reprogramming after MRI. Looking up setting of Codman valve on outside records. Will reprogram after MRI.
[2018-05-01] MEDS ORDERED: Gadobutrol PF 2 MMOL/2 ML Vial (for RAD) IV.SIG ONE (15:02)
--- NOTE | 2018-05-01 15:18 | MR ---
EXAM DATE: 05/01/2018 3:06 PM EDT AGE/SEX: 73 years / Male INDICATIONS: CVA. Post TPA. CLINICAL DATA: This is the patient's initial encounter. Patient reports that signs and symptoms have been present for 1 day and indicates a pain score of 0/10. MEDICAL/SURGICAL HISTORY: Diabetes mellitus type II. Hypertension. . Hip replacement. Lumbar. Shunt placement. COMPARISON: No prior exams available for comparison. TECHNIQUE: Multiplanar, multisequence examination of the brain was performed without and with 12 ml G adavist (gadobutrol) contrast as a single exam dose. FINDINGS: Cerebrum: Patient has shunt entering from the right frontal region. There is mild central and cortic al atrophy with dilatation of ventricular and sulcal spaces. There is no restricted diffusion evident . There is no parenchymal hemorrhage. There are no extra-axial fluid collections appreciated. White Matter: Moderate periventricular white matter changes Posterior Fossa: The cerebellum and brainstem are intact. The 4th ventricle is midline. The cerebel lopontine angle is unremarkable. The cerebellar tonsils are normal in position. Diffusion Imaging: No focal areas of restricted diffusion are seen. No evidence of acute infarction . Extracranial: The visualized portions of the orbits and paranasal sinuses are unremarkable. Post Contrast: No abnormal areas of parenchymal or dural enhancement. No evidence of blood-brain ba rrier breakdown. CONCLUSION: 1. Negative for an acute hemorrhage following TPA 2. Ventriculoperitoneal shunt in place 3. Central and cortical atrophy. Electronically signed by: Hitesh Gillis MD 05/01/2018 3:17 PM EDT
--- NOTE | 2018-05-01 17:53 | CT ---
EXAM DATE: 05/01/2018 5:49 PM EDT AGE/SEX: 73 years / Male INDICATIONS: Post TPA evaluation. CLINICAL DATA: This is the patient's subsequent encounter. Patient reports that signs and symptoms h ave been present for 2 days and indicates a pain score of 0/10. MEDICAL/SURGICAL HISTORY: Hypertension. Diabetes. . TUBE BENDER shunt. RADIATION DOSE: 44.71 CTDI (mGy) [place] [facility] [place]. [facility] [place]. . TECHNIQUE: CT of the head without contrast. Using automated exposure control and adjustment of the mA and/or kV according to patient size, radiation dose was kept as low as reasonably achievable to ob tain optimal diagnostic quality images. DICOM format image data is available electronically for revi ew and comparison. FINDINGS: Cerebrum: There is mild generalized atrophy and ventricles are normal given the degree of atrophy. M ild periventricular white matter change is present. There is a right frontal TUBE BENDER shunt in place with t ubing tip in the midline. There is a stable low-density in the right frontal lobe adjacent to the TUBE BENDER shunt tubing. No midline shift, mass lesion, hemorrhage or acute infarction. No extraaxial fluid col lections are seen. Posterior Fossa: The cerebellum and brainstem demonstrate no acute abnormality. The 4th ventricle is midline. The cerebellopontine angle is within normal limits. Extracranial: The visualized sinuses are clear. Skull: The calvaria is intact. No skull fracture. CONCLUSION: 1. There is no hemorrhage following TPA. 2. Overall, stable noncontrast head CT. . Electronically signed by: Blas Quiroga MD 05/01/2018 5:52 PM EDT
--- NOTE | 2018-05-01 18:13 | ECHRPT ---
Indication: CVA/TIA CONCLUSIONS The left ventricular systolic function is normal with an estimated ejection fraction in the range of 55-60%. Mild concentric left ventricular hypertrophy. Doppler parameters are consistent with a pseudonormal left ventricular filling pattern with concomin ant abnormal relaxation and increased filling pressure (grade 2 diastolic dysfunction). There is trace tricuspid valve regurgitation. BP: 166 / 77 HR: Rhythm: MEASUREMENTS (Male / Female) Normal Values Technical Quality:Technically difficult study 2D ECHO LV Diastolic Diameter PLAX 4.8 cm 4.2 - 5.9 / 3.9 - 5.3 cm LV Systolic Diameter PLAX 3.0 cm IVS Diastolic Thickness 1.1 cm 0.6 - 1.0 / 0.6 - 0.9 cm LVPW Diastolic Thickness 1.2 cm 0.6 - 1.0 / 0.6 - 0.9 cm LV Relative Wall Thickness 0.5 RV Internal Dim ED PLAX 2.8 cm LVOT Diameter 2.2 cm Aortic Root Diameter 3.2 cm LA Systolic Diameter LX 3.1 cm 3.0 - 4.0 / 2.7 - 3.8 cm DOPPLER AV Peak Velocity 129.0 cm/s AV Peak Gradient 6.7 mmHg LVOT Peak Velocity 83.9 cm/s LVOT Peak Gradient 2.8 mmHg AV Area Cont Eq pk 2.5 cm Mitral E Point Velocity 85.4 cm/s Mitral A Point Velocity 73.1 cm/s Mitral E to A Ratio 1.2 LV E' Lateral Velocity 6.8 cm/s Mitral E to LV E' Lateral Ratio 12.5 LV E' Septal Velocity 8.0 cm/s Mitral E to LV E' Septal Ratio 10.7 TR Peak Velocity 209.0 cm/s TR Peak Gradient 17.5 mmHg Right Atrial Pressure 10.0 mmHg Pulmonary Artery Systolic Pressu 27.5 mmHg Right Ventricular Systolic Press 27.5 mmHg PV Peak Velocity 109.0 cm/s PV Peak Gradient 4.8 mmHg FINDINGS LEFT VENTRICLE Normal left ventricular size. Mild concentric left ventricular hypertrophy. The left ventricular systolic function is normal with an estimated ejection fraction in the range of 55-60%. Doppler parameters are consistent with a pseudonormal left ventricular filling pattern with concomin ant abnormal relaxation and increased filling pressure (grade 2 diastolic dysfunction). RIGHT VENTRICLE Normal right ventricular size and systolic function. LEFT ATRIUM The left atrial size is normal. RIGHT ATRIUM The right atrial size is normal. ATRIAL SEPTUM Normal atrial septal thickness without atrial level shunting by limited color doppler interrogation. AORTA The aortic root and proximal ascending aorta are normal in size on limited imaging. MITRAL VALVE Structurally normal mitral valve. No mitral valve stenosis or regurgitation. AORTIC VALVE Aortic valve sclerosis is present. No aortic valve regurgitation. No aortic valve stenosis. TRICUSPID VALVE Grossly normal There is trace tricuspid valve regurgitation. The estimated pulmonary arterial pressure is 28 mmHg. PULMONARY VALVE No pulmonary valve regurgitation or stenosis. VESSELS The inferior vena cava is normal in size. PERICARDIUM No pericardial effusion. Watson Levine DO (Electronically Signed) Final Date:01 May 2018 18:12
--- NOTE | 2018-05-01 18:40 | MG ---
cc: Terri Meeks MD, David J MD ELECTROENCEPHALOGRAM NUMBER: [id number] REFERRING PHYSICIAN: Ayaan Doherty MD AGE: 73 CLINICAL HISTORY: In room 1331. With photic done. No sedation. Awake, drowsy. CT unremarkable. Ventriculostomy noted on CT. Admitted with slurred speech, left-sided weakness. On Lipitor, questionable anticoagulant therapy. DESCRIPTION OF RECORD: The patient has an alpha rhythm of 9 Hz, 20 microvolts. Low-amplitude EEG, but symmetrical. EKG cannot be interpreted. Overall, well-organized background, symmetrical. Hyperventilation was not done in the study. Photic stimulation does elicit a posterior driving response. No evidence of any epileptiform features. OVERALL IMPRESSION: Normal-appearing electroencephalogram without any epileptiform features. MD HEATHER Cade/chelsey , 06:26 PM , 06:30 PM
--- NOTE | 2018-05-01 19:22 | XR ---
EXAM DATE: 05/01/2018 6:29 PM EDT AGE/SEX: 73 years / Male INDICATIONS: Evaluate shunt setting post MRI CLINICAL DATA: This is the patient's initial encounter. Patient reports that signs and symptoms have been present for 1 day and indicates a pain score of 0/10. MEDICAL/SURGICAL HISTORY: . Diabetes mellitus type II. Hypertension. . Shunt placement COMPARISON: [facility] – [place]/O [place]AST, 05/01/2018. . FINDINGS: A lateral view of the skull over the valve pressure verification wheel has been obtained. The pressur e is 120 mm of H2O. CONCLUSION: Shunt pressure reading of 120 mm of H2O. Electronically signed by: Blas Beck MD 05/01/2018 7:21 PM EDT
--- NOTE | 2018-05-01 20:44 | ECG ---
Date Performed: 04/30/2018 Time Performed: 19:38:01 PTAGE: 73 years EKG: Sinus rhythm WITH FIRST DEGREE AV BLOCK MODERATE INTRAVENTRICULAR CONDUCTION DELAY MINIMAL ST DEPRESSION ABNORMAL ECG PREVIOUS TRACING : 08/01/2017 11.44 Since the previous tracing, no significant change noted DOCTOR: Corby Nino Interpretating Date/Time 05/01/2018 20:42:59
[2018-05-01 22:55] LABS: Baso % (Auto) 0.5 % (0.0-2.0); Eos # (Auto) 0.3 th/mm3 (0.0-0.4); Eos % (Auto) 3.4 % (0.0-4.0); Hemoglobin 13.1 gm/dL (13.0-17.0); Lymph # (Auto) 1.8 th/mm3 (1.0-4.8); Lymph % (Auto) 22.4 % (9.0-44.0); Mean Corpuscular HGB Conc 33.7 % (32.0-36.0); Mean Corpuscular Hemoglobin 30.5 pg (27.0-34.0); Mean Corpuscular Volume 90.5 fL (80.0-100.0); Mean Platelet Volume 6.2 fL (7.0-11.0); Mono # (Auto) 0.6 th/mm3 (0.0-0.9); Mono % (Auto) 7.6 % (0.0-8.0); Neut # (Auto) 5.2 th/mm3 (1.8-7.7); Neut % (Auto) 66.1 % (16.0-70.0); Platelet Count 208 th/mm3 (150-450); Red Blood Count 4.31 mil/mm3 (4.50-5.90); Red Cell Distribution Width 13.4 % (11.6-17.2); White Blood Count 7.9 th/mm3 (4.0-11.0)
[2018-05-01 23:20] LABS: Calcium 8.6 mg/dL (8.5-10.1); Carbon Dioxide 27.5 meq/L (21.0-32.0); Magnesium 2.1 mg/dL (1.5-2.5); Phosphorus 3.5 mg/dL (2.5-4.9); Potassium 3.9 meq/L (3.5-5.1)
[2018-05-01 23:24] LABS: Chol/HDL Ratio 3.92 Ratio; HDL Cholesterol 37.2 mg/dL (40.0-60.0); Troponin I 0.04 ng/mL (0.02-0.05)
[2018-05-02] MEDS: Insulin NovoLIN Regular Correctional Sugar Inj SQ SCH ×4 (00:38→18:22)
[2018-05-02] MEDS: Chlorhexidine Gluconate 2% 1 Pack (2 Cloths) TOPICAL SCH (04:32)
[2018-05-02 05:39] LABS: Baso % (Auto) 0.5 % (0.0-2.0); Eos # (Auto) 0.3 th/mm3 (0.0-0.4); Eos % (Auto) 3.6 % (0.0-4.0); Hematocrit 40.5 % (39.0-51.0); Hemoglobin 13.7 gm/dL (13.0-17.0); Lymph % (Auto) 25.2 % (9.0-44.0); Mean Corpuscular HGB Conc 33.7 % (32.0-36.0); Mean Corpuscular Hemoglobin 31.4 pg (27.0-34.0); Mean Corpuscular Volume 93.2 fL (80.0-100.0); Mono # (Auto) 0.6 th/mm3 (0.0-0.9); Mono % (Auto) 7.3 % (0.0-8.0); Neut % (Auto) 63.4 % (16.0-70.0); Platelet Count 198 th/mm3 (150-450); Red Blood Count 4.34 mil/mm3 (4.50-5.90); Red Cell Distribution Width 13.2 % (11.6-17.2); White Blood Count 7.9 th/mm3 (4.0-11.0)
[2018-05-02 06:08] LABS: Anion Gap 7 meq/L (5-15); Blood Urea Nitrogen 12 mg/dL (7-18); Calcium 8.4 mg/dL (8.5-10.1); Carbon Dioxide 26.2 meq/L (21.0-32.0); Chloride 105 meq/L (98-107); Glomerular Filtration Rate Greater Than 89 mL/min (>89); Glucose,Random 111 mg/dL (74-106); Magnesium 2.2 mg/dL (1.5-2.5); Potassium 4.2 meq/L (3.5-5.1); Sodium 138 meq/L (136-145)
[2018-05-02 06:09] LABS: Phosphorus 3.3 mg/dL (2.5-4.9)
[2018-05-02] MEDS: Sod Chloride 0.9% Inj 1,000 ML IV.CONT SCH (06:48)
[2018-05-02] MEDS: Polyethylene Glycol 3350 17 GM Packet PO SCH ×2 (08:39→21:56)
[2018-05-02] MEDS: Senna/Docusate Sodium 8.6/50 MG Tablet PO SCH ×2 (08:40→21:56)
[2018-05-02] MEDS: Famotidine 20 MG Tablet PO SCH ×2 (08:40→21:56)
[2018-05-02] MEDS ORDERED: Influenza (Quadrivalent) Vaccine 0.5 ML Syringe IM ONE (09:00)
--- NOTE | 2018-05-02 11:27 | P.DCO ---
- Diagnosis (1) Acute cerebrovascular accident Status: Acute - Physical Therapy Order: Evaluate and treat - Case Management Consult No - Certification I have seen patient Coleman Lopez on 05/02/18. My clinical findings support the need for the requested home health care services because: Deconditioned with increased weakness I certify that my clinical findings support that this patient is homebound because: Poor cardiac reserve
--- NOTE | 2018-05-02 11:41 | P.PN ---
Subjective Interval history: Follow-up acute CVA May 02, 2018-patient seen and examined; complaint of rash in his right groin area. No headaches, shortness of breath, heart palpitation or visual change. MRI brain unremarkable and no intervention needed per neurosurgery. Physical Exam Vital signs: Vital Signs 05/01/18 12:00 05/01/18 13:00 05/01/18 13:23 Temperature 98.1 F Pulse Rate 89 83 101 H Respiratory Rate 31 H 20 38 H Blood Pressure 139/75 139/71 140/71 Pulse Oximetry 94 L 94 L 95 05/01/18 14:00 05/01/18 15:27 05/01/18 16:00 Temperature 99.0 F Pulse Rate 91 H Respiratory Rate 31 H Blood Pressure 147/76 H 143/76 H Pulse Oximetry 93 L 95 95 05/01/18 17:00 05/01/18 18:35 05/01/18 19:00 Temperature Pulse Rate 96 H 97 H 92 H Respiratory Rate 36 H 29 H 33 H Blood Pressure 145/79 H 129/77 125/69 Pulse Oximetry 95 94 L 94 L 05/01/18 20:00 05/01/18 21:00 05/01/18 21:37 Temperature Pulse Rate 91 H 83 Respiratory Rate 17 21 Blood Pressure 123/84 134/73 Pulse Oximetry 94 L 93 L 95 05/01/18 22:00 05/01/18 23:00 05/02/18 00:00 Temperature 98.0 F Pulse Rate 84 78 73 Respiratory Rate 30 H 24 24 Blood Pressure 150/75 H 146/67 H 142/65 H Pulse Oximetry 98 95 94 L 05/02/18 01:00 05/02/18 02:00 05/02/18 03:00 Temperature Pulse Rate 80 77 70 Respiratory Rate 20 20 23 Blood Pressure 145/78 H 155/76 H 140/71 Pulse Oximetry 97 96 95 05/02/18 04:00 05/02/18 05:00 05/02/18 06:00 Temperature 98.0 F Pulse Rate 72 85 84 Respiratory Rate 16 18 21 Blood Pressure 129/61 146/85 H 131/68 Pulse Oximetry 94 L 97 97 05/02/18 07:00 05/02/18 08:00 Temperature 98.1 F 98.1 F Pulse Rate 82 82 Respiratory Rate 18 18 Blood Pressure 140/67 140/67 Pulse Oximetry 98 Intake & Output 11/02/18 11/03/18 11/03/18 18:59 06:59 18:59 Intake Total 1500 / 1500 1600 / 1600 180 / 180 Output Total 900 / 900 Balance 1500 / 1500 700 / 700 180 / 180 Weight 120.3 kg Intake: IV 700 / 700 1600 / 1600 NS Inj 1,000 ML @ 84 mls/hr IV. 700 / 700 1600 / 1600 CONT .[id number] [facility] Rx#:[id number] Oral 800 / 800 180 / 180 Output: Urine 900 / 900 Other: # Voids 3 Date of Last Bowel Movement 04/30/18 04/30/18 # Bowel Movements 0 Narrative: GENERAL: NAD SKIN: Warm and dry. HEAD: Normocephalic. EYES: No scleral icterus. No injection or drainage. NECK: Supple, trachea midline. No JVD or lymphadenopathy. CARDIOVASCULAR: Regular rate and rhythm without murmurs, gallops, or rubs. RESPIRATORY: Breath sounds equal bilaterally. No accessory muscle use. GASTROINTESTINAL: Abdomen soft, non-tender, nondistended. MUSCULOSKELETAL: No cyanosis, or edema. BACK: Nontender without obvious deformity. No CVA tenderness. Results - Labs CBC & Chem 7: 05/02/18 05:10 05/02/18 05:10 Laboratory Results - last 24 hr 05/01/18 05/01/18 05/01/18 12:52 18:44 22:22 WBC 7.9 RBC 4.31 L Hgb 13.1 Hct 39.0 MCV 90.5 MCH 30.5 MCHC 33.7 RDW 13.4 Plt Count 208 MPV 6.2 L Neut % (Auto) 66.1 Lymph % (Auto) 22.4 [place] % (Auto) 7.6 Eos % (Auto) 3.4 Baso % (Auto) 0.5 Neut # (Auto) 5.2 Lymph # (Auto) 1.8 [place] # (Auto) 0.6 Eos # (Auto) 0.3 Baso # (Auto) 0.0 WBC Differential . Differential Comment Auto diff final Sodium Potassium Chloride Carbon Dioxide Anion Gap BUN Creatinine Estimated GFR POC Glucose 118 H 149 H Random Glucose Calcium Phosphorus Magnesium Total Creatine Kinase Troponin I Triglycerides Cholesterol LDL Cholesterol, Calc HDL Cholesterol Cholesterol/HDL Ratio 05/01/18 05/02/18 05/02/18 22:22 05:10 05:10 WBC 7.9 RBC 4.34 L Hgb 13.7 Hct 40.5 MCV 93.2 MCH 31.4 MCHC 33.7 RDW 13.2 Plt Count 198 MPV 6.0 L Neut % (Auto) 63.4 Lymph % (Auto) 25.2 [place] % (Auto) 7.3 Eos % (Auto) 3.6 Baso % (Auto) 0.5 Neut # (Auto) 5.0 Lymph # (Auto) 2.0 [place] # (Auto) 0.6 Eos # (Auto) 0.3 Baso # (Auto) 0.0 WBC Differential . Differential Comment Auto diff final Sodium 140 138 Potassium 3.9 4.2 Chloride 104 105 Carbon Dioxide 27.5 26.2 Anion Gap 9 7 BUN 11 12 Creatinine 0.89 0.74 Estimated GFR 84 L Greater than 89 POC Glucose Random Glucose 117 H 111 H Calcium 8.6 8.4 L Phosphorus 3.5 3.3 Magnesium 2.1 2.2 Total Creatine Kinase 85 Troponin I 0.04 Triglycerides 170 H Cholesterol 146 LDL Cholesterol, Calc 75 HDL Cholesterol 37.2 L Cholesterol/HDL Ratio 3.92 Microbiology 04/30/18 20:00 Clean Catch Urine Urine Culture - Final 10-50,000 cfu/mL mixed gram positive lupe (probable contaminants) - Imaging Impressions Skull X-Ray 05/01/18 00:00 CONCLUSION: Shunt pressure reading of 120 mm of [address]2O. Head CT 05/01/18 05:00 CONCLUSION: 1. There is no hemorrhage following TPA. 2. Overall, stable noncontrast head CT. . Head MRI 05/01/18 07:09 CONCLUSION: 1. Negative for an acute hemorrhage following TPA 2. Ventriculoperitoneal shunt in place 3. Central and cortical atrophy. - Procedures none Assessment and Plan - Assessment (1) Acute cerebrovascular accident Code(s): I63.9 - Cerebral infarction, unspecified Status: Acute - Plan 73-year-old man with Acute CVA - s/p systemic TPA - MRI brain Negative for an acute hemorrhage following TPA - 2d echo with EF 55-60% - stroke navigator - Atorvastatin 80 mg nightly - ASA, Plavix after 24 hours and phamacologic DVT prophylaxis after 24h post TPA. - neurology Dr. 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 No other neurosurgical intervention planned Hypertensive Emergency-Resolved - Resume anti-hypertensives Diabetes - ssi - a1c 6.3 -Prediabetic education
--- NOTE | 2018-05-02 11:54 | P.PN ---
Subjective Interval history: cross coverage for Dr Doherty. s/p tpa OOB to chair.No new issues.Asking if can go home soon. Physical Exam Vital signs: Vital Signs 05/01/18 12:00 05/01/18 13:00 05/01/18 13:23 Temperature 98.1 F Pulse Rate 89 83 101 H Respiratory Rate 31 H 20 38 H Blood Pressure 139/75 139/71 140/71 Pulse Oximetry 94 L 94 L 95 05/01/18 14:00 05/01/18 15:27 05/01/18 16:00 Temperature 99.0 F Pulse Rate 91 H Respiratory Rate 31 H Blood Pressure 147/76 H 143/76 H Pulse Oximetry 93 L 95 95 05/01/18 17:00 05/01/18 18:35 05/01/18 19:00 Temperature Pulse Rate 96 H 97 H 92 H Respiratory Rate 36 H 29 H 33 H Blood Pressure 145/79 H 129/77 125/69 Pulse Oximetry 95 94 L 94 L 05/01/18 20:00 05/01/18 21:00 05/01/18 21:37 Temperature Pulse Rate 91 H 83 Respiratory Rate 17 21 Blood Pressure 123/84 134/73 Pulse Oximetry 94 L 93 L 95 05/01/18 22:00 05/01/18 23:00 05/02/18 00:00 Temperature 98.0 F Pulse Rate 84 78 73 Respiratory Rate 30 H 24 24 Blood Pressure 150/75 H 146/67 H 142/65 H Pulse Oximetry 98 95 94 L 05/02/18 01:00 05/02/18 02:00 05/02/18 03:00 Temperature Pulse Rate 80 77 70 Respiratory Rate 20 20 23 Blood Pressure 145/78 H 155/76 H 140/71 Pulse Oximetry 97 96 95 05/02/18 04:00 05/02/18 05:00 05/02/18 06:00 Temperature 98.0 F Pulse Rate 72 85 84 Respiratory Rate 16 18 21 Blood Pressure 129/61 146/85 H 131/68 Pulse Oximetry 94 L 97 97 05/02/18 07:00 05/02/18 08:00 Temperature 98.1 F 98.1 F Pulse Rate 82 82 Respiratory Rate 18 18 Blood Pressure 140/67 140/67 Pulse Oximetry 98 Intake & Output 05/01/18 05/02/18 05/02/18 18:59 06:59 18:59 Intake Total 1500 / 1500 1600 / 1600 180 / 180 Output Total 900 / 900 Balance 1500 / 1500 700 / 700 180 / 180 Weight 120.3 kg Intake: IV 700 / 700 1600 / 1600 NS Inj 1,000 ML @ 84 mls/hr IV. 700 / 700 1600 / 1600 CONT .[id number] [facility] Rx#:[id number] Oral 800 / 800 180 / 180 Output: Urine 900 / 900 Other: # Voids 3 Date of Last Bowel Movement 04/30/18 04/30/18 # Bowel Movements 0 - Constitutional no acute distress - Routine HEENT Exam Head: Present: normocephalic, atraumatic Eye: Present: EOMI, PERRL - Routine Cardiovascular Exam Present: RRR - Routine Neurological Exam Present: alert, oriented X3, CN II-XII intact, moving all extremities, normal tone Results - Labs CBC & Chem 7: 05/02/18 05:10 05/02/18 05:10 Laboratory Results - last 24 hr 05/01/18 05/01/18 05/01/18 12:52 18:44 22:22 WBC 7.9 RBC 4.31 L Hgb 13.1 Hct 39.0 MCV 90.5 MCH 30.5 MCHC 33.7 RDW 13.4 Plt Count 208 MPV 6.2 L Neut % (Auto) 66.1 Lymph % (Auto) 22.4 [place] % (Auto) 7.6 Eos % (Auto) 3.4 Baso % (Auto) 0.5 Neut # (Auto) 5.2 Lymph # (Auto) 1.8 [place] # (Auto) 0.6 Eos # (Auto) 0.3 Baso # (Auto) 0.0 WBC Differential . Differential Comment Auto diff final Sodium Potassium Chloride Carbon Dioxide Anion Gap BUN Creatinine Estimated GFR POC Glucose 118 H 149 H Random Glucose Calcium Phosphorus Magnesium Total Creatine Kinase Troponin I Triglycerides Cholesterol LDL Cholesterol, Calc HDL Cholesterol Cholesterol/HDL Ratio 05/01/18 05/02/18 05/02/18 22:22 05:10 05:10 WBC 7.9 RBC 4.34 L Hgb 13.7 Hct 40.5 MCV 93.2 MCH 31.4 MCHC 33.7 RDW 13.2 Plt Count 198 MPV 6.0 L Neut % (Auto) 63.4 Lymph % (Auto) 25.2 [place] % (Auto) 7.3 Eos % (Auto) 3.6 Baso % (Auto) 0.5 Neut # (Auto) 5.0 Lymph # (Auto) 2.0 [place] # (Auto) 0.6 Eos # (Auto) 0.3 Baso # (Auto) 0.0 WBC Differential . Differential Comment Auto diff final Sodium 140 138 Potassium 3.9 4.2 Chloride 104 105 Carbon Dioxide 27.5 26.2 Anion Gap 9 7 BUN 11 12 Creatinine 0.89 0.74 Estimated GFR 84 L Greater than 89 POC Glucose Random Glucose 117 H 111 H Calcium 8.6 8.4 L Phosphorus 3.5 3.3 Magnesium 2.1 2.2 Total Creatine Kinase 85 Troponin I 0.04 Triglycerides 170 H Cholesterol 146 LDL Cholesterol, Calc 75 HDL Cholesterol 37.2 L Cholesterol/HDL Ratio 3.92 Microbiology 04/30/18 20:00 Clean Catch Urine Urine Culture - Final 10-50,000 cfu/mL mixed gram positive lupe (probable contaminants) - Imaging Impressions Skull X-Ray 05/01/18 00:00 CONCLUSION: Shunt pressure reading of 120 mm of H2O. Head CT 05/01/18 05:00 CONCLUSION: 1. There is no hemorrhage following TPA. 2. Overall, stable noncontrast head CT. . Head MRI 05/01/18 07:09 CONCLUSION: 1. Negative for an acute hemorrhage following TPA 2. Ventriculoperitoneal shunt in place 3. Central and cortical atrophy. Assessment and Plan - Plan oob PT walker plavix 75mg qd f/u outpt w/his neurologist and pcp. d/c planning.
[2018-05-02] MEDS ORDERED: LEVOCETIRIZINE 5 MG PO SCH (21:00)
[2018-05-02] MEDS: Metoprolol Tartrate 50 MG Tablet PO SCH (21:56)
[2018-05-03] MEDS: Insulin NovoLIN Regular Correctional Sugar Inj SQ SCH ×3 (00:48→11:52)
[2018-05-03] MEDS: Chlorhexidine Gluconate 2% 1 Pack (2 Cloths) TOPICAL SCH (03:16)
[2018-05-03] MEDS: Famotidine 20 MG Tablet PO SCH (08:17)
[2018-05-03] MEDS: Polyethylene Glycol 3350 17 GM Packet PO SCH (08:18)
[2018-05-03] MEDS: Metoprolol Tartrate 50 MG Tablet PO SCH (08:18)
[2018-05-03] MEDS: Senna/Docusate Sodium 8.6/50 MG Tablet PO SCH (08:19)
[2018-05-03] MEDS ORDERED: amLODIPine 5 MG Tablet PO SCH (09:00)
[2018-05-03 09:33] LABS: Baso % (Auto) 0.4 % (0.0-2.0); Eos # (Auto) 0.3 th/mm3 (0.0-0.4); Eos % (Auto) 3.9 % (0.0-4.0); Hematocrit 41.1 % (39.0-51.0); Hemoglobin 14.1 gm/dL (13.0-17.0); Lymph # (Auto) 1.6 th/mm3 (1.0-4.8); Lymph % (Auto) 21.4 % (9.0-44.0); Mean Corpuscular HGB Conc 34.4 % (32.0-36.0); Mean Corpuscular Hemoglobin 31.3 pg (27.0-34.0); Mean Corpuscular Volume 91.1 fL (80.0-100.0); Mean Platelet Volume 6.3 fL (7.0-11.0); Mono # (Auto) 0.6 th/mm3 (0.0-0.9); Mono % (Auto) 8.2 % (0.0-8.0); Neut # (Auto) 4.9 th/mm3 (1.8-7.7); Neut % (Auto) 66.1 % (16.0-70.0); Platelet Count 195 th/mm3 (150-450); Red Blood Count 4.51 mil/mm3 (4.50-5.90); Red Cell Distribution Width 13.5 % (11.6-17.2); White Blood Count 7.5 th/mm3 (4.0-11.0)
[2018-05-03 10:05] LABS: Anion Gap 9 meq/L (5-15); Blood Urea Nitrogen 13 mg/dL (7-18); Chloride 102 meq/L (98-107); Glomerular Filtration Rate Greater Than 89 mL/min (>89); Glucose,Random 102 mg/dL (74-106); Magnesium 2.4 mg/dL (1.5-2.5); Phosphorus 3.5 mg/dL (2.5-4.9); Potassium 4.3 meq/L (3.5-5.1); Sodium 138 meq/L (136-145)
--- NOTE | 2018-05-03 11:26 | P.PN ---
Subjective Interval history: Follow-up acute CVA May 02, 2018-patient seen and examined; complaint of rash in his right groin area. No headaches, shortness of breath, heart palpitation or visual change. MRI brain unremarkable and no intervention needed per neurosurgery. May 03, 2018-patient seen and examined, no complaint and stable. Looking forward going home today Physical Exam Vital signs: Vital Signs 05/02/18 20:00 05/03/18 00:00 05/03/18 04:00 Temperature 97.8 F 97.6 F 97.3 F L Pulse Rate 106 H 80 75 Respiratory Rate 18 Blood Pressure 171/89 H 159/95 H 166/73 H Pulse Oximetry 94 L 97 94 L 05/03/18 08:00 Temperature 97.6 F Pulse Rate 71 Respiratory Rate 14 Blood Pressure 132/76 Pulse Oximetry 100 Intake & Output 05/02/18 05/03/18 05/03/18 19:59 06:59 18:59 Intake Total Balance Intake: IV NS Inj 1,000 ML @ 84 mls/hr IV. CONT .[id number] [facility] Rx#:[id number] Oral Other: # Voids Date of Last Bowel Movement 05/03/18 # Bowel Movements Narrative: GENERAL: NAD SKIN: Warm and dry. HEAD: Normocephalic. EYES: No scleral icterus. No injection or drainage. NECK: Supple, trachea midline. No JVD or lymphadenopathy. CARDIOVASCULAR: Regular rate and rhythm without murmurs, gallops, or rubs. RESPIRATORY: Breath sounds equal bilaterally. No accessory muscle use. GASTROINTESTINAL: Abdomen soft, non-tender, nondistended. MUSCULOSKELETAL: No cyanosis, or edema. BACK: Nontender without obvious deformity. No CVA tenderness. Results - Labs CBC & Chem 7: 05/03/18 08:39 05/03/18 08:39 Laboratory Results - last 24 hr 05/02/18 05/02/18 05/02/18 13:07 16:42 20:25 WBC RBC Hgb Hct MCV MCH MCHC RDW Plt Count MPV Neut % (Auto) Lymph % (Auto) [place] % (Auto) Eos % (Auto) Baso % (Auto) Neut # (Auto) Lymph # (Auto) [place] # (Auto) Eos # (Auto) Baso # (Auto) WBC Differential Differential Comment Sodium Potassium Chloride Carbon Dioxide Anion Gap BUN Creatinine Estimated GFR POC Glucose 116 H 166 H 127 H Random Glucose Calcium Phosphorus Magnesium 05/03/18 05/03/18 05/03/18 00:41 06:02 08:39 WBC 7.5 RBC 4.51 Hgb 14.1 Hct 41.1 MCV 91.1 MCH 31.3 MCHC 34.4 RDW 13.5 Plt Count 195 MPV 6.3 L Neut % (Auto) 66.1 Lymph % (Auto) 21.4 [place] % (Auto) 8.2 H Eos % (Auto) 3.9 Baso % (Auto) 0.4 Neut # (Auto) 4.9 Lymph # (Auto) 1.6 [place] # (Auto) 0.6 Eos # (Auto) 0.3 Baso # (Auto) 0.0 WBC Differential . Differential Comment Auto diff final Sodium Potassium Chloride Carbon Dioxide Anion Gap BUN Creatinine Estimated GFR POC Glucose 131 H 148 H Random Glucose Calcium Phosphorus Magnesium 05/03/18 08:39 WBC RBC Hgb Hct MCV MCH MCHC RDW Plt Count MPV Neut % (Auto) Lymph % (Auto) [place] % (Auto) Eos % (Auto) Baso % (Auto) Neut # (Auto) Lymph # (Auto) [place] # (Auto) Eos # (Auto) Baso # (Auto) WBC Differential Differential Comment Sodium 138 Potassium 4.3 Chloride 102 Carbon Dioxide 27.0 Anion Gap 9 BUN 13 Creatinine 0.75 Estimated GFR Greater than 89 POC Glucose Random Glucose 102 Calcium 9.0 Phosphorus 3.5 Magnesium 2.4 Microbiology 04/30/18 20:00 Clean Catch Urine Urine Culture - Final 10-50,000 cfu/mL mixed gram positive lupe (probable contaminants) - Procedures none Assessment and Plan - Assessment (1) Acute cerebrovascular accident Code(s): I63.9 - Cerebral infarction, unspecified Status: Acute - Plan 73-year-old man with Acute CVA - s/p systemic TPA - MRI brain Negative for an acute hemorrhage following TPA - 2d echo with EF 55-60% - stroke navigator - Atorvastatin 80 mg nightly -Continue with Plavix -Appreciate input from neurology Dr. 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 No other neurosurgical intervention planned Hypertensive Emergency-Resolved -Continue anti-hypertensives Diabetes - ssi - a1c 6.3 -Prediabetic education - Resume medication
--- NOTE | 2018-05-03 11:29 | P.DS ---
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 last normal at 17:15. on admission, NIH stroke scale 6. Received IV TPA. head CT without acute bleed. denies any other complaints. specifically denies chest pain, sob, fever, chills, n/v/c/d/abd pain. denies cough. DS: Diagnosis - Discharge Diagnosis (1) Acute cerebrovascular accident Status: Acute DS: Medications - Discharge Medications Prescriptions: atorvastatin 80 mg PO DAILY #30 tab clopidogrel [Plavix] 75 mg PO DAILY #30 tab DS: Summary Hospital Course: Patient was admitted with acute CVA for which he was treated with TPA will consultation to neurology. Brain MRI postprocedure was ordered and did not reveal any acute MRI GI following TPA. He was started on Plavix as a result. He was continued on his statin. PT, OT and ST were all consulted. A 2D echo was obtained with EF of 50-60%. Secondary to history of MOBILITY ENGINEER shunt, neurosurgery was consulted however a follow-up brain MRI did not show any evidence of hemorrhage after TPA or shunt malfunction, therefore no other neurosurgical intervention planned. Patient oral antihypertensive medication was subsequently resumed after permissive hypertension were discontinued. He was placed on sliding scale insulin with monitoring of blood glucose. Prior to discharge, patient's conditions improved and vitals remained stable. - Time Spent with Patient Total time spent providing and/or coordinating discharge services: Greater than 30 minutes - Quality: VTE Deep Vein Thrombosis/Pulmonary Embolism Present on Admission: No Exam Vital signs: Vital Signs 05/02/18 20:00 05/03/18 00:00 05/03/18 04:00 Temperature 97.8 F 97.6 F 97.3 F L Pulse Rate 106 H 80 75 Respiratory Rate 18 18 18 Blood Pressure 171/89 H 159/95 H 166/73 H Pulse Oximetry 94 L 97 94 L 05/03/18 08:00 Temperature 97.6 F Pulse Rate 71 Respiratory Rate 14 Blood Pressure 132/76 Pulse Oximetry 100 Intake & Output 05/02/18 05/03/18 05/03/18 19:59 06:59 18:59 Intake Total Balance Intake: IV NS Inj 1,000 ML @ 84 mls/hr IV. CONT .[id number] [facility] Rx#:[id number] Oral Other: # Voids Date of Last Bowel Movement 05/03/18 # Bowel Movements Narrative: GENERAL: NAD SKIN: Warm and dry. HEAD: Normocephalic. EYES: No scleral icterus. No injection or drainage. NECK: Supple, trachea midline. No JVD or lymphadenopathy. CARDIOVASCULAR: Regular rate and rhythm without murmurs, gallops, or rubs. RESPIRATORY: Breath sounds equal bilaterally. No accessory muscle use. GASTROINTESTINAL: Abdomen soft, non-tender, nondistended. MUSCULOSKELETAL: No cyanosis, or edema. BACK: Nontender without obvious deformity. No CVA tenderness. Results Procedures completed during hospitalization: none Labs on day of discharge: Labs from last 24 hours 05/03/18 05/03/18 05/03/18 08:39 08:39 06:02 WBC 7.5 RBC 4.51 Hgb 14.1 Hct 41.1 MCV 91.1 MCH 31.3 MCHC 34.4 RDW 13.5 Plt Count 195 MPV 6.3 L Neut % (Auto) 66.1 Lymph % (Auto) 21.4 [place] % (Auto) 8.2 H Eos % (Auto) 3.9 Baso % (Auto) 0.4 Neut # (Auto) 4.9 Lymph # (Auto) 1.6 [place] # (Auto) 0.6 Eos # (Auto) 0.3 Baso # (Auto) 0.0 WBC Differential . Differential Comment Auto diff final Sodium 138 Potassium 4.3 Chloride 102 Carbon Dioxide 27.0 Anion Gap 9 BUN 13 Creatinine 0.75 Estimated GFR Greater than 89 POC Glucose 148 H Random Glucose 102 Calcium 9.0 Phosphorus 3.5 Magnesium 2.4 05/03/18 05/02/18 05/02/18 00:41 20:25 16:42 WBC RBC Hgb Hct MCV MCH MCHC RDW Plt Count MPV Neut % (Auto) Lymph % (Auto) [place] % (Auto) Eos % (Auto) Baso % (Auto) Neut # (Auto) Lymph # (Auto) [place] # (Auto) Eos # (Auto) Baso # (Auto) WBC Differential Differential Comment Sodium Potassium Chloride Carbon Dioxide Anion Gap BUN Creatinine Estimated GFR POC Glucose 131 H 127 H 166 H Random Glucose Calcium Phosphorus Magnesium 05/02/18 13:07 WBC RBC Hgb Hct MCV MCH MCHC RDW Plt Count MPV Neut % (Auto) Lymph % (Auto) [place] % (Auto) Eos % (Auto) Baso % (Auto) Neut # (Auto) Lymph # (Auto) [place] # (Auto) Eos # (Auto) Baso # (Auto) WBC Differential Differential Comment Sodium Potassium Chloride Carbon Dioxide Anion Gap BUN Creatinine Estimated GFR POC Glucose 116 H Random Glucose Calcium Phosphorus Magnesium - Impressions ITS Impressions Chest X-Ray 04/30/18 16:59 CONCLUSION: The right hemidiaphragm is elevated. There is right-sided ventriculostomy catheter tubing. Lungs are clear. Head CTA 04/30/18 16:59 CONCLUSION: 1. No evidence of clot or stenosis within the intracranial cerebral vessels. 2. 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 There are bilateral posterior communicating arteries without evidence of aneurysm or stenosis. 3. The middle cerebral circulations appear to be symmetric. 4. These findings were relayed from Dr. Ho to Dr. Doherty at 5:31 PM EDT Neck CTA 04/30/18 16:59 CONCLUSION: 1. There is minimal office or active disease of the origin of both internal carotid vessels. No stenosis is identified. 2. Dr. Ho related results to Dr. Doherty at 1731 hours Skull X-Ray 05/01/18 00:00 CONCLUSION: Shunt pressure reading of 120 mm of H2O. Head CT 05/01/18 05:00 CONCLUSION: 1. There is no hemorrhage following TPA. 2. Overall, stable noncontrast head CT. . Head MRI 05/01/18 07:09 CONCLUSION: 1. Negative for an acute hemorrhage following TPA 2. Ventriculoperitoneal shunt in place 3. Central and cortical atrophy. Discharge Plan - Discharge Disposition Patient Disposition: Disch W/Home Health Service - Discharge Condition Condition: Good - Discharge Order Discharge Orders: Discharge Order (Routine); Ordered 05/03/18 Ordered By: Harshal Zamora - Physicians Team Primary Care Provider: UNKNOWN, Attending Provider: Harshal Zamoar Other Providers: Terri Meeks MD ; Eladio Guido MD ; MateoHumanrachel ; Gray Vega MD
--- NOTE | 2018-05-04 00:55 | HM ---
Date Performed: 04/30/2018 Time Performed: 21:51:00 HOOKUP DATE: 04/30/18 09:51:00 PM Alycia ANALYSIS START TIME: 04/30/2018 9:56:00 PM ANALYSIS END TIME: 05/01/2018 2:41:55 PM PATIENT AGE: 73 PATIENT HEIGHT: 71 PATIENT WEIGHT: 264 DRUG LIST: ROOM 1331 PATIENT DIAGNOSIS: ACUTE CVA TEST NARRATIVE: The patient's average heart rate was 84 BPM. Heart rates greater than 120 B PM were noted 1% of the time. No episodes of bradycardia were noted. No pauses exceeding 2.0 sec onds were noted. 1034 ventricular ectopics, which represented 1% of the total beat count, were no yojana. The highest ventricular ectopic frequency occurred from 12:00 PM to 01:00 PM Fri. During this time 86 VE(s) occurred. Ventricular ectopics were observed as 1034 isolated beat(s) only. No couple ts or runs were noted. 12 supraventricular ectopics, which represented < 1% of the total beat cou nt, were noted. The highest supraventricular ectopic frequency occurred from 02:00 AM to 03:00 AM Fr i. During this time 6 SVE(s) occurred. No episodes of ST depression (defined as -1.0 mm or more) were noted in channel 1. In channel 2, a single episode of ST depression (defined as -1.0 mm or mor e) occurred at 11:24:26 AM Fri with a maximum depression of -1.[address] mm[address] Multiple episodes of ST depress ion (defined as -1.0 mm or more) were noted in channel 3. The maximum depression of -1.8 mm occurre d at 11:23:51 AM Fri. NO DIARY WAS GIVEN TO PATIENT TEST INTERPRETATION: 1) Sinus rhythm 2) Rare PVC/PAC 3) No pauses 4) Few 3-5 beat narrow complex runs, appear regular, probably PAT 5) No diary returned Signed by : Tobias Levine
== END 2018-05-03 15:17 | disposition home health service (06) ==
LOC: NEPE 16:52 → NEDA 17:24 → N03 20:51 → N05 05-02 16:36
PROVIDERS: ADMIT Hospitalist; ATTEND Hospitalist

== ENCOUNTER 2018-06-23 16:09 | Observation (INO) ==
[~2018-06-23 16:09] MED LIST changes: -ASPI-183 PO; -CINN1CAP PO; -COEN1CAP PO; +IPRATROPIUM NASAL PRN; -LOSA50TA PO; -METF1000 PO; -METO50TA PO; -OMEG100010 PO; -PRAV40TA2 PO; -PYRI100T PO; -VITA100018 PO
[2018-06-23] MEDS ORDERED: Morphine Inj 4 MG/ML Vial IV.PUSH ONE (16:17)
[2018-06-23 16:36] LABS: Baso % (Auto) 0.4 % (0.0-2.0); Eos # (Auto) 0.2 th/mm3 (0.0-0.4); Eos % (Auto) 2.1 % (0.0-4.0); Hematocrit 45.8 % (39.0-51.0); Hemoglobin 14.9 gm/dL (13.0-17.0); Lymph # (Auto) 2.6 th/mm3 (1.0-4.8); Lymph % (Auto) 22.7 % (9.0-44.0); Mean Corpuscular HGB Conc 32.5 % (32.0-36.0); Mean Corpuscular Hemoglobin 29.6 pg (27.0-34.0); Mean Corpuscular Volume 91.2 fL (80.0-100.0); Mean Platelet Volume 6.2 fL (7.0-11.0); Mono # (Auto) 0.8 th/mm3 (0.0-0.9); Mono % (Auto) 6.6 % (0.0-8.0); Neut # (Auto) 7.9 th/mm3 (1.8-7.7); Neut % (Auto) 68.2 % (16.0-70.0); Platelet Count 293 th/mm3 (150-450); Red Blood Count 5.02 mil/mm3 (4.50-5.90); Red Cell Distribution Width 12.6 % (11.6-17.2); White Blood Count 11.5 th/mm3 (4.0-11.0)
--- NOTE | 2018-06-23 16:36 | ED ---
HPI General Chief Complaint: Chest Pain Stated Complaint: High BP/Lft Arm Weakness Time Seen by Provider: 06/23/18 16:19 Source: patient and old records reviewed Mode of arrival: ambulatory Limitations: no limitations History of Present Illness MD complaint: Reports chest pain STEMI Alert: No Onset (ago): hour(s) (1) Duration: constant and improved Onset: during rest (While watching TV after eating) Pain location: Reports substernal Severity scale (1-10): 7 Quality: Reports heaviness (Pressure) Pain radiation: Reports none Relieving factors: nothing Exacerbating factors: nothing Context: Reports other (This patient states that he had the acute onset of shaking. He immediately jumped up and took his blood pressure and found it to be elevated. He developed chest pain, nausea, shortness of breath and numbness of the left arm and right leg following that.) Associated symptoms: Reports nausea, dyspnea and other (Shaking, most of the left arm and right leg) Treatments prior to arrival chest pain: Reports none Related Data Home Medications Medication Instructions Recorded Confirmed amlodipine 5 mg PO DAILY 04/30/18 06/23/18 cholecalciferol (vitamin D3) 2,000 unit PO DAILY 04/30/18 06/23/18 [Vitamin D3] fluticasone [Flonase Allergy 1 spray INTRANASAL BID PRN 04/30/18 06/23/18 Relief] glimepiride 1 mg PO QAM 04/30/18 06/23/18 ipratropium bromide 2 spray INTRANASAL TID PRN 04/30/18 06/23/18 levocetirizine 5 mg PO QPM 04/30/18 06/23/18 losartan 50 mg PO DAILY 04/30/18 06/23/18 metformin 500 mg PO BID 04/30/18 06/23/18 metoprolol tartrate 50 mg PO BID 04/30/18 06/23/18 nystatin 1 applic TOPICAL BID 04/30/18 06/23/18 pantoprazole 40 mg PO DAILY 04/30/18 06/23/18 Previous Rx's Medication Instructions Recorded atorvastatin 80 mg PO DAILY #30 tab 05/03/18 clopidogrel [Plavix] 75 mg PO DAILY #30 tab 05/03/18 azithromycin See Label Instructions .ROUTE 05/26/18 .COMPLEX #6 tab dextromethorphan-guaifenesin 1 tab PO BID PRN #30 tab 05/26/18 [Mucinex DM] Allergies Allergy/AdvReac Type Severity Reaction Status Date / Time No Known Allergies Allergy Verified 06/23/18 16:21 Review of Systems ROS: all other systems reviewed are negative [facility] Medical History Medical History CVA (cerebral vascular accident) (Acute) Diabetes (Acute) HTN (hypertension) (Acute) High cholesterol (Acute) Surgical History Surgical History Intracranial shunt (Acute) History of back surgery (Acute) History of hip surgery (Acute) Social History Social History Substance History: No History of Abuse Second Hand Smoke Exposure: No Smoking Status: Former smoker Tobacco Type: Cigarettes How Often Do You Have a Drink Containing Alcohol: Never Recent Travel in [facility] within the Last 8 Weeks: No Recent Out of Country Travel within the Last 8 Weeks: No Immunization History Tetanus Immunization: Unsure Exam Const General: cooperative, healthy appearing, comfortable and other (Extremely anxious) Orientation: alert, awake and oriented x3 HENMT Head: normal to inspection, normocephalic and atraumatic Eyes General: appearance normal, both eyes and all related structures Conjunctivae: conjunctivae normal Sclera: sclerae normal EOM: EOM intact bilaterally Neck Neck: normal visual inspection and full ROM Chest Chest: normal inspection of the chest and tenderness (Mild tenderness of the chest wall) Resp Effort & Inspection: normal respiratory effort and able to speak in complete sentences Auscultation: clear to auscultation bilaterally Cardio Rate: regular rate Rhythm: regular rhythm Heart Sounds: S1 normal and S2 normal GI Inspection: normal to inspection Palpation: soft Back/Spine/Pelvis Cervical Spine: cervical ROM normal Thoracic/Lumbar Spine: thoraco-lumbar ROM normal Skin General: no rashes or lesions noted, turgor normal and dry skin Neuro General: alert, awake, oriented x3, moves all extremities and CN's II-XI intact bilaterally Extrem General: normal to inspection, full ROM and no pedal edema Psych Appearance: grossly normal Mental Status: mental status grossly normal Speech and Movement: speech and movement normal Mood: congruent mood Affect: normal affect Attitude: cooperative Thought Process: normal Thought Content: normal Judgment: judgment good Course Initial Documented Vital Signs Temperature 97.9 F 06/23/18 16:17 Pulse Rate 111 H 06/23/18 16:17 Respiratory Rate 20 06/23/18 16:17 Blood Pressure 219/105 H 06/23/18 16:17 Pulse Oximetry 96 06/23/18 16:17 Last Documented Vital Signs Temperature 97.9 F 06/23/18 16:17 Pulse Rate 96 H 06/23/18 17:31 Respiratory Rate 18 06/23/18 17:31 Blood Pressure 141/87 H 06/23/18 17:31 Pulse Oximetry 99 06/23/18 17:31 Medical Decision Making MDM Narrative Medical decision making narrative: This patient presents with shaking. He immediately took his blood pressure and found it to be elevated. He then developed chest pain, nausea, shortness of breath, left arm/right leg numbness. He then presented to us for evaluation and treatment. The patient is extremely anxious appearing and is very obsessed about his blood pressure. Cardiac workup is in process. Aspirin, Nitropaste, morphine and Ativan have been ordered. I suspect that his symptoms are related to anxiety. However, he does have risk factors for coronary artery disease including hypertension, diabetes, hyperlipidemia. I anticipate an admission to the chest pain center. 5:15 PM The patient's symptoms have completely resolved following Ativan, aspirin, morphine and Nitropaste. Disposition has been discussed with the patient. I have explained to him that I believe that his symptoms are likely due to anxiety. He would like to be admitted to the chest pain center for further interrogation of his heart. Medical Screen Exam Complete: Yes Emergency Medical Condition: Yes Differential Diagnosis Differential Diagnosis: Differential diagnosis of chest pain includes but is not limited to musculoskeletal pain, pulmonary embolism, acute coronary syndrome , pneumonia, pleurisy Medical Records Medical records reviewed: Yes I reviewed the patient's medical records. Negative nuclear stress test done about a year ago. Presented as a stroke alert in April. Subsequent MRI of his brain was negative for acute stroke. Lab Data Lab results reviewed: Yes I reviewed the patient's lab results. Result diagrams: 06/23/18 16:20 06/23/18 16:20 Lab Results 06/23/18 06/23/18 06/23/18 Range/Units 16:20 16:20 16:20 CBC w Diff Auto diff final WBC 11.5 H (4.0-11.0) th/mm3 RBC 5.02 (4.50-5.90) mil/mm3 Hgb 14.9 (13.0-17.0) gm/dL Hct 45.8 (39.0-51.0) % MCV 91.2 (80.0-100.0) fL MCH 29.6 (27.0-34.0) pg MCHC 32.5 (32.0-36.0) % RDW 12.6 (11.6-17.2) % Plt Count 293 (150-450) th/mm3 MPV 6.2 L (7.0-11.0) fL Neut % (Auto) 68.2 (16.0-70.0) % Lymph % (Auto) 22.7 (9.0-44.0) % Dane % (Auto) 6.6 (0.0-8.0) % Eos % (Auto) 2.1 (0.0-4.0) % Baso % (Auto) 0.4 (0.0-2.0) % Neut # (Auto) 7.9 H (1.8-7.7) th/mm3 Lymph # (Auto) 2.6 (1.0-4.8) th/mm3 Dane # (Auto) 0.8 (0.0-0.9) th/mm3 Eos # (Auto) 0.2 (0.0-0.4) th/mm3 Baso # (Auto) 0.0 (0.0-0.2) th/mm3 WBC Differential . Differential Comment . PT 9.9 (9.8-11.6) sec INR 1.0 Ratio APTT 31.8 H (23.4-31.7) sec D-Dimer Quant (PE/DVT) 0.41 (0.00-0.50) mg/L FEU Sodium 138 (136-145) meq/L Potassium 4.0 (3.5-5.1) meq/L Chloride 101 (98-107) meq/L Carbon Dioxide 29.1 (21.0-32.0) meq/L Anion Gap 8 (5-15) meq/L BUN 15 (7-18) mg/dL Creatinine 1.10 (0.60-1.30) mg/dL Estimated GFR 65 L (>89) mL/min Random Glucose 111 H (74-106) mg/dL Calcium 8.8 (8.5-10.1) mg/dL Total Bilirubin 0.4 (0.2-1.0) mg/dL AST 23 (15-37) U/L ALT 33 (12-78) U/L Alkaline Phosphatase 61 (45-117) U/L Troponin I Less than 0.02 L (0.02-0.05) ng/mL Total Protein 7.9 (6.4-8.2) g/dL Albumin 3.8 (3.4-5.0) g/dL Imaging Data Attestation: I personally reviewed and interpreted this imaging study as follows : Radiologist's impression: Chest X-Ray 06/23/18 16:17 CONCLUSION: No acute cardiopulmonary disease. ECG Data EKG Prior to Arrival: No Attestation: I personally reviewed and interpreted this ECG as follows: (Sinus rhythm. Rate 118. ST segment depression in the anterior leads.) Prior ECG tracings: available for review Discharge Plan Discharge Disposition Patient Disposition: ED Admit(ED Internal Use Only) Discharge Order Discharge Orders: ED Use Only Admit Order (Routine); Ordered 06/23/18 Ordered By: Yumiko Vega Discharge Details Diagnosis: Chest pain, Anxiety Physicians Team ED Provider: Yumiko Vega Primary Care Provider: Do Lily Del Angel Rxs /Orders / Referrals /Forms Prescriptions: No Action losartan 50 mg Tablet 50 mg PO DAILY RF: 0 metformin 500 mg Tablet 500 mg PO BID RF: 0 amlodipine 5 mg Tablet 5 mg PO DAILY RF: 0 glimepiride 1 mg Tablet 1 mg PO QAM RF: 0 pantoprazole 40 mg Tablet,Delayed Release (Dr/Ec) 40 mg PO DAILY RF: 0 nystatin 100,000 unit/gram Cream 1 applic TOPICAL BID RF: 0 metoprolol tartrate 50 mg Tablet 50 mg PO BID RF: 0 ipratropium bromide 42 mcg (0.06 %) [place],Non-Aerosol 2 spray INTRANASAL TID PRN (Reason: Nasal Congestion) RF: 0 fluticasone [Flonase Allergy Relief] 50 mcg/actuation [place],Suspension 1 spray INTRANASAL BID PRN (Reason: Allergy Symptoms) RF: 0 levocetirizine 5 mg Tablet 5 mg PO QPM RF: 0 cholecalciferol (vitamin D3) [Vitamin D3] 2,000 unit Tablet 2,000 unit PO DAILY RF: 0 atorvastatin 80 mg Tablet 80 mg PO DAILY Qty: 30 RF: 0 clopidogrel [Plavix] 75 mg Tablet 75 mg PO DAILY Qty: 30 RF: 3 azithromycin 250 mg tablet See Label Instructions .ROUTE .COMPLEX Qty: 6 RF: 0 dextromethorphan-guaifenesin [Mucinex DM] 30-600 mg tablet extended release 12 hr 1 tab PO BID PRN (Reason: cough) Qty: 30 RF: 0 Discharge Instructions Patient Printed Instructions: Chest Pain (ED) Status ED Status: Pending Admission
--- NOTE | 2018-06-23 16:37 | XR ---
EXAM DATE: 06/23/2018 4:33 PM EST AGE/SEX: 73 years / Male INDICATIONS: Mid chest pain and shortness of breath. CLINICAL DATA: This is the patient's initial encounter. Patient reports that signs and symptoms have been present for 1 day and indicates a pain score of 8/10. MEDICAL/SURGICAL HISTORY: Hypertension. Diabetes. None. COMPARISON: [facility], CHEST 2V PA&LAT, 05/26/2018. . FINDINGS: Ventriculoperitoneal shunt tubing is noted traversing the right hemithorax. There is a poor inspirato ry result. The heart is stable. The pulmonary vascular pattern is normal. The lungs are clear. CONCLUSION: No acute cardiopulmonary disease. Electronically signed by: Eladio Hayward MD Board Certified Radiologist 06/23/2018 4:35 PM EST
[2018-06-23 16:42] LABS: Chloride 101 meq/L (98-107); Sodium 138 meq/L (136-145)
[2018-06-23 16:46] LABS: Calcium 8.8 mg/dL (8.5-10.1)
[2018-06-23 16:47] LABS: Albumin 3.8 g/dL (3.4-5.0); Anion Gap 8 meq/L (5-15); Blood Urea Nitrogen 15 mg/dL (7-18); Carbon Dioxide 29.1 meq/L (21.0-32.0); Glucose,Random 111 mg/dL (74-106)
[2018-06-23 16:50] LABS: Alanine Aminotransferase 33 U/L (12-78); Aspartate Aminotransferase 23 U/L (15-37); Glomerular Filtration Rate 65 mL/min (>89)
[2018-06-23 16:51] LABS: Total Protein 7.9 g/dL (6.4-8.2)
[2018-06-23 16:52] LABS: Activated Partial Thrombo Time 31.8 sec (23.4-31.7); Prothrombin Time 9.9 sec (9.8-11.6)
[2018-06-23 16:53] LABS: Alkaline Phosphatase 61 U/L (45-117); D-Dimer 0.41 mg/L FEU (0.00-0.50)
[2018-06-23] MEDS ORDERED: Acetaminophen 325 MG Tablet PO PRN (17:38)
[2018-06-23] MEDS ORDERED: Bisacodyl 10 MG Supp RECTAL PRN (17:38)
[2018-06-23] MEDS ORDERED: DEXTROMETHORPHAN GUAIFENESIN PO PRN (17:41)
[2018-06-23] MEDS ORDERED: Azithromycin 250 MG Tablet PO SCH (17:45)
[2018-06-23] MEDS ORDERED: LEVOCETIRIZINE 5 MG PO SCH (18:00)
[2018-06-23] MEDS ORDERED: guaiFENesin 600 MG ER Tablet PO PRN (21:00)
[2018-06-23] MEDS: Metoprolol Tartrate 50 MG Tablet PO SCH (22:12)
--- NOTE | 2018-06-24 07:48 | P.HP ---
History of Present Illness Primary Care Physician: Do Lily Del Angel Chief Complaint: chest pain History of Present Illness: This is a 73-year-old male patient with a known medical history of hypertension , diabetes, hyperlipidemia and history of CVA presented to the ED with complaints of chest pain as well as elevated blood pressure at home. Patient states that after eating dinner he was sitting there watching TV when he became shaky as well as flushed, he states he became anxious about the symptoms checked his blood pressure and realized his blood pressure was 215/110. At that time he noticed a midsternal chest pain that was pressure-like in nature radiated to his left arm and also noticed that his right leg was numb. He does admit to associated nausea and shortness of breath, denies any actual vomiting or sweating. He denies any recent illness including fever, chills, cough, headache, vomiting, nausea, vomiting, diarrhea or dysuria. Patient does have close follow-up with his PCP Dr. Byrnes, last seen 2 weeks ago with no changes to his medications. Patient does state that he had a cardiac nuclear stress test roughly 1 year ago which was reportedly unremarkable. He does not follow with a television analyzer. His family history is significant for cardiovascular disease as well as diabetes. Patient was hospitalized 2 months ago for stroke workup and at that time an MRI of the brain was negative for any acute abnormalities. 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 Patel, has an appointment to see him in June. - Diagnosis (1) Chest pain (2) Anxiety Review of Systems All other systems reviewed negative except as stated in HPI PMFSH - History History Provided By: Patient - Medical History Medical History: Medical History (Last Reviewed 06/24/18 @ 07:44 by Bridgett Westfall) CVA (cerebral vascular accident) Diabetes HTN (hypertension) High cholesterol - Surgical History Surgical History: Surgical History (Last Reviewed 06/24/18 @ 07:44 by Bridgett Westfall) Intracranial shunt History of back surgery History of hip surgery - Family History Family History: Family History (Last Updated 06/24/18 @ 08:01 by Bridgett Westfall) Other Cardiovascular disease - Social History I have reviewed the patient's Social History: Yes - Tobacco History Second Hand Smoke Exposure: No Smoking Status: Never smoker Tobacco Type: Cigarettes - Alcohol History How Often Do You Have a Drink Containing Alcohol: Never - Substance Use History Substance History: No History of Abuse - Travel History Recent Travel in the [place] Within the Last 8 Weeks: No Recent Travel Out of the Country Within the Last 8 Weeks: No - Immunization History Tetanus Immunization: Unsure Medications and Allergies Active Medications: Active Medications Acetaminophen (Tylenol) 650 mg PO Q4H PRN PRN Reason: Temp > 100.4 Al Hydroxide/Mg Hydroxide (Milk Of Magnesia Liq) 30 ml PO Q12H PRN PRN Reason: Mild Constipation Amlodipine Besylate (Norvasc) 5 mg PO DAILY [facility] Aspirin (Aspirin) 325 mg PO DAILY [facility] Atorvastatin Calcium (Lipitor) 80 mg PO DAILY [facility] Bisacodyl (Dulcolax Supp) 10 mg RECTAL DAILY PRN PRN Reason: SEVERE CONSITIPATION Cetirizine HCl (Zyrtec) 5 mg PO QPM [facility] Clopidogrel Bisulfate (Plavix) 75 mg PO DAILY [facility] Fluticasone Propionate (Flonase Nasal [place]) 1 spray EACH NARE BID PRN PRN Reason: ALLERGY SUMPTOMS Guaifenesin (Mucinex Er) 600 mg PO BID PRN PRN Reason: COUGH Lactulose (Lactulose Liq) 30 ml PO DAILY PRN PRN Reason: SEVERE CONSITIPATION Losartan Potassium (Cozaar) 50 mg PO DAILY [facility] Metoprolol Tartrate (Lopressor) 50 mg PO BID [facility] Last Admin: 06/23/18 22:12 Dose: 50 mg Nitroglycerin (Nitrostat Sl) 0.4 mg SL Q5M PRN PRN Reason: CHEST PAIN Nystatin (Mycostatin Cream) 1 applicatio TOPICAL BID [facility] Last Admin: 06/23/18 22:12 Dose: Not Given Ondansetron HCl (Zofran Inj) 4 mg IV.PUSH Q6H PRN PRN Reason: NAUSEA OR VOMITING Pantoprazole Sodium (Protonix) 40 mg PO DAILY [facility] Pt Own: Ipratropium (Nasal [place]) 0 each NASAL TID PRN PRN Reason: NASAL CONGESTION Sennosides (Senokot) 17.2 mg PO Q12H PRN PRN Reason: Moderate Constipation Sodium Chloride (Ns Flush) 2 ml IV.FLUSH BID [facility] Last Admin: 06/23/18 22:12 Dose: 2 ml Sodium Chloride (Ns Flush) 2 ml IV.FLUSH PRN PRN PRN Reason: FLUSH AFTER USING IV ACCESS Vitamin D (Vitamin D3) 2,000 unit PO DAILY [facility] Allergies Allergy/AdvReac Type Severity Reaction Status Date / Time No Known Allergies Allergy Verified 06/23/18 16:21 Home Medications Medication Instructions Recorded Confirmed Type amlodipine 5 mg PO DAILY 04/30/18 06/23/18 History cholecalciferol (vitamin D3) 2,000 unit PO DAILY 04/30/18 06/23/18 History [Vitamin D3] fluticasone [Flonase Allergy 1 spray INTRANASAL BID PRN 04/30/18 06/23/18 History Relief] glimepiride 1 mg PO QAM 04/30/18 06/23/18 History ipratropium bromide 2 spray INTRANASAL TID PRN 04/30/18 06/23/18 History levocetirizine 5 mg PO QPM 04/30/18 06/23/18 History losartan 50 mg PO DAILY 04/30/18 06/23/18 History metformin 500 mg PO BID 04/30/18 06/23/18 History metoprolol tartrate 50 mg PO BID 04/30/18 06/23/18 History nystatin 1 applic TOPICAL BID 04/30/18 06/23/18 History pantoprazole 40 mg PO DAILY 04/30/18 06/23/18 History Exam Vital signs: Vital Signs 06/23/18 16:17 06/23/18 16:21 06/23/18 16:40 Temperature 97.9 F Pulse Rate 111 H 112 H 101 H Respiratory Rate 20 18 18 Blood Pressure 219/105 H 164/82 H 141/87 H Pulse Oximetry 96 97 97 06/23/18 17:08 06/23/18 17:31 06/23/18 17:59 Temperature Pulse Rate 98 H 96 H 97 H Respiratory Rate 18 18 18 Blood Pressure 152/82 H 141/87 H Pulse Oximetry 97 99 97 06/23/18 20:00 06/24/18 00:00 06/24/18 00:05 Temperature 97.8 F 97.8 F Pulse Rate 90 90 69 Respiratory Rate 16 16 Blood Pressure 169/88 H 149/76 H Pulse Oximetry 96 95 06/24/18 04:00 06/24/18 04:07 Temperature 97.8 F Pulse Rate 77 64 Respiratory Rate 16 Blood Pressure 152/75 H Pulse Oximetry 96 Intake & Output 06/23/18 06/24/18 06/24/18 18:59 06:59 18:59 Intake Total 0 / 0 Balance 0 / 0 Weight 117 kg 117 kg Intake: Oral 0 / 0 Other: # Voids 3 Date of Last Bowel Movement 06/22/18 Weight On Admission 117 kg Narrative: GENERAL: Well-developed, well-nourished patient in [facility]. SKIN: Warm and dry. No rash. HEAD: Normocephalic. Atraumatic. EYES: Pupils equal and round. No scleral icterus. No injection or drainage. ENT: No nasal bleeding or discharge. Mucous membranes pink and moist. NECK: Supple. Trachea midline. CARDIOVASCULAR: Regular rate and rhythm. S1, S2 noted. No murmur appreciated. No chest pain to palpation. RESPIRATORY: No accessory muscle use. Clear to auscultation. Breath sounds equal bilaterally. GASTROINTESTINAL: Abdomen soft, non-tender, nondistended. Normoactive bowel sounds x4. MUSCULOSKELETAL: No obvious deformities. Extremities without clubbing, cyanosis , or edema. NEUROLOGICAL: Awake and alert. No obvious cranial nerve deficits. Motor grossly within normal limits. 5/5 muscle strength in bilateral upper and lower extremities. Normal speech. PSYCHIATRIC: Appropriate mood and affect; insight and judgment normal. Results - Labs CBC & Chem 7: 06/23/18 16:20 06/23/18 16:20 Labs: Laboratory Results - last 24 hr 06/23/18 06/23/18 06/23/18 16:20 16:20 16:20 CBC w Diff Auto diff final WBC 11.5 H RBC 5.02 Hgb 14.9 Hct 45.8 MCV 91.2 MCH 29.6 MCHC 32.5 RDW 12.6 Plt Count 293 MPV 6.2 L Neut % (Auto) 68.2 Lymph % (Auto) 22.7 [place] % (Auto) 6.6 Eos % (Auto) 2.1 Baso % (Auto) 0.4 Neut # (Auto) 7.9 H Lymph # (Auto) 2.6 [place] # (Auto) 0.8 Eos # (Auto) 0.2 Baso # (Auto) 0.0 WBC Differential . Differential Comment . PT 9.9 INR 1.0 APTT 31.8 H D-Dimer Quant (PE/DVT) 0.41 Sodium 138 Potassium 4.0 Chloride 101 Carbon Dioxide 29.1 Anion Gap 8 BUN 15 Creatinine 1.10 Estimated GFR 65 L Random Glucose 111 H Calcium 8.8 Total Bilirubin 0.4 AST 23 ALT 33 Alkaline Phosphatase 61 Troponin I Less than 0.02 L Total Protein 7.9 Albumin 3.8 06/23/18 06/24/18 19:30 01:05 CBC w Diff WBC RBC Hgb Hct MCV MCH MCHC RDW Plt Count MPV Neut % (Auto) Lymph % (Auto) [place] % (Auto) Eos % (Auto) Baso % (Auto) Neut # (Auto) Lymph # (Auto) [place] # (Auto) Eos # (Auto) Baso # (Auto) WBC Differential Differential Comment PT INR APTT D-Dimer Quant (PE/DVT) Sodium Potassium Chloride Carbon Dioxide Anion Gap BUN Creatinine Estimated GFR Random Glucose Calcium Total Bilirubin AST ALT Alkaline Phosphatase Troponin I 0.04 0.04 Total Protein Albumin - Imaging Impressions Chest X-Ray 06/23/18 16:17 CONCLUSION: No acute cardiopulmonary disease. Caprini VTE Risk Assessment Caprini VTE Risk Assessment: Moderate/High Risk (score >= 2) Caprini Risk Assessment Model: Point Value = 1 Point Value = 2 Point Value = 3 Point Value = 5 Age 41-60 Minor surgery BMI > 25 kg/m2 Swollen legs Varicose veins or History of unexplained or recurrent spontaneous Oral contraceptives or hormone replacement Sepsis (< 1 month) Serious lung disease, including pneumonia (< 1 month) Abnormal pulmonary function Acute myocardial infarction Congestive heart failure (< 1 month) History of inflammatory bowel disease Medical patient at bed rest Age 61-74 Arthroscopic surgery Major open surgery (> 45 min) Laparoscopic surgery (> 45 min) Malignancy Confined to bed (> 72 hours) Immobilizing plaster cast Central venous access Age >= 75 History of VTE Family history of VTE Factor V Leiden Prothrombin [id number] Lupus anticoagulant Anticardiolipin antibodies Elevated serum homocysteine Heparin-induced thrombocytopenia Other congenital or acquired thrombophilia Stroke (< 1 month) Elective arthroplasty Hip, pelvis, or leg fracture Acute spinal cord injury (< 1 month) Prophylaxis Regimen: Total Risk Factor Score Risk Level Prophylaxis Regimen 0-1 Low Early ambulation 2 Moderate Order ONE of the following: *Sequential Compression Device (SCD) *Heparin 5000 units SQ BID 3-4 Higher Order ONE of the following medications: *Heparin 5000 units SQ TID *Enoxaparin/Lovenox 40 mg SQ daily (WT < 150 kg, CrCl > 30 mL/min) *Enoxaparin/Lovenox 30 mg SQ daily (WT < 150 kg, CrCl > 10-29 mL/min) *Enoxaparin/Lovenox 30 mg SQ BID (WT < 150 kg, CrCl > 30 mL/min) AND/OR *Sequential Compression Device (SCD) 5 or more Highest Order ONE of the following medications: *Heparin 5000 units SQ TID (Preferred with Epidurals) *Enoxaparin/Lovenox 40 mg SQ daily (WT < 150 kg, CrCl > 30 mL/min) *Enoxaparin/Lovenox 30 mg SQ daily (WT < 150 kg, CrCl > 10-29 mL/min) *Enoxaparin/Lovenox 30 mg SQ BID (WT < 150 kg, CrCl > 30 mL/min) AND *Sequential Compression Device (SCD) Assessment and Plan - Assessment (1) Chest pain Code(s): R07.9 - Chest pain, unspecified Status: Acute (2) Anxiety Code(s): F41.9 - Anxiety disorder, unspecified Status: Acute - Plan This is a 73-year-old male patient presented to the ED with: Chest pain -Patient has been admitted to chest pain center for observation. -Serial EKGs and serial troponins have been ordered for ruling out ACS purposes. Troponin trend flat. -EKG reviewed showing sinus tachycardia with mild ST segment depression in the anterior leads. -Patient continued on cardiac telemetry overnight, no arrhythmias noted. -Chest x-ray reviewed showing no acute cardiopulmonary disease. -CBC and BMP reviewed, essentially unremarkable. D-dimer negative. -ACS ruled out with serial troponins and serial EKGs, patient with risk factors of hypertension, diabetes and hyperlipidemia. -Patient will undergo a cardiac Lexiscan to further rule out any ischemia. -Was given Ativan in the ED, patient states he feels much improved. It does appear that patient's and subsequently has elevated blood pressure. It was recommended that patient follow with his and possibly be prescribed and as needed antihypertensive as well as an benzodiazepine for these episodes. -Further hospitalization and treatment plan will depend on nuclear imaging results. -Patient is stable at this time and agreeable to the plan. Hypertension -Patient presented with significantly elevated blood pressure with systolic in the 200s. This is now controlled. Will continue home antihypertensives. Monitor blood pressure trends. History of diabetes mellitus, chronic -Accu-Chek before meals at bedtime, sliding scale, cover as needed. Monitor for any hypoglycemia. DVT prophylaxis: SCDs. (1) Chest pain Qualifiers: Chest pain type: unspecified Qualified Code(s): R07.9 - Chest pain, unspecified
[2018-06-24 08:32] VITALS: RESP 18
[2018-06-24] MEDS ORDERED: amLODIPine 5 MG Tablet PO SCH (09:00)
[2018-06-24] MEDS: Metoprolol Tartrate 50 MG Tablet PO SCH (09:29)
--- NOTE | 2018-06-24 11:46 | NM ---
EXAM DATE: 06/24/2018 11:42 AM EST AGE/SEX: 73 years / Male INDICATIONS:Angina. . Chest pressure radiating to left arm and elevated blood pressure. CLINICAL DATA: This is the patient's initial encounter. Patient reports that signs and symptoms have been present for 1 day and indicates a pain score of 4/10. MEDICAL/SURGICAL HISTORY: Stroke. Diabetes. Hypercholesterolemia. Hypertension. . Intracran ial shunt, back and hip surgery. COMPARISON: [facility] [place], MYOCARDIAL PERF PHARM SPECT, 06/13/2017. . DOSE: 11.1 mCi Tc 99m Myoview at rest 35.0 mCi [id number]-Lepydcy at stress 0.4 mg Lexiscan STRESS SYMPTOMS: Short of breath and chest tightness. EJECTION FRACTION: 65 % TECHNIQUE: The patient underwent pharmacologic stress with infusion of prescribed dose. Continuous ECG tracing was monitored during stress. Gated SPECT imaging was performed after stress and conventi onal SPECT imaging was performed at rest. The examination was performed on a SPECT/CT scanner, both attenuation and non-corrected datasets were reviewed. FINDINGS: Distribution: The maximum perfused segment at stress is in the lateral wall. Perfusion Study: The pattern of perfusion at stress is within normal limits. Gated Study: There are intact wall motion and wall thickening without hypokinetic or dyskinetic segm ents. The ejection fraction is calculated at 65%. RISK CATEGORY: Low (<1% Annual Motality Rate) CONCLUSION: 1. Unremarkable myocardial perfusion examination. Stable exam compared to the prior study. Electronically signed by: Kenneth Liz MD Board Certified Radiologist 06/24/2018 11:45 AM EST
[2018-06-24 12:06] VITALS: BP 138/78; PULSE 76; TEMP 97.5; O2SAT 95
--- NOTE | 2018-06-24 15:02 | ECG ---
Date Performed: 06/24/2018 Time Performed: 00:52:08 PTAGE: 73 years EKG: Sinus rhythm WITH FIRST DEGREE AV BLOCK ABNORMAL ECG PREVIOUS TRACING : 06/23/2018 19.24 Since previous tracing, no significant change noted DOCTOR: Ayaan Macdonald Interpretating Date/Time 06/24/2018 15:01:20
--- NOTE | 2018-06-24 15:02 | ECG ---
Date Performed: 06/23/2018 Time Performed: 19:24:11 PTAGE: 73 years EKG: Sinus rhythm MODERATE INTRAVENTRICULAR CONDUCTION DELAY MODERATE ST DEPRESSION ABNORMAL ECG PREVIOUS TRACING : 06/23/2018 16.14 Since previous tracing, no significant change noted DOCTOR: Ayaan Macdonald Interpretating Date/Time 06/24/2018 15:02:00
--- NOTE | 2018-06-24 15:03 | ECG ---
Date Performed: 06/23/2018 Time Performed: 16:14:04 PTAGE: 73 years EKG: SINUS TACHYCARDIA ST DEPRESSION, CONSIDER SUBENDOCARDIAL INJURY ABNORMAL ECG PREVIOUS TRACING : 05/26/2018 21.19 Since previous tracing, rate is faster. ST depression now s een. DOCTOR: Ayaan Macdonlad Interpretating Date/Time 06/24/2018 15:03:01
--- NOTE | 2018-06-24 15:05 | ECG ---
Date Performed: 06/24/2018 Time Performed: 08:26:35 PTAGE: 73 years EKG: Sinus rhythm MINIMAL ST DEPRESSION BORDERLINE ECG PREVIOUS TRACING : 06/24/2018 00.52 Since previous tracing, no significant change noted DOCTOR: Ayaan Macdonald Interpretating Date/Time 06/24/2018 15:04:29
--- NOTE | 2018-06-24 15:13 | TR ---
Date Performed: 06/24/2018 Time Performed: 10:41:18 DOCTOR: Ayaan Macdonald DRUG LIST: CLINICAL HISTORY: REASON FOR TEST: Angina REASON FOR ENDING: OBSERVATION: CONCLUSION: COMMENTS: Lexiscan stress test was performed under standard four minute protocol. Radionuclide was injected one minute prior to ending the test. No electrocardiographic abormalities were present t o suggest ischemia. Nuclear imaging and interpretation are pending.
[2018-06-24] MEDS ORDERED: Regadenoson Inj 0.4 MG/5 ML Syringe IV.PUSH ONE (17:38)
[2018-06-24] MEDS ORDERED: Aspirin 325 MG Tablet PO SCH (18:00)
== END 2018-06-24 16:32 | disposition home or self-care (01) ==
LOC: PHEDA 16:09 → PHED 16:09 → PH3 18:40
PROVIDERS: ADMIT Internal Medicine; ATTEND Internal Medicine
DX: F41.9 Anxiety disorder, unspecified; E78.00 Pure hypercholesterolemia, unspecified; Z83.3 Family history of diabetes mellitus; Z82.49 Family history of ischemic heart disease and other diseases of the circulatory system; R00.0 Tachycardia, unspecified; Z79.02 Long term (current) use of antithrombotics/antiplatelets; E78.5 Hyperlipidemia, unspecified; Z79.84 Long term (current) use of oral hypoglycemic drugs; E11.9 Type 2 diabetes mellitus without complications; I10 Essential (primary) hypertension; R94.31 Abnormal electrocardiogram [ECG] [EKG]; F17.210 Nicotine dependence, cigarettes, uncomplicated; Z86.73 Personal history of transient ischemic attack (TIA), and cerebral infarction without residual deficits; R07.9 Chest pain, unspecified
CPT/HCPCS: 71010; 71045; 78452; 80053; 84484; 85025; 85379; 85610; 85730; 90774; 90775; 93005; 93017; 96374; 96375; 99285; A9502; C8952; G0378; J2060; J2270; J2785; Q9969